=== PATIENT | male | born 1955 | race Caucasian/White ===

== ENCOUNTER 2018-06-28 08:51 | Inpatient (IN) | payer SELFPAY ==
[2018-06-28 10:18] LABS: Hemoglobin 15.9 g/dL (14.0-18.0); Mean Corpuscular HGB CONC 33.7 g/dL (32.0-36.0); Mean Corpuscular Hemoglobin 31.8 pg (27.0-31.0); Mean Corpuscular Volume 94.3 fL (78.0-98.0); Platelet Count 238 thou/uL (130-400); RBC Distribution Width 12.5 % (11.5-14.5); Red Blood Cell (RBC) Count 4.99 mill/uL (4.70-6.10); White Blood Cell (WBC) Count 17.2 thou/uL (4.8-10.8)
[2018-06-28] MEDS ORDERED: Morphine 4 MG/ML VIAL ONE ×2 (10:43→11:36)
[2018-06-28 10:44] LABS: ALT (SGPT) 38 U/L (8-55); AST (SGOT) 28 U/L (5-34); Albumin 3.9 g/dL (3.4-4.8); Alkaline Phosphatase 68 U/L (40-150); Anion Gap 16 mmol/L (10-20); BUN (Urea Nitrogen) 15 mg/dL (8.4-25.7); Bilirubin, Total 1.4 mg/dL (0.2-1.2); Calc. Creatinine Clearance 0 mL/min (70-130); Calcium 9.8 mg/dL (7.8-10.44); Carbon Dioxide 24 mmol/L (23-31); Chloride 91 mmol/L (98-107); Estimated GFR-MDRD 66; Globulin 3.3 g/dL (2.4-3.5); Glucose 123 mg/dL (80-115); Potassium 4.2 mmol/L (3.5-5.1); Protein, Total 7.2 g/dL (5.8-8.1); Sodium 127 mmol/L (136-145)
[2018-06-28 10:59] LABS: Band 49 % (5-11); Lymphocytes 1 % (21-51); MDiff Complete? YES; Metamyelocyte 4 % (0-0); Monocytes 2 % (0-10); Neutrophil 44 % (42-75); Platelet Morphology Comment Appears Adequate; Polychromasia SLIGHT = 2-3 cells (100X) (0-2/hpf); Reflex for Review?? YES
[2018-06-28] MEDS ORDERED: Enoxaparin Sodium 100 MG/ML SYRINGE ONE (11:36)
--- NOTE | 2018-06-28 12:10 | ULT ---
VENOUS DOPPLER ULTRASOUND OF THE LEFT LOWER EXTREMITY: HISTORY: Left leg edema and pain. TECHNIQUE: [place]edo scale ultrasound with color flow and spectral Doppler imaging of the deep venous system of the l eft lower extremity was performed. FINDINGS: There is absence of compression with some flow due to nonocclusive thrombus in the common femoral, de ep femoral, proximal and mid femoral veins. There is absence of flow and compressibility due to occl usive thrombus in the distal femoral, popliteal, and posterior tibial veins. IMPRESSION: Deep vein thrombosis in the left lower extremity. Discussed over the telephone with ER physician, Dr. Sebas Reno, at 11:36 a.m. CODE CR POS: OFF
[2018-06-28] MEDS ORDERED: Clindamycin/D5W 900 mg/50 ml Premix Bag ONE (12:26)
[2018-06-28] MEDS ORDERED: Ondansetron PF 4 MG/2 ML Vial IVP PRN (13:20)
[2018-06-28] MEDS ORDERED: Ondansetron ODT 4 MG TAB PO PRN (13:20)
[2018-06-28] MEDS ORDERED: HYDROcodone/Acetaminophen 5/325 mg Tablet PO PRN (13:20)
[2018-06-28 14:11] VITALS: BMI 23.6
[2018-06-28 14:12] LABS: Lactic Acid 3.7 mmol/L (0.5-2.2)
[2018-06-28] MEDS: Sodium Chloride 0.9% 1,000 ML IV SCH (16:34)
[2018-06-28] MEDS: Enoxaparin Sodium 100 MG/ML SYRINGE SC SCH (20:11)
[2018-06-28] MEDS: Famotidine 20 MG TAB PO SCH (20:12)
[2018-06-28] MEDS: HYDROcodone/Acetaminophen 5/325 mg Tablet PO PRN (20:14)
--- NOTE | 2018-06-28 21:03 | HP ---
PRIMARY CARE PROVIDER: Araceli Herrera MD. CHIEF COMPLAINT: Left lower extremity pain. HISTORY OF PRESENT ILLNESS: This is a 62-year-old male, who presents to [facility] Emergency Department complaining of approximately 48-hour history of left lower extremity pain, swelling, and redness. The patient thought that he initially sustained a spider bite to the lower extremity, but did not actually witness this. 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 The patient denied any direct trauma, injury, or recent injury to the left lower extremity. The patient states he woke up in the morning with swelling to the leg with redness and pain in his groin noting the redness extended from his lower leg to the groin on the inner aspect of his leg. The patient did not take any specific alleviating medication or treatment for his symptoms. The patient denies any prior similar history, exposure history, recent travel, or change to his chronic medication regimen. The patient denies any dysuria, change to his bowel habits, cough, shortness of breath, or documented fever. In the emergency room, the patient underwent general evaluation with left lower extremity venous Doppler study showing evidence of DVT. The patient received Lovenox 1 mg/kg x1 dose in the emergency room as well as clindamycin, vancomycin, morphine sulfate, and intravenous normal saline. The patient was transferred to the medical floor for further evaluation. PAST MEDICAL HISTORY: 1. Hypertension. 2. Seasonal allergies. 3. Depression. PAST SURGICAL HISTORY: 1. Status post sinus surgery. 2. Status post left patellar tendon repair. CURRENT MEDICATIONS: List will need to be obtained by family members. ALLERGIES: NO KNOWN DRUG ALLERGIES. FAMILY HISTORY: No inheritable disease per patient report. SOCIAL HISTORY: The patient resides in [place], [place]. Weekly alcohol use. No tobacco or illicit drug use. 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 REVIEW OF SYSTEMS: CONSTITUTIONAL: Negative for weight loss or gain, ability to conduct usual activities. SKIN: Negative for rash, itching. EYES: Negative for double vision, pain. ENT/MOUTH: Negative for nose bleeding, neck stiffness, pain, tenderness. CARDIOVASCULAR: Negative for palpitations, dyspnea on exertion, orthopnea. RESPIRATORY: Negative for shortness of breath, wheezing, cough, hemoptysis, fever or night sweats. GASTROINTESTINAL: Negative for poor appetite, abdominal pain, heartburn, nausea, vomiting, constipation, or diarrhea. GENITOURINARY: Negative for urgency, frequency, dysuria, nocturia. MUSCULOSKELETAL: Negative for pain, swelling. NEUROLOGIC/PSYCHIATRIC: Negative for anxiety, depression. ALLERGY/IMMUNOLOGIC: Negative for skin rash, bleeding tendency. Otherwise, negative except as stated per HPI. PHYSICAL EXAMINATION: VITAL SIGNS: On admission, blood pressure 128/79, pulse 111, respiratory rate 16, temperature 98.4 degrees Fahrenheit, O2 saturation 100% on room air. GENERAL APPEARANCE: This is a 62-year-old male, alert and oriented x3, pleasant, conversant, in no acute distress. HEENT: Pupils are equal, round, reactive to light and accommodation. Extraocular muscles are intact. No scleral icterus. No conjunctival injection. Nares are patent. OP is clear. Teeth in fair repair. NECK: Supple. No cervical adenopathy. No thyromegaly. No carotid bruits. No JVD appreciated. Cervical spine with full active and passive range of motion. No meningeal signs noted. CHEST: Lungs are clear to auscultation bilaterally. CARDIOVASCULAR: S1 and S2 without noted murmur, rub, or gallop. Tachycardia noted. ABDOMEN: Rounded, soft, nontender, and nondistended. Bowel sounds are positive in all 4 quadrants. There is no hepatosplenomegaly. No abdominal bruits. No rebound or guarding appreciated. EXTREMITIES: Left lower extremity edema with circumferential erythema from the mid portion of the rosales to the ankle region with positive warmth to touch. Medial aspect of the left lower extremity with erythema extending to the groin. Positive lymphadenopathy noted. Pulses are palpable distally at the dorsalis pedis, posterior tibial, and popliteal arteries bilaterally. Capillary refill less than 2 seconds. NEUROLOGIC: Cranial nerves 2 through 12 are grossly intact. No focal or lateralizing signs appreciated. PERTINENT LAB AND X-RAY FINDINGS: Sodium 127, potassium 4.2, chloride 91, CO2 of 24, BUN 15, creatinine 1.12, estimated GFR 66, glucose 123, lactic acid level 3.8, calcium 9.8. LFTs within normal limits. CBC showed a white blood cell count of 17.2, hemoglobin 16, hematocrit 47, platelet count 238 with 44% neutrophils, 49% bands. Left lower extremity venous Doppler study dated 06/28/2018, showed DVT of the left lower extremity involving the common femoral, deep femoral, proximal, and mid femoral veins. ASSESSMENT AND PLAN: 1. Acute left lower extremity deep venous thrombosis. The patient will be admitted to the medical floor. We will continue Lovenox 90 mg subcutaneously q.12 hours. We will consider oral anticoagulation options prior to discharge. Elevate left lower extremity while in bed. 2. Left lower extremity cellulitis. We will continue vancomycin 1.25 g IV q.12 hours with additional Zosyn 3.375 g IV q.6 hours. Serial monitoring. No open wounds requiring wound care. 3. Hyponatremia. Exact etiology unclear. We will repeat sodium level in the a.m. The patient received 1 L intravenous normal saline in the emergency room. 4. Lactic acidosis. Secondary to acute left lower extremity deep venous thrombosis and left lower extremity cellulitis. No current evidence to suggest sepsis. 5. Prophylaxis. We will hold SCDs due to edema and cellulitis. Pepcid 20 mg p.o. b.i.d. 6. Code status is full. Surrogate medical decision maker is the patient's brother. Job ID: [id number]
[2018-06-28] MEDS: Piperacillin/Tazobactam 3.375 GM in Sodium Chloride 0.9% 100 ML IVPB SCH (21:35)
[2018-06-28] MEDS: Vancomycin HCl 1.25 GM in Sodium Chloride 0.9% 250 ML 250 ML IVPB SCH (22:52)
[2018-06-29] MEDS: Sodium Chloride 0.9% 1,000 ML IV SCH ×4 (01:48→20:59)
[2018-06-29] MEDS: Piperacillin/Tazobactam 3.375 GM in Sodium Chloride 0.9% 100 ML IVPB SCH ×3 (03:14→21:06)
[2018-06-29 08:11] LABS: Anion Gap 13 mmol/L (10-20); BUN (Urea Nitrogen) 21 mg/dL (8.4-25.7); Calc. Creatinine Clearance 113 mL/min (70-130); Calcium 8.4 mg/dL (7.8-10.44); Carbon Dioxide 25 mmol/L (23-31); Chloride 96 mmol/L (98-107); Estimated GFR-MDRD Greater than 90; Glucose 81 mg/dL (80-115); Potassium 4.1 mmol/L (3.5-5.1); Sodium 130 mmol/L (136-145)
[2018-06-29] MEDS: Enoxaparin Sodium 100 MG/ML SYRINGE SC SCH ×2 (08:27→20:15)
[2018-06-29] MEDS: HYDROcodone/Acetaminophen 5/325 mg Tablet PO PRN ×2 (08:27→20:14)
[2018-06-29] MEDS: Famotidine 20 MG TAB PO SCH ×2 (08:28→20:14)
[2018-06-29 08:38] LABS: Hemoglobin 13.8 g/dL (14.0-18.0); Mean Corpuscular HGB CONC 33.5 g/dL (32.0-36.0); Mean Corpuscular Hemoglobin 31.8 pg (27.0-31.0); Mean Corpuscular Volume 94.9 fL (78.0-98.0); Mean Platelet Volume 7.9 fL (7.4-10.4); Platelet Count 161 thou/uL (130-400); RBC Distribution Width 12.6 % (11.5-14.5); Red Blood Cell (RBC) Count 4.34 mill/uL (4.70-6.10); White Blood Cell (WBC) Count 9.9 thou/uL (4.8-10.8)
[2018-06-29 09:13] LABS: Band 20 % (5-11); Eosinophils 1 % (0-10); Large Platelets SLIGHT; Lymphocytes 2 % (21-51); MDiff Complete? YES; Metamyelocyte 2 % (0-0); Monocytes 8 % (0-10); Neutrophil 65 % (42-75); Platelet Morphology Comment Appears Adequate; Polychromasia SLIGHT = 2-3 cells (100X) (0-2/hpf); Reactive Lymphocytes 2 % (0-10)
[2018-06-29] MEDS ORDERED: Artificial Tear Sol 15 ML BOT EA EYE PRN (10:12)
[2018-06-29] MEDS ORDERED: Zolpidem Tartrate 5 MG TAB PO PRN (10:12)
[2018-06-29] MEDS ORDERED: Eucerin (Mineral Oil/Petrolatum,White) 30 gm Jar TOP PRN (10:12)
[2018-06-29] MEDS ORDERED: hydrALAZINE 20 MG/ML VIAL SLOW IVP PRN (10:12)
[2018-06-29] MEDS ORDERED: Diabetic Tussin 200 MG/10 ML UDCUP PO PRN (10:12)
[2018-06-29] MEDS ORDERED: Cepastat Lozenges 1 LOZ PO PRN (10:12)
[2018-06-29] MEDS ORDERED: Loperamide HCl 2 MG CAP PO PRN (10:12)
[2018-06-29] MEDS ORDERED: Bisacodyl 10 MG SUPP PR PRN (10:12)
[2018-06-29] MEDS ORDERED: Sodium Chloride 0.65% Nasal 44 ML BOT EA NARE PRN (10:12)
--- NOTE | 2018-06-29 11:15 | PDOC.PN ---
- Subjective Encounter Start Date: 06/29/18 Encounter Start Time: 09:40 -: old records requested/rev Patient seen and examined. No new complaints. No overnight events has left leg pain - Objective Resuscitation Status - Order Detail: 06/28/18 13:15 Resuscitation Status Routine Resuscitation Status: FULL: Full Resuscitation MAR Reviewed: Yes Vital Signs & Weight: Vital Signs (12 hours) Temp Pulse Resp BP Pulse Ox 06/29/18 08:00 97.9 F 86 18 119/69 99 06/29/18 03:20 98.1 F 80 18 102/67 95 06/29/18 00:00 97.5 F L 90 18 108/71 96 Weight Weight 194 lb 0.108 oz I&O: 06/28/18 06/29/18 06/30/18 06:59 06:59 06:59 Intake Total 1600 Output Total 450 Balance 1150 Result Diagrams: 06/29/18 07:20 06/29/18 07:20 Radiology Reviewed by me: Yes Phys Exam - Physical Examination Constitutional: NAD HEENT: PERRLA, moist MMs, sclera anicteric Neck: no JVD, supple Respiratory: no wheezing, no rales, no rhonchi Cardiovascular: RRR, no significant murmur, no rub Gastrointestinal: soft, non-tender, no distention, positive bowel sounds left leg swelling and tenderness Neurological: non-focal, normal sensation, moves all 4 limbs Lymphatic: no nodes Psychiatric: normal affect, A&O x 3 Skin: no rash, normal turgor Dx/Plan (1) Cellulitis of left leg Code(s): L03.116 - CELLULITIS OF LEFT LOWER LIMB Status: Acute (2) Deep vein thrombosis (DVT) of left lower extremity Code(s): I82.402 - ACUTE EMBOLISM AND THOMBOS UNSP DEEP VEINS OF L LOW EXTREM Status: Acute (3) Hyponatremia Code(s): E87.1 - HYPO-OSMOLALITY AND HYPONATREMIA Status: Acute (4) Lactic acidosis Code(s): E87.2 - ACIDOSIS Status: Acute (5) Anxiety and depression Code(s): F41.9 - ANXIETY DISORDER, UNSPECIFIED; F32.9 - MAJOR DEPRESSIVE DISORDER, SINGLE EPISODE, UNSPECIFIED Status: Chronic - Plan cont current plan of care, continue antibiotics * continue lovenox * continue vancomycin and zosyn * keep leg elevated * medication reviewed as below * symptomatic treatment. Review of Systems - Review of Systems Respiratory: negative: Cough, Dry, Shortness of Breath, Hemoptysis, SOB with Excertion, Pleuritic Pain, Sputum, Wheezing Cardiovascular: negative: chest pain, palpitations, orthopnea, paroxysmal nocturnal dyspnea, edema, light headedness, other Gastrointestinal: negative: Nausea, Vomiting, Abdominal Pain, Diarrhea, Constipation, Melena, Hematochezia, Other Genitourinary: negative: Dysuria, Frequency, Incontinence, Hematuria, Retention , Other Musculoskeletal: Leg Pain. negative: Neck Pain, Shoulder Pain, Arm Pain, Back Pain, Hand Pain, Foot Pain, Other Skin: negative: Rash, Lesions, Abiodun, Bruising, Other - Medications/Allergies Allergies/Adverse Reactions: Allergies Allergy/AdvReac Type Severity Reaction Status Date / Time clonidine Allergy Unknown Verified 06/28/18 14:23 lisinopril Allergy Unknown Verified 06/28/18 14:18 Medications: Current Medications Acetaminophen (Tylenol) 1,000 mg PO Q6H PRN PRN Reason: Mild Pain (1-3) Hydrocodone Bitart/Acetaminophen ([place] 5/325) 1 tab PO Q4H PRN PRN Reason: Moderate Pain (4-6) Last Admin: 06/28/18 14:42 Dose: 1 tab Hydrocodone Bitart/Acetaminophen ([place] 5/325) 2 tab PO Q4H PRN PRN Reason: Severe Pain (7-10) Last Admin: 06/29/18 08:27 Dose: 2 tab Artificial Tears (Liquitears 15ml Bottle) 2 drop EA EYE PRN PRN PRN Reason: Dry Eyes Bisacodyl (Dulcolax) 10 mg MD DAILYPRN PRN PRN Reason: Constipation Enoxaparin Sodium (Lovenox) 90 mg SC 0900,2100 [facility] Last Admin: 06/29/18 08:27 Dose: 90 mg Famotidine (Pepcid) 20 mg PO BID [facility] Last Admin: 06/29/18 08:28 Dose: 20 mg Guaifenesin (Robitussin Sf) 200 mg PO Q4H PRN PRN Reason: Cough Hydralazine HCl (Apresoline) 10 mg SLOW IVP Q4H PRN PRN Reason: SBP > 180 and HR < 70 Piperacillin Sod/Tazobactam (Sod 3.375 gm/ Sodium Chloride) 100 mls @ 200 mls/ hr IVPB 0400,1600,2200 [facility] Last Admin: 06/29/18 03:14 Dose: 100 mls Vancomycin HCl 1.25 gm/ Sodium (Chloride) 250 mls @ 166.67 mls/hr IVPB 1100, 2300 [facility] Last Admin: 06/28/18 22:52 Dose: 250 mls Sodium Chloride (Normal Saline 0.9%) 1,000 mls @ 100 mls/hr IV .Q10H [facility] Last Admin: 06/29/18 03:16 Dose: 1,000 mls Loperamide HCl (Imodium) 2 mg PO PRN PRN PRN Reason: Diarrhea/Loose Stools Loratadine (Claritin) 10 mg PO DAILYPRN PRN PRN Reason: Sinus Symptoms Mineral Oil/White Petrolatum (Eucerin Cream) 0 gm TOP BIDPRN PRN PRN Reason: Dry Skin Ondansetron HCl (Zofran Odt) 4 mg PO Q6H PRN PRN Reason: Nausea/Vomiting Ondansetron HCl (Zofran) 4 mg IVP Q6H PRN PRN Reason: Nausea/Vomiting Senna/Docusate Sodium (Senokot S) 2 tab PO BID PRN PRN Reason: Constipation Sodium Chloride ([place] Nasal [place] 0.65%) 0 ml EA NARE QIDPRN PRN PRN Reason: Nasal Congestion Throat Lozenges (Cepastat Lozenges) 1 vikram PO Q2H PRN PRN Reason: Sore Throat Zolpidem Tartrate (Ambien) 5 mg PO HSPRN PRN PRN Reason: Insomnia
[2018-06-29] MEDS: Vancomycin HCl 1.25 GM in Sodium Chloride 0.9% 250 ML 250 ML IVPB SCH ×2 (12:14→22:34)
[2018-06-29] MEDS: Senokot S 8.6-50 MG TAB PO PRN (20:15)
[2018-06-30] MEDS: Piperacillin/Tazobactam 3.375 GM in Sodium Chloride 0.9% 100 ML IVPB SCH ×3 (03:07→21:53)
[2018-06-30] MEDS: HYDROcodone/Acetaminophen 5/325 mg Tablet PO PRN ×3 (03:11→23:00)
[2018-06-30] MEDS: Sodium Chloride 0.9% 1,000 ML IV SCH (03:12)
[2018-06-30] MEDS: Enoxaparin Sodium 100 MG/ML SYRINGE SC SCH ×2 (07:56→20:15)
[2018-06-30] MEDS: Famotidine 20 MG TAB PO SCH ×2 (07:56→20:14)
--- NOTE | 2018-06-30 09:44 | PDOC.PN ---
- Subjective Encounter Start Date: 06/30/18 Encounter Start Time: 09:10 Patient seen and examined. No new complaints. No overnight events pt has improvement in swelling on left leg - Objective Resuscitation Status - Order Detail: 06/28/18 13:15 Resuscitation Status Routine Resuscitation Status: FULL: Full Resuscitation MAR Reviewed: Yes Vital Signs & Weight: Vital Signs (12 hours) Temp Pulse Resp BP BP Pulse Ox 06/30/18 08:00 97.4 F L 80 20 111/61 96 06/30/18 04:16 97.9 F 84 18 106/66 95 06/30/18 01:33 97.7 F 75 18 110/73 96 Weight Weight 194 lb 0.108 oz I&O: 06/29/18 06/30/18 07/01/18 06:59 06:59 06:59 Intake Total 1600 2450 Output Total 450 1300 Balance 1150 1150 Result Diagrams: 06/29/18 07:20 06/29/18 07:20 Phys Exam - Physical Examination Constitutional: NAD HEENT: PERRLA, moist MMs, sclera anicteric Neck: no JVD, supple Respiratory: no wheezing, no rales, no rhonchi Cardiovascular: RRR, no significant murmur, no rub Gastrointestinal: soft, non-tender, no distention, positive bowel sounds Musculoskeletal: no edema, pulses present Neurological: non-focal, normal sensation, moves all 4 limbs Lymphatic: no nodes Psychiatric: normal affect, A&O x 3 Skin: no rash, normal turgor Dx/Plan (1) Cellulitis of left leg Code(s): L03.116 - CELLULITIS OF LEFT LOWER LIMB Status: Acute (2) Deep vein thrombosis (DVT) of left lower extremity Code(s): I82.402 - ACUTE EMBOLISM AND THOMBOS UNSP DEEP VEINS OF L LOW EXTREM Status: Acute (3) Hyponatremia Code(s): E87.1 - HYPO-OSMOLALITY AND HYPONATREMIA Status: Acute (4) Lactic acidosis Code(s): E87.2 - ACIDOSIS Status: Acute (5) Anxiety and depression Code(s): F41.9 - ANXIETY DISORDER, UNSPECIFIED; F32.9 - MAJOR DEPRESSIVE DISORDER, SINGLE EPISODE, UNSPECIFIED Status: Chronic - Plan cont current plan of care, continue antibiotics * medication reviewed as below * symptomatic treatment * continue vancomycin and zosyn * continue lovenox * elliquis on discharge * pain controlled * pt is improving. Review of Systems - Review of Systems ENT: negative: Ear Pain, Ear Discharge, Nose Pain, Nose Discharge, Nose Congestion, Mouth Pain, Mouth Swelling, Throat Pain, Throat Swelling, Other Respiratory: negative: Cough, Dry, Shortness of Breath, Hemoptysis, SOB with Excertion, Pleuritic Pain, Sputum, Wheezing Cardiovascular: negative: chest pain, palpitations, orthopnea, paroxysmal nocturnal dyspnea, edema, light headedness, other Gastrointestinal: negative: Nausea, Vomiting, Abdominal Pain, Diarrhea, Constipation, Melena, Hematochezia, Other Genitourinary: negative: Dysuria, Frequency, Incontinence, Hematuria, Retention , Other Musculoskeletal: Leg Pain. negative: Neck Pain, Shoulder Pain, Arm Pain, Back Pain, Hand Pain, Foot Pain, Other - Medications/Allergies Allergies/Adverse Reactions: Allergies Allergy/AdvReac Type Severity Reaction Status Date / Time clonidine Allergy Unknown Verified 06/28/18 14:23 lisinopril Allergy Unknown Verified 06/28/18 14:18 Medications: Current Medications Acetaminophen (Tylenol) 1,000 mg PO Q6H PRN PRN Reason: Mild Pain (1-3) Hydrocodone Bitart/Acetaminophen ([place] 5/325) 1 tab PO Q4H PRN PRN Reason: Moderate Pain (4-6) Last Admin: 06/28/18 14:42 Dose: 1 tab Hydrocodone Bitart/Acetaminophen ([place] 5/325) 2 tab PO Q4H PRN PRN Reason: Severe Pain (7-10) Last Admin: 06/30/18 03:11 Dose: 2 tab Artificial Tears (Liquitears 15ml Bottle) 2 drop EA EYE PRN PRN PRN Reason: Dry Eyes Bisacodyl (Dulcolax) 10 mg [place] DAILYPRN PRN PRN Reason: Constipation Enoxaparin Sodium (Lovenox) 90 mg SC 0900,2100 [facility] Last Admin: 06/30/18 07:56 Dose: 90 mg Famotidine (Pepcid) 20 mg PO BID [facility] Last Admin: 06/30/18 07:56 Dose: 20 mg Guaifenesin (Robitussin Sf) 200 mg PO Q4H PRN PRN Reason: Cough Hydralazine HCl (Apresoline) 10 mg SLOW IVP Q4H PRN PRN Reason: SBP > 180 and HR < 70 Piperacillin Sod/Tazobactam (Sod 3.375 gm/ Sodium Chloride) 100 mls @ 200 mls/ hr IVPB 0400,1600,2200 [facility] Last Admin: 06/30/18 03:07 Dose: 100 mls Vancomycin HCl 1.25 gm/ Sodium (Chloride) 250 mls @ 166.67 mls/hr IVPB 1100, 2300 [facility] Last Admin: 06/29/18 22:34 Dose: 250 mls Loperamide HCl (Imodium) 2 mg PO PRN PRN PRN Reason: Diarrhea/Loose Stools Loratadine (Claritin) 10 mg PO DAILYPRN PRN PRN Reason: Sinus Symptoms Mineral Oil/White Petrolatum (Eucerin Cream) 0 gm TOP BIDPRN PRN PRN Reason: Dry Skin Ondansetron HCl (Zofran Odt) 4 mg PO Q6H PRN PRN Reason: Nausea/Vomiting Ondansetron HCl (Zofran) 4 mg IVP Q6H PRN PRN Reason: Nausea/Vomiting Senna/Docusate Sodium (Senokot S) 2 tab PO BID PRN PRN Reason: Constipation Last Admin: 06/29/18 20:15 Dose: 2 tab Sodium Chloride ([place] Nasal [place] 0.65%) 0 ml EA NARE QIDPRN PRN PRN Reason: Nasal Congestion Throat Lozenges (Cepastat Lozenges) 1 vikram PO Q2H PRN PRN Reason: Sore Throat Zolpidem Tartrate (Ambien) 5 mg PO HSPRN PRN PRN Reason: Insomnia
[2018-06-30] MEDS: Vancomycin HCl 1.25 GM in Sodium Chloride 0.9% 250 ML 250 ML IVPB SCH (11:45)
[2018-06-30] MEDS: Loratadine 10 MG TAB PO PRN (11:56)
[2018-06-30] MEDS: Senokot S 8.6-50 MG TAB PO PRN (20:14)
[2018-06-30 22:38] LABS: Vancomycin, Trough 9.7 ug/mL
[2018-06-30] MEDS: Vancomycin HCl 1.75 GM in Sodium Chloride 0.9% 500 ML IVPB SCH (23:01)
[2018-07-01] MEDS: Piperacillin/Tazobactam 3.375 GM in Sodium Chloride 0.9% 100 ML IVPB SCH ×3 (03:14→22:48)
[2018-07-01 06:46] LABS: Band 8 % (5-11); Hemoglobin 12.5 g/dL (14.0-18.0); Hypochromia SLIGHT = 6-15 cells (100X) (0-5/hpf); Lymphocytes 1 % (21-51); MDiff Complete? YES; Mean Corpuscular HGB CONC 31.9 g/dL (32.0-36.0); Mean Corpuscular Hemoglobin 30.2 pg (27.0-31.0); Mean Corpuscular Volume 94.6 fL (78.0-98.0); Mean Platelet Volume 7.9 fL (7.4-10.4); Monocytes 3 % (0-10); Neutrophil 88 % (42-75); Platelet Count 185 thou/uL (130-400); Platelet Morphology Comment Appears Adequate; RBC Distribution Width 12.7 % (11.5-14.5); Red Blood Cell (RBC) Count 4.15 mill/uL (4.70-6.10); White Blood Cell (WBC) Count 10.2 thou/uL (4.8-10.8)
[2018-07-01 06:52] LABS: ALT (SGPT) 26 U/L (8-55); AST (SGOT) 26 U/L (5-34); Albumin 2.5 g/dL (3.4-4.8); Alkaline Phosphatase 198 U/L (40-150); Anion Gap 12 mmol/L (10-20); BUN (Urea Nitrogen) 10 mg/dL (8.4-25.7); Bilirubin, Total 0.9 mg/dL (0.2-1.2); CRP (Inflammatory) 25.91 mg/dL (= or < 0.5); Calc. Creatinine Clearance 145 mL/min (70-130); Calcium 8.4 mg/dL (7.8-10.44); Carbon Dioxide 23 mmol/L (23-31); Chloride 101 mmol/L (98-107); Estimated GFR-MDRD Greater than 90; Globulin 2.4 g/dL (2.4-3.5); Glucose 79 mg/dL (80-115); Protein, Total 4.9 g/dL (5.8-8.1); Sodium 133 mmol/L (136-145)
[2018-07-01] MEDS: Famotidine 20 MG TAB PO SCH ×2 (08:02→20:06)
[2018-07-01] MEDS: Enoxaparin Sodium 100 MG/ML SYRINGE SC SCH ×2 (08:03→20:06)
[2018-07-01] MEDS ORDERED: Potassium Chloride 20 MEQ TAB PO SCH (08:15)
[2018-07-01] MEDS: Vancomycin HCl 1.75 GM in Sodium Chloride 0.9% 500 ML IVPB SCH (11:22)
[2018-07-01 11:25] LABS: Lactic Acid 1.1 mmol/L (0.5-2.2)
--- NOTE | 2018-07-01 11:43 | PDOC.PN ---
- Subjective Encounter Start Date: 07/01/18 Encounter Start Time: 09:30 Patient seen and examined. No new complaints. No overnight events - Objective Resuscitation Status - Order Detail: 06/28/18 13:15 Resuscitation Status Routine Resuscitation Status: FULL: Full Resuscitation MAR Reviewed: Yes Vital Signs & Weight: Vital Signs (12 hours) Temp Pulse Resp BP BP Pulse Ox 07/01/18 07:55 97.6 F 88 20 145/88 H 99 07/01/18 05:07 98.1 F 81 18 120/67 96 Weight Weight 194 lb 0.108 oz I&O: 06/30/18 07/01/18 07/02/18 06:59 06:59 06:59 Intake Total 2450 2250 Output Total 1300 2350 Balance 1150 -100 Result Diagrams: 07/01/18 05:14 07/01/18 05:14 Phys Exam - Physical Examination Constitutional: NAD HEENT: PERRLA, moist MMs, sclera anicteric Neck: no JVD, supple Respiratory: no wheezing, no rales, no rhonchi Cardiovascular: RRR, no significant murmur, no rub Gastrointestinal: soft, non-tender, no distention, positive bowel sounds Musculoskeletal: pulses present left leg cellulitis, swelling, tenderness Neurological: non-focal, normal sensation, moves all 4 limbs Lymphatic: no nodes Psychiatric: normal affect, A&O x 3 Skin: no rash, normal turgor Dx/Plan (1) Cellulitis of left leg Code(s): L03.116 - CELLULITIS OF LEFT LOWER LIMB Status: Acute (2) Deep vein thrombosis (DVT) of left lower extremity Code(s): I82.402 - ACUTE EMBOLISM AND THOMBOS UNSP DEEP VEINS OF L LOW EXTREM Status: Acute (3) Hyponatremia Code(s): E87.1 - HYPO-OSMOLALITY AND HYPONATREMIA Status: Acute (4) Lactic acidosis Code(s): E87.2 - ACIDOSIS Status: Acute (5) Anxiety and depression Code(s): F41.9 - ANXIETY DISORDER, UNSPECIFIED; F32.9 - MAJOR DEPRESSIVE DISORDER, SINGLE EPISODE, UNSPECIFIED Status: Chronic - Plan cont current plan of care, continue antibiotics * pt has slow improvement but still lot of edema and swelling with pain * continue iv antibiotics * i discussed with pt about advantage and disadvantage of elliquis and pt prefers that meds on discharge * will change to elliquis tomorrow * medication reviewed as below * symptomatic treatment. Review of Systems - Review of Systems ENT: negative: Ear Pain, Ear Discharge, Nose Pain, Nose Discharge, Nose Congestion, Mouth Pain, Mouth Swelling, Throat Pain, Throat Swelling, Other Respiratory: negative: Cough, Dry, Shortness of Breath, Hemoptysis, SOB with Excertion, Pleuritic Pain, Sputum, Wheezing Cardiovascular: negative: chest pain, palpitations, orthopnea, paroxysmal nocturnal dyspnea, edema, light headedness, other Gastrointestinal: negative: Nausea, Vomiting, Abdominal Pain, Diarrhea, Constipation, Melena, Hematochezia, Other Genitourinary: negative: Dysuria, Frequency, Incontinence, Hematuria, Retention , Other Musculoskeletal: Leg Pain. negative: Neck Pain, Shoulder Pain, Arm Pain, Back Pain, Hand Pain, Foot Pain, Other - Medications/Allergies Allergies/Adverse Reactions: Allergies Allergy/AdvReac Type Severity Reaction Status Date / Time clonidine Allergy Unknown Verified 06/28/18 14:23 lisinopril Allergy Unknown Verified 06/28/18 14:18 Medications: Current Medications Acetaminophen (Tylenol) 1,000 mg PO Q6H PRN PRN Reason: Mild Pain (1-3) Hydrocodone Bitart/Acetaminophen ([place] 5/325) 1 tab PO Q4H PRN PRN Reason: Moderate Pain (4-6) Last Admin: 06/28/18 14:42 Dose: 1 tab Hydrocodone Bitart/Acetaminophen ([place] 5/325) 2 tab PO Q4H PRN PRN Reason: Severe Pain (7-10) Last Admin: 06/30/18 23:00 Dose: 2 tab Artificial Tears (Liquitears 15ml Bottle) 2 drop EA EYE PRN PRN PRN Reason: Dry Eyes Bisacodyl (Dulcolax) 10 mg [place] DAILYPRN PRN PRN Reason: Constipation Enoxaparin Sodium (Lovenox) 90 mg SC 0900,2100 [facility] Last Admin: 07/01/18 08:03 Dose: 90 mg Famotidine (Pepcid) 20 mg PO BID [facility] Last Admin: 07/01/18 08:02 Dose: 20 mg Guaifenesin (Robitussin Sf) 200 mg PO Q4H PRN PRN Reason: Cough Hydralazine HCl (Apresoline) 10 mg SLOW IVP Q4H PRN PRN Reason: SBP > 180 and HR < 70 Piperacillin Sod/Tazobactam (Sod 3.375 gm/ Sodium Chloride) 100 mls @ 200 mls/ hr IVPB 0400,1600,2200 [facility] Last Admin: 07/01/18 03:14 Dose: 100 mls Vancomycin HCl 1.75 gm/ Sodium (Chloride) 500 mls @ 250 mls/hr IVPB 1100,2300 [facility] Last Admin: 07/01/18 11:22 Dose: 500 mls Loperamide HCl (Imodium) 2 mg PO PRN PRN PRN Reason: Diarrhea/Loose Stools Loratadine (Claritin) 10 mg PO DAILYPRN PRN PRN Reason: Sinus Symptoms Last Admin: 06/30/18 11:56 Dose: 10 mg Mineral Oil/White Petrolatum (Eucerin Cream) 0 gm TOP BIDPRN PRN PRN Reason: Dry Skin Ondansetron HCl (Zofran Odt) 4 mg PO Q6H PRN PRN Reason: Nausea/Vomiting Ondansetron HCl (Zofran) 4 mg IVP Q6H PRN PRN Reason: Nausea/Vomiting Senna/Docusate Sodium (Senokot S) 2 tab PO BID PRN PRN Reason: Constipation Last Admin: 06/30/18 20:14 Dose: 2 tab Sodium Chloride ([place] Nasal [place] 0.65%) 0 ml EA NARE QIDPRN PRN PRN Reason: Nasal Congestion Throat Lozenges (Cepastat Lozenges) 1 vikram PO Q2H PRN PRN Reason: Sore Throat Zolpidem Tartrate (Ambien) 5 mg PO HSPRN PRN PRN Reason: Insomnia
[2018-07-01] MEDS: HYDROcodone/Acetaminophen 5/325 mg Tablet PO PRN (16:58)
[2018-07-02] MEDS: Vancomycin HCl 1.75 GM in Sodium Chloride 0.9% 500 ML IVPB SCH ×3 (00:09→23:43)
[2018-07-02] MEDS: Piperacillin/Tazobactam 3.375 GM in Sodium Chloride 0.9% 100 ML IVPB SCH ×3 (04:52→22:07)
[2018-07-02] MEDS: Famotidine 20 MG TAB PO SCH ×2 (08:47→21:59)
[2018-07-02] MEDS: Senokot S 8.6-50 MG TAB PO PRN (08:47)
[2018-07-02] MEDS: HYDROcodone/Acetaminophen 5/325 mg Tablet PO PRN ×2 (08:47→22:02)
[2018-07-02] MEDS: Apixaban 5 MG TAB PO SCH ×2 (08:48→22:00)
--- NOTE | 2018-07-02 11:33 | PDOC.PN ---
- Subjective Encounter Start Date: 07/02/18 Encounter Start Time: 10:00 pt's cellulitis wound draining serous fluid, required dressing, his pain is less , no fever, swelling little less today - Objective Resuscitation Status - Order Detail: 06/28/18 13:15 Resuscitation Status Routine Resuscitation Status: FULL: Full Resuscitation MAR Reviewed: Yes Vital Signs & Weight: Vital Signs (12 hours) Temp Pulse Resp BP Pulse Ox 07/02/18 08:00 97 07/02/18 07:53 98.5 F 78 22 H 147/82 H 97 07/02/18 06:08 98.3 F 77 16 121/79 94 L 07/02/18 00:00 98.2 F 82 18 142/89 H 97 Weight Weight 194 lb 0.108 oz I&O: 07/01/18 07/02/18 07/03/18 06:59 06:59 06:59 Intake Total 2250 Output Total 2350 Balance -100 Result Diagrams: 07/01/18 05:14 07/01/18 05:14 Phys Exam - Physical Examination Constitutional: NAD HEENT: PERRLA, moist MMs, sclera anicteric Neck: no JVD, supple Respiratory: no wheezing, no rales, no rhonchi Cardiovascular: RRR, no significant murmur, no rub Gastrointestinal: soft, non-tender, no distention, positive bowel sounds left leg swelling, drainage, with dressing Neurological: non-focal, normal sensation, moves all 4 limbs Lymphatic: no nodes Psychiatric: normal affect, A&O x 3 Skin: no rash, normal turgor Dx/Plan (1) Cellulitis of left leg Code(s): L03.116 - CELLULITIS OF LEFT LOWER LIMB Status: Acute (2) Deep vein thrombosis (DVT) of left lower extremity Code(s): I82.402 - ACUTE EMBOLISM AND THOMBOS UNSP DEEP VEINS OF L LOW EXTREM Status: Acute (3) Hyponatremia Code(s): E87.1 - HYPO-OSMOLALITY AND HYPONATREMIA Status: Acute (4) Lactic acidosis Code(s): E87.2 - ACIDOSIS Status: Acute (5) Anxiety and depression Code(s): F41.9 - ANXIETY DISORDER, UNSPECIFIED; F32.9 - MAJOR DEPRESSIVE DISORDER, SINGLE EPISODE, UNSPECIFIED Status: Chronic - Plan cont current plan of care, continue antibiotics * today will change to elliquis 10 mg po bid for total 7 days since admission * medication reviewed as below * symptomatic treatment * continue vancomycin and zosyn * wound care * repeat labs tomorrow. Review of Systems - Review of Systems ENT: negative: Ear Pain, Ear Discharge, Nose Pain, Nose Discharge, Nose Congestion, Mouth Pain, Mouth Swelling, Throat Pain, Throat Swelling, Other Respiratory: negative: Cough, Dry, Shortness of Breath, Hemoptysis, SOB with Excertion, Pleuritic Pain, Sputum, Wheezing Cardiovascular: negative: chest pain, palpitations, orthopnea, paroxysmal nocturnal dyspnea, edema, light headedness, other Gastrointestinal: negative: Nausea, Vomiting, Abdominal Pain, Diarrhea, Constipation, Melena, Hematochezia, Other Genitourinary: negative: Dysuria, Frequency, Incontinence, Hematuria, Retention , Other Musculoskeletal: Leg Pain. negative: Neck Pain, Shoulder Pain, Arm Pain, Back Pain, Hand Pain, Foot Pain, Other - Medications/Allergies Allergies/Adverse Reactions: Allergies Allergy/AdvReac Type Severity Reaction Status Date / Time clonidine Allergy Unknown Verified 06/28/18 14:23 lisinopril Allergy Unknown Verified 06/28/18 14:18 Medications: Current Medications Acetaminophen (Tylenol) 1,000 mg PO Q6H PRN PRN Reason: Mild Pain (1-3) Hydrocodone Bitart/Acetaminophen ([place] 5/325) 1 tab PO Q4H PRN PRN Reason: Moderate Pain (4-6) Last Admin: 06/28/18 14:42 Dose: 1 tab Hydrocodone Bitart/Acetaminophen ([place] 5/325) 2 tab PO Q4H PRN PRN Reason: Severe Pain (7-10) Last Admin: 07/02/18 08:47 Dose: 2 tab Apixaban (Eliquis) 10 mg PO BID [facility] Last Admin: 07/02/18 08:48 Dose: 10 mg Artificial Tears (Liquitears 15ml Bottle) 2 drop EA EYE PRN PRN PRN Reason: Dry Eyes Bisacodyl (Dulcolax) 10 mg [place] DAILYPRN PRN PRN Reason: Constipation Famotidine (Pepcid) 20 mg PO BID [facility] Last Admin: 07/02/18 08:47 Dose: 20 mg Guaifenesin (Robitussin Sf) 200 mg PO Q4H PRN PRN Reason: Cough Hydralazine HCl (Apresoline) 10 mg SLOW IVP Q4H PRN PRN Reason: SBP > 180 and HR < 70 Piperacillin Sod/Tazobactam (Sod 3.375 gm/ Sodium Chloride) 100 mls @ 200 mls/ hr IVPB 0400,1600,2200 [facility] Last Admin: 07/02/18 04:52 Dose: 100 mls Vancomycin HCl 1.75 gm/ Sodium (Chloride) 500 mls @ 250 mls/hr IVPB 1100,2300 [facility] Last Admin: 07/02/18 00:09 Dose: 500 mls Loperamide HCl (Imodium) 2 mg PO PRN PRN PRN Reason: Diarrhea/Loose Stools Loratadine (Claritin) 10 mg PO DAILYPRN PRN PRN Reason: Sinus Symptoms Last Admin: 06/30/18 11:56 Dose: 10 mg Mineral Oil/White Petrolatum (Eucerin Cream) 0 gm TOP BIDPRN PRN PRN Reason: Dry Skin Ondansetron HCl (Zofran Odt) 4 mg PO Q6H PRN PRN Reason: Nausea/Vomiting Ondansetron HCl (Zofran) 4 mg IVP Q6H PRN PRN Reason: Nausea/Vomiting Senna/Docusate Sodium (Senokot S) 2 tab PO BID PRN PRN Reason: Constipation Last Admin: 07/02/18 08:47 Dose: 2 tab Sodium Chloride ([place] Nasal [place] 0.65%) 0 ml EA NARE QIDPRN PRN PRN Reason: Nasal Congestion Throat Lozenges (Cepastat Lozenges) 1 vikram PO Q2H PRN PRN Reason: Sore Throat Zolpidem Tartrate (Ambien) 5 mg PO HSPRN PRN PRN Reason: Insomnia
[2018-07-03] MEDS: Piperacillin/Tazobactam 3.375 GM in Sodium Chloride 0.9% 100 ML IVPB SCH ×2 (04:19→16:31)
[2018-07-03 06:39] LABS: Hemoglobin 12.8 g/dL (14.0-18.0); Mean Corpuscular HGB CONC 33.8 g/dL (32.0-36.0); Mean Corpuscular Hemoglobin 31.7 pg (27.0-31.0); Mean Corpuscular Volume 93.7 fL (78.0-98.0); Mean Platelet Volume 7.5 fL (7.4-10.4); Platelet Count 255 thou/uL (130-400); RBC Distribution Width 13.1 % (11.5-14.5); Red Blood Cell (RBC) Count 4.03 mill/uL (4.70-6.10); White Blood Cell (WBC) Count 11.6 thou/uL (4.8-10.8)
[2018-07-03 06:43] LABS: Anion Gap 10 mmol/L (10-20); BUN (Urea Nitrogen) 7 mg/dL (8.4-25.7); Calc. Creatinine Clearance 147 mL/min (70-130); Calcium 8.1 mg/dL (7.8-10.44); Carbon Dioxide 28 mmol/L (23-31); Chloride 101 mmol/L (98-107); Estimated GFR-MDRD Greater than 90; Glucose 100 mg/dL (80-115); Sodium 136 mmol/L (136-145)
[2018-07-03 06:49] LABS: Potassium 2.8 mmol/L (3.5-5.1)
[2018-07-03 07:12] LABS: Band 8 % (5-11); Eosinophils 1 % (0-10); Lymphocytes 15 % (21-51); MDiff Complete? YES; Metamyelocyte 1 % (0-0); Monocytes 8 % (0-10); Myelocyte 2 % (0-0); Neutrophil 61 % (42-75); Platelet Morphology Comment Appears Adequate; Polychromasia SLIGHT = 2-3 cells (100X) (0-2/hpf); Reactive Lymphocytes 4 % (0-10)
[2018-07-03] MEDS ORDERED: Potassium Chloride 20 MEQ/100 ML PREMIX BAG IVPB SCH (08:30)
[2018-07-03 09:17] LABS: Magnesium 1.4 mg/dL (1.6-2.6); Phosphorus 2.1 mg/dL (2.3-4.7)
[2018-07-03] MEDS: Famotidine 20 MG TAB PO SCH ×2 (09:20→20:42)
[2018-07-03] MEDS: Apixaban 5 MG TAB PO SCH ×2 (09:20→20:42)
[2018-07-03] MEDS: Potassium Chloride 20 MEQ TAB PO SCH ×2 (09:20→16:31)
[2018-07-03] MEDS: Senokot S 8.6-50 MG TAB PO PRN ×2 (09:21→20:48)
[2018-07-03] MEDS: HYDROcodone/Acetaminophen 5/325 mg Tablet PO PRN ×3 (09:25→20:42)
[2018-07-03] MEDS ORDERED: Magnesium Sulfate 3 GM in Sodium Chloride 0.9% 100 ML IVPB SCH (11:30)
[2018-07-03] MEDS ORDERED: Potassium Phosphate 30 MMOL in Sodium Chloride 0.9% 500 ML IVPB SCH (11:30)
[2018-07-03] MEDS: Vancomycin HCl 1.75 GM in Sodium Chloride 0.9% 500 ML IVPB SCH (11:32)
--- NOTE | 2018-07-03 12:55 | PDOC.PN ---
- Subjective Encounter Start Date: 07/03/18 Encounter Start Time: 10:15 Patient seen and examined. No new complaints. No overnight events - Objective Resuscitation Status - Order Detail: 06/28/18 13:15 Resuscitation Status Routine Resuscitation Status: FULL: Full Resuscitation MAR Reviewed: Yes Vital Signs & Weight: Vital Signs (12 hours) Temp Pulse Resp BP Pulse Ox 07/03/18 08:32 98.7 F 77 20 145/85 H 96 07/03/18 08:00 93 L 07/03/18 04:00 98.0 F 75 18 145/86 H 97 Weight Weight 194 lb 0.108 oz I&O: 07/02/18 07/03/18 07/04/18 06:59 06:59 06:59 Intake Total 2069 400 Output Total 900 Balance 0 -500 Result Diagrams: 07/03/18 05:24 07/03/18 05:24 Phys Exam - Physical Examination Constitutional: NAD HEENT: PERRLA, moist MMs, sclera anicteric Neck: no JVD, supple Respiratory: no wheezing, no rales, no rhonchi Cardiovascular: RRR, no significant murmur, no rub Gastrointestinal: soft, non-tender, no distention, positive bowel sounds Musculoskeletal: pulses present cellulitis with wound noted Neurological: non-focal, normal sensation, moves all 4 limbs Lymphatic: no nodes Psychiatric: normal affect, A&O x 3 Skin: no rash, normal turgor Dx/Plan (1) Cellulitis of left leg Code(s): L03.116 - CELLULITIS OF LEFT LOWER LIMB Status: Acute (2) Deep vein thrombosis (DVT) of left lower extremity Code(s): I82.402 - ACUTE EMBOLISM AND THOMBOS UNSP DEEP VEINS OF L LOW EXTREM Status: Acute (3) Hyponatremia Code(s): E87.1 - HYPO-OSMOLALITY AND HYPONATREMIA Status: Acute (4) Lactic acidosis Code(s): E87.2 - ACIDOSIS Status: Acute (5) Anxiety and depression Code(s): F41.9 - ANXIETY DISORDER, UNSPECIFIED; F32.9 - MAJOR DEPRESSIVE DISORDER, SINGLE EPISODE, UNSPECIFIED Status: Chronic - Plan cont current plan of care, continue antibiotics * medication reviewed as below * symptomatic treatment * consult ID for opinion * wound care * continue vancomycin and zosyn * continue elliquis. Review of Systems - Review of Systems ENT: negative: Ear Pain, Ear Discharge, Nose Pain, Nose Discharge, Nose Congestion, Mouth Pain, Mouth Swelling, Throat Pain, Throat Swelling, Other Respiratory: negative: Cough, Dry, Shortness of Breath, Hemoptysis, SOB with Excertion, Pleuritic Pain, Sputum, Wheezing Cardiovascular: negative: chest pain, palpitations, orthopnea, paroxysmal nocturnal dyspnea, edema, light headedness, other Gastrointestinal: negative: Nausea, Vomiting, Abdominal Pain, Diarrhea, Constipation, Melena, Hematochezia, Other Genitourinary: negative: Dysuria, Frequency, Incontinence, Hematuria, Retention , Other Musculoskeletal: negative: Neck Pain, Shoulder Pain, Arm Pain, Back Pain, Hand Pain, Leg Pain, Foot Pain, Other - Medications/Allergies Allergies/Adverse Reactions: Allergies Allergy/AdvReac Type Severity Reaction Status Date / Time clonidine Allergy Unknown Verified 06/28/18 14:23 lisinopril Allergy Unknown Verified 06/28/18 14:18 Medications: Current Medications Acetaminophen (Tylenol) 1,000 mg PO Q6H PRN PRN Reason: Mild Pain (1-3) Hydrocodone Bitart/Acetaminophen ([place] 5/325) 1 tab PO Q4H PRN PRN Reason: Moderate Pain (4-6) Last Admin: 06/28/18 14:42 Dose: 1 tab Hydrocodone Bitart/Acetaminophen ([place] 5/325) 2 tab PO Q4H PRN PRN Reason: Severe Pain (7-10) Last Admin: 07/03/18 09:25 Dose: 2 tab Apixaban (Eliquis) 10 mg PO BID [facility] Last Admin: 07/03/18 09:20 Dose: 10 mg Artificial Tears (Liquitears 15ml Bottle) 2 drop EA EYE PRN PRN PRN Reason: Dry Eyes Bisacodyl (Dulcolax) 10 mg [place] DAILYPRN PRN PRN Reason: Constipation Famotidine (Pepcid) 20 mg PO BID [facility] Last Admin: 07/03/18 09:20 Dose: 20 mg Guaifenesin (Robitussin Sf) 200 mg PO Q4H PRN PRN Reason: Cough Hydralazine HCl (Apresoline) 10 mg SLOW IVP Q4H PRN PRN Reason: SBP > 180 and HR < 70 Piperacillin Sod/Tazobactam (Sod 3.375 gm/ Sodium Chloride) 100 mls @ 200 mls/ hr IVPB 0400,1600,2200 [facility] Last Admin: 07/03/18 04:19 Dose: 100 mls Vancomycin HCl 1.75 gm/ Sodium (Chloride) 500 mls @ 250 mls/hr IVPB 1100,2300 [facility] Last Admin: 07/03/18 11:32 Dose: 500 mls Magnesium Sulfate 3 gm/ Sodium (Chloride) 106 mls @ 100 mls/hr IVPB NOW [facility] Stop: 07/03/18 13:30 Last Admin: 07/03/18 11:32 Dose: 106 mls Potassium Phosphate 30 mmol/ (Sodium Chloride) 510 mls @ 83.3 mls/hr IVPB NOW [facility] Stop: 07/03/18 17:38 Last Admin: 07/03/18 12:41 Dose: 510 mls Loperamide HCl (Imodium) 2 mg PO PRN PRN PRN Reason: Diarrhea/Loose Stools Loratadine (Claritin) 10 mg PO DAILYPRN PRN PRN Reason: Sinus Symptoms Last Admin: 06/30/18 11:56 Dose: 10 mg Mineral Oil/White Petrolatum (Eucerin Cream) 0 gm TOP BIDPRN PRN PRN Reason: Dry Skin Ondansetron HCl (Zofran Odt) 4 mg PO Q6H PRN PRN Reason: Nausea/Vomiting Ondansetron HCl (Zofran) 4 mg IVP Q6H PRN PRN Reason: Nausea/Vomiting Potassium Chloride (K-Dur) 40 meq PO BID[facility] Stop: 07/03/18 17:01 Last Admin: 07/03/18 09:20 Dose: 40 meq Senna/Docusate Sodium (Senokot S) 2 tab PO BID PRN PRN Reason: Constipation Last Admin: 07/03/18 09:21 Dose: 2 tab Sodium Chloride ([place] Nasal [place] 0.65%) 0 ml EA NARE QIDPRN PRN PRN Reason: Nasal Congestion Throat Lozenges (Cepastat Lozenges) 1 vikram PO Q2H PRN PRN Reason: Sore Throat Zolpidem Tartrate (Ambien) 5 mg PO HSPRN PRN PRN Reason: Insomnia
[2018-07-03] MEDS: cefTRIAXone\\ROCEPHIN 2 GM in Sodium Chloride 0.9% 100 ML IVPB SCH (18:28)
--- NOTE | 2018-07-03 23:00 | CON ---
DATE OF CONSULTATION: 07/03/2018 REASON FOR CONSULTATION: Left lower extremity cellulitis and deep vein thrombosis. HISTORY OF PRESENT ILLNESS: A 62-year-old patient who has a history of hypertension and a previous cat bite-associated infection in the right upper extremity who was well until one day before admission when he developed acute onset of inflammatory changes in the left lower extremity. Until that date, he actually had been working and he did work the same day that he got sick because his job does not have enough workers to keep up with the needs of the company. After that day, he could not handle anymore and ended up coming to the emergency room and was admitted. The initial findings showed a BP of 120/70, pulse 111, respirations 16, and a normal temperature. He appeared in no distress, was oriented. Pertinent findings in the exam: Lungs, clear. Heart exam was normal. Heart exam showed S1 and S2 without murmurs. Abdomen was soft. There was swelling of the left lower extremity extending from the foot all the way to the groin area with a circumferential erythema. He did have a duplex ultrasound, which showed left lower extremity deep vein thrombosis, which was quite extensive. He was admitted and placed on Lovenox and cellulitis was also identified and he was treated with Zosyn and vancomycin. So, he has been in the hospital now for going on 5 days and the rate of improvement has not been to the degree that one would expect and therefore, we were asked to evaluate. The patient is awake. He appears somewhat upset about this sluggishness of improvement. Denies any headaches. No visual symptoms, sore throat, odynophagia, dysphagia, no cough or sputum production. No chest pain, no abdominal pain or diarrhea. No genitourinary symptoms. No joint symptoms. His left lower extremity is quite painful still. He has developed blisters in the medial and lateral aspects of the ankle, left side. No diarrhea. No genitourinary symptoms. MEDICAL HISTORY: 1. Hypertension. 2. Allergies. 3. Depression. 4. He also had an infection of the right hand associated with what he remembers Staphylococcus aureus and it was apparently following a cat bite. SURGICAL HISTORY: 1. Sinus surgery. 2. Patellar tendon repair. ALLERGIES: NONE. FAMILY HISTORY: Noncontributory. 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 PHYSICAL EXAMINATION: VITAL SIGNS: T-max of 98.1, blood pressure 140/90, pulse 78, respirations 20, and O2 saturation 95%. SKIN: Shows circumferential erythema with petechiae in the left lower extremity. There are areas of blistering in the medial and lateral aspects of the ankle. The erythema extends all the way to the medial aspect of the left groin. There is tenderness on palpation of the skin along this area. The foot is swollen. There is no lymphadenopathy. HEENT: Ocular movements conjugate. Sclerae white. Pupils are equal. Oral cavity normal except for the teeth. Numerous missing teeth. NECK: Supple. No jugular vein distention. LUNGS: Symmetric clear breath sounds. HEART: S1 and S2. Regular rate. No S3 or S4. ABDOMEN: Soft, not distended, or tender. No ascites. No bladder distention. EXTREMITIES: No joint inflammatory activity. Pulses are 2+ in dorsalis pedis. Cap refill is normal. NEURO: His cognitive function appears to be intact. LABORATORY DATA: White cell count 17.2, went down to 10 and now, it is up to 11.6. Hemoglobin 12.8, platelets 255. He had 49% bands on arrival, now they are down to 8%. He also had metamyelocytes and myelocytes. Chemistry with a sodium of 130 and now 136, potassium is down to 2.8, creatinine 0.82, alkaline phosphatase 196. CRP 25, albumin 2.5. Transaminases normal. Bilirubin 0.9. Microbiology: Two sets of blood cultures, no growth at 5 days, final results. A vascular ultrasound showed deep vein thrombosis in the common femoral, deep femoral, proximal and mid femoral veins as well as distal femoral popliteal and posterior tibial veins. ASSESSMENT: 1. New onset of quite extensive deep vein thrombosis, left lower extremity. 2. Neutrophilia with bandemia with possible associated cellulitis and blistering. DISCUSSION: Deep vein thrombosis is quite rare in cases of cellulitis in various series published in the literature. The frequency of concomitant DVT and cellulitis is less than 3%. The clinical manifestations of deep vein thrombosis and cellulitis overlap and frequently it is difficult to distinguish one from the other without further radiological evaluation. In this case, it is more likely that he has isolated deep vein thrombosis, but I cannot be sure because of the degree of bandemia on arrival. For now what I am going to recommend is switching him to IV Rocephin only and discontinue the remaining antimicrobials. Continue aggressive anticoagulation. The patient is at risk for postphlebitic syndrome, Phlegmasia dolens. There is a device that can help lyse those thrombi in the vein legs and decrease the risk of post phlebitic syndrome. He may be a candidate for this procedure, although they do not have this device in [facility] and any of the [facility]. Job ID: [id number]
[2018-07-04] MEDS: HYDROcodone/Acetaminophen 5/325 mg Tablet PO PRN ×3 (05:03→17:53)
[2018-07-04 06:19] LABS: Band 12 % (5-11); Eosinophils 1 % (0-10); Hemoglobin 13.6 g/dL (14.0-18.0); Lymphocytes 7 % (21-51); MDiff Complete? YES; Mean Corpuscular HGB CONC 33.5 g/dL (32.0-36.0); Mean Corpuscular Hemoglobin 31.7 pg (27.0-31.0); Mean Corpuscular Volume 94.6 fL (78.0-98.0); Mean Platelet Volume 7.4 fL (7.4-10.4); Metamyelocyte 3 % (0-0); Monocytes 11 % (0-10); Neutrophil 66 % (42-75); Platelet Count 264 thou/uL (130-400); Platelet Morphology Comment Appears Adequate; RBC Distribution Width 13.3 % (11.5-14.5); Red Blood Cell (RBC) Count 4.29 mill/uL (4.70-6.10); White Blood Cell (WBC) Count 13.8 thou/uL (4.8-10.8)
[2018-07-04 06:22] LABS: Anion Gap 12 mmol/L (10-20); BUN (Urea Nitrogen) 5 mg/dL (8.4-25.7); Calc. Creatinine Clearance 169 mL/min (70-130); Calcium 8.1 mg/dL (7.8-10.44); Carbon Dioxide 24 mmol/L (23-31); Chloride 102 mmol/L (98-107); Estimated GFR-MDRD Greater than 90; Glucose 88 mg/dL (80-115); Magnesium 1.5 mg/dL (1.6-2.6); Phosphorus 2.8 mg/dL (2.3-4.7); Potassium 3.5 mmol/L (3.5-5.1); Sodium 134 mmol/L (136-145)
[2018-07-04] MEDS ORDERED: Magnesium Sulfate 3 GM in Sodium Chloride 0.9% 100 ML IVPB SCH (07:00)
[2018-07-04] MEDS: FLUoxetine HCl 20 MG CAP PO SCH (08:41)
[2018-07-04] MEDS: Apixaban 5 MG TAB PO SCH ×2 (08:41→20:06)
[2018-07-04] MEDS: Famotidine 20 MG TAB PO SCH ×2 (08:41→20:06)
--- NOTE | 2018-07-04 10:28 | PDOC.PN ---
- Subjective Encounter Start Date: 07/04/18 Encounter Start Time: 10:05 Patient seen and examined. No new complaints. No overnight events - Objective Resuscitation Status - Order Detail: 06/28/18 13:15 Resuscitation Status Routine Resuscitation Status: FULL: Full Resuscitation MAR Reviewed: Yes Vital Signs & Weight: Vital Signs (12 hours) Temp Pulse Resp BP Pulse Ox 07/04/18 08:00 98.1 F 77 18 154/86 H 92 L Weight Admit Weight 194 lb 0.108 oz Weight 194 lb 0.108 oz I&O: 07/03/18 07/04/18 07/05/18 06:59 06:59 06:59 Intake Total 2069 1360 Output Total 1750 Balance 2070 -390 Result Diagrams: 07/04/18 04:46 07/04/18 04:46 Phys Exam - Physical Examination Constitutional: NAD HEENT: PERRLA, moist MMs, sclera anicteric Neck: no JVD, supple Respiratory: no wheezing, no rales, no rhonchi, clear to auscultation bilateral Cardiovascular: RRR, no significant murmur, no rub Gastrointestinal: soft, non-tender, no distention, positive bowel sounds left leg cellulitis with drainage Neurological: non-focal, normal sensation, moves all 4 limbs Lymphatic: no nodes Psychiatric: normal affect, A&O x 3 Skin: no rash, normal turgor Dx/Plan (1) Cellulitis of left leg Code(s): L03.116 - CELLULITIS OF LEFT LOWER LIMB Status: Acute (2) Deep vein thrombosis (DVT) of left lower extremity Code(s): I82.402 - ACUTE EMBOLISM AND THOMBOS UNSP DEEP VEINS OF L LOW EXTREM Status: Acute (3) Hyponatremia Code(s): E87.1 - HYPO-OSMOLALITY AND HYPONATREMIA Status: Acute (4) Lactic acidosis Code(s): E87.2 - ACIDOSIS Status: Acute (5) Anxiety and depression Code(s): F41.9 - ANXIETY DISORDER, UNSPECIFIED; F32.9 - MAJOR DEPRESSIVE DISORDER, SINGLE EPISODE, UNSPECIFIED Status: Chronic - Plan cont current plan of care, continue antibiotics * continue rocephin * still does not see improvement enough to discharge * medication reviewed as below * symptomatic treatment. Review of Systems - Review of Systems ENT: negative: Ear Pain, Ear Discharge, Nose Pain, Nose Discharge, Nose Congestion, Mouth Pain, Mouth Swelling, Throat Pain, Throat Swelling, Other Respiratory: negative: Cough, Dry, Shortness of Breath, Hemoptysis, SOB with Excertion, Pleuritic Pain, Sputum, Wheezing Cardiovascular: negative: chest pain, palpitations, orthopnea, paroxysmal nocturnal dyspnea, edema, light headedness, other Gastrointestinal: negative: Nausea, Vomiting, Abdominal Pain, Diarrhea, Constipation, Melena, Hematochezia, Other Genitourinary: negative: Dysuria, Frequency, Incontinence, Hematuria, Retention , Other Musculoskeletal: Leg Pain. negative: Neck Pain, Shoulder Pain, Arm Pain, Back Pain, Hand Pain, Foot Pain, Other - Medications/Allergies Allergies/Adverse Reactions: Allergies Allergy/AdvReac Type Severity Reaction Status Date / Time clonidine Allergy Unknown Verified 06/28/18 14:23 lisinopril Allergy Unknown Verified 06/28/18 14:18 Medications: Current Medications Acetaminophen (Tylenol) 1,000 mg PO Q6H PRN PRN Reason: Mild Pain (1-3) Hydrocodone Bitart/Acetaminophen ([place] 5/325) 1 tab PO Q4H PRN PRN Reason: Moderate Pain (4-6) Last Admin: 06/28/18 14:42 Dose: 1 tab Hydrocodone Bitart/Acetaminophen ([place] 5/325) 2 tab PO Q4H PRN PRN Reason: Severe Pain (7-10) Last Admin: 07/04/18 05:03 Dose: 2 tab Apixaban (Eliquis) 10 mg PO BID [facility] Last Admin: 07/04/18 08:41 Dose: 10 mg Artificial Tears (Liquitears 15ml Bottle) 2 drop EA EYE PRN PRN PRN Reason: Dry Eyes Bisacodyl (Dulcolax) 10 mg [place] DAILYPRN PRN PRN Reason: Constipation Famotidine (Pepcid) 20 mg PO BID [facility] Last Admin: 07/04/18 08:41 Dose: 20 mg Fluoxetine HCl (Prozac) 40 mg PO DAILY [facility] Last Admin: 07/04/18 08:41 Dose: 40 mg Guaifenesin (Robitussin Sf) 200 mg PO Q4H PRN PRN Reason: Cough Hydralazine HCl (Apresoline) 10 mg SLOW IVP Q4H PRN PRN Reason: SBP > 180 and HR < 70 Ceftriaxone Sodium 2 gm/ (Sodium Chloride) 100 mls @ 200 mls/hr IVPB Q24HR [facility] Last Admin: 07/03/18 18:28 Dose: 100 mls Loperamide HCl (Imodium) 2 mg PO PRN PRN PRN Reason: Diarrhea/Loose Stools Loratadine (Claritin) 10 mg PO DAILYPRN PRN PRN Reason: Sinus Symptoms Last Admin: 06/30/18 11:56 Dose: 10 mg Mineral Oil/White Petrolatum (Eucerin Cream) 0 gm TOP BIDPRN PRN PRN Reason: Dry Skin Ondansetron HCl (Zofran Odt) 4 mg PO Q6H PRN PRN Reason: Nausea/Vomiting Ondansetron HCl (Zofran) 4 mg IVP Q6H PRN PRN Reason: Nausea/Vomiting Senna/Docusate Sodium (Senokot S) 2 tab PO BID PRN PRN Reason: Constipation Last Admin: 07/03/18 20:48 Dose: 2 tab Sodium Chloride ([place] Nasal [place] 0.65%) 0 ml EA NARE QIDPRN PRN PRN Reason: Nasal Congestion Sodium Chloride (Flush - Normal Saline) 10 ml IVF Q12HR [facility] Last Admin: 07/04/18 08:42 Dose: 10 ml Sodium Chloride (Flush - Normal Saline) 10 ml IVF PRN PRN PRN Reason: Saline Flush Throat Lozenges (Cepastat Lozenges) 1 vikram PO Q2H PRN PRN Reason: Sore Throat Zolpidem Tartrate (Ambien) 5 mg PO HSPRN PRN PRN Reason: Insomnia
[2018-07-04] MEDS: cefTRIAXone\\ROCEPHIN 2 GM in Sodium Chloride 0.9% 100 ML IVPB SCH (17:46)
--- NOTE | 2018-07-04 18:07 | PRG ---
DATE OF SERVICE: 07/04/2018 SUBJECTIVE: Mr. Urena feels reduction in the swelling of the left leg, but still quite painful, particularly when he tries to get up. No vomiting. No dyspnea or chest pain. No abdominal pain. Voiding without difficulty. OBJECTIVE: VITAL SIGNS: He has been afebrile. BP 130/81. GENERAL: Awake, alert, and oriented. LUNGS: Clear. HEART: S1, S2. Regular rate. ABDOMEN: Soft, not distended. EXTREMITIES: Left leg still quite erythematous with swelling, but the swelling is progressively getting less. The area of blistering in the ankle, medial and lateral aspect. NEUROLOGIC: Nonfocal. LABORATORY DATA: White cell count went up to 13.8, hemoglobin 13.6, platelets 264, bands are 12%. Microbiology, no growth in blood cultures of 5 days. ASSESSMENT AND DISCUSSION: History of hypertension with quite extensive deep venous thrombosis of left lower extremity and possible associated cellulitis. The patient does not have any obvious risk factors for deep vein thrombosis and malignancy is not obvious, although, he may need imaging studies of chest, abdomen, and pelvis. In the meantime, continue current antimicrobial, Rocephin, and anticoagulation. Job ID: [id number]
[2018-07-04] MEDS: Senokot S 8.6-50 MG TAB PO PRN (20:09)
[2018-07-05] MEDS: HYDROcodone/Acetaminophen 5/325 mg Tablet PO PRN ×5 (00:09→23:57)
[2018-07-05] MEDS: Famotidine 20 MG TAB PO SCH ×2 (08:01→20:59)
[2018-07-05] MEDS: FLUoxetine HCl 20 MG CAP PO SCH (08:01)
[2018-07-05] MEDS: Apixaban 5 MG TAB PO SCH ×2 (08:05→20:59)
[2018-07-05 08:14] LABS: #Basophils 0.1 thou/uL (0.0-0.2); #Eosinphils 0.1 thou/uL (0.0-0.7); #Lymphocytes 1.3 thou/uL (1.20-3.40); #Monocytes 1.5 thou/uL (0.11-0.59); #Neutrophils 10.9 thou/uL (1.40-6.50); %Basophils 0.5 % (0.0-1.0); %Eosinophils 0.6 % (0.0-10.0); %Lymphocytes 9.5 % (21.0-51.0); %Monocytes 10.9 % (0.0-10.0); %Neutrophils 78.5 % (42.0-75.0); Hemoglobin 13.2 g/dL (14.0-18.0); Mean Corpuscular HGB CONC 33.1 g/dL (32.0-36.0); Mean Corpuscular Hemoglobin 31.2 pg (27.0-31.0); Mean Corpuscular Volume 94.3 fL (78.0-98.0); Platelet Count 335 thou/uL (130-400); RBC Distribution Width 13.3 % (11.5-14.5); Red Blood Cell (RBC) Count 4.23 mill/uL (4.70-6.10); White Blood Cell (WBC) Count 13.9 thou/uL (4.8-10.8)
[2018-07-05 08:36] LABS: Anion Gap 10 mmol/L (10-20); BUN (Urea Nitrogen) 4 mg/dL (8.4-25.7); Calc. Creatinine Clearance 169 mL/min (70-130); Carbon Dioxide 24 mmol/L (23-31); Chloride 102 mmol/L (98-107); Estimated GFR-MDRD Greater than 90; Glucose 99 mg/dL (80-115); Magnesium 1.5 mg/dL (1.6-2.6); Potassium 3.8 mmol/L (3.5-5.1); Sodium 132 mmol/L (136-145)
[2018-07-05] MEDS ORDERED: Magnesium Sulfate 3 GM in Sodium Chloride 0.9% 100 ML IVPB SCH (10:45)
--- NOTE | 2018-07-05 11:02 | PDOC.PN ---
- Subjective Encounter Start Date: 07/05/18 Encounter Start Time: 09:50 Patient seen and examined. No new complaints. No overnight events - Objective Resuscitation Status - Order Detail: 06/28/18 13:15 Resuscitation Status Routine Resuscitation Status: FULL: Full Resuscitation MAR Reviewed: Yes Vital Signs & Weight: Vital Signs (12 hours) Temp Pulse Resp BP Pulse Ox 07/05/18 08:00 99 07/05/18 07:55 98.1 F 77 18 127/77 95 07/05/18 04:00 18 07/05/18 00:00 97.7 F 79 18 150/86 H 97 Weight Admit Weight 194 lb 0.108 oz Weight 194 lb 0.108 oz I&O: 07/04/18 07/05/18 07/06/18 06:59 06:59 06:59 Intake Total 1360 610 240 Output Total 1750 1200 Balance -390 -590 240 Result Diagrams: 07/05/18 08:06 07/05/18 08:06 Phys Exam - Physical Examination Constitutional: NAD HEENT: PERRLA, moist MMs, sclera anicteric Neck: no JVD, supple Respiratory: no wheezing, no rales, no rhonchi Cardiovascular: RRR, no significant murmur, no rub Gastrointestinal: soft, non-tender, no distention, positive bowel sounds left leg swelling reducing but has serous oozing Neurological: non-focal, normal sensation, moves all 4 limbs Lymphatic: no nodes Psychiatric: normal affect, A&O x 3 Skin: no rash, normal turgor Dx/Plan (1) Cellulitis of left leg Code(s): L03.116 - CELLULITIS OF LEFT LOWER LIMB Status: Acute (2) Deep vein thrombosis (DVT) of left lower extremity Code(s): I82.402 - ACUTE EMBOLISM AND THOMBOS UNSP DEEP VEINS OF L LOW EXTREM Status: Acute (3) Hyponatremia Code(s): E87.1 - HYPO-OSMOLALITY AND HYPONATREMIA Status: Acute (4) Lactic acidosis Code(s): E87.2 - ACIDOSIS Status: Acute (5) Anxiety and depression Code(s): F41.9 - ANXIETY DISORDER, UNSPECIFIED; F32.9 - MAJOR DEPRESSIVE DISORDER, SINGLE EPISODE, UNSPECIFIED Status: Chronic - Plan cont current plan of care, continue antibiotics * reduce elliquis to 5 mg po bid * continue rocephin * wound care * medication reviewed as below * symptomatic treatment. Review of Systems - Review of Systems ENT: negative: Ear Pain, Ear Discharge, Nose Pain, Nose Discharge, Nose Congestion, Mouth Pain, Mouth Swelling, Throat Pain, Throat Swelling, Other Respiratory: negative: Cough, Dry, Shortness of Breath, Hemoptysis, SOB with Excertion, Pleuritic Pain, Sputum, Wheezing Cardiovascular: negative: chest pain, palpitations, orthopnea, paroxysmal nocturnal dyspnea, edema, light headedness, other Gastrointestinal: negative: Nausea, Vomiting, Abdominal Pain, Diarrhea, Constipation, Melena, Hematochezia, Other Genitourinary: negative: Dysuria, Frequency, Incontinence, Hematuria, Retention , Other Musculoskeletal: Leg Pain. negative: Neck Pain, Shoulder Pain, Arm Pain, Back Pain, Hand Pain, Foot Pain, Other Skin: negative: Rash, Lesions, Abiodun, Bruising, Other - Medications/Allergies Allergies/Adverse Reactions: Allergies Allergy/AdvReac Type Severity Reaction Status Date / Time clonidine Allergy Unknown Verified 06/28/18 14:23 lisinopril Allergy Unknown Verified 06/28/18 14:18 Medications: Current Medications Acetaminophen (Tylenol) 1,000 mg PO Q6H PRN PRN Reason: Mild Pain (1-3) Hydrocodone Bitart/Acetaminophen ([place] 5/325) 1 tab PO Q4H PRN PRN Reason: Moderate Pain (4-6) Last Admin: 06/28/18 14:42 Dose: 1 tab Hydrocodone Bitart/Acetaminophen ([place] 5/325) 2 tab PO Q4H PRN PRN Reason: Severe Pain (7-10) Last Admin: 07/05/18 06:10 Dose: 2 tab Apixaban (Eliquis) 5 mg PO BID [facility] Last Admin: 07/05/18 08:05 Dose: 5 mg Artificial Tears (Liquitears 15ml Bottle) 2 drop EA EYE PRN PRN PRN Reason: Dry Eyes Bisacodyl (Dulcolax) 10 mg [place] DAILYPRN PRN PRN Reason: Constipation Famotidine (Pepcid) 20 mg PO BID [facility] Last Admin: 07/05/18 08:01 Dose: 20 mg Fluoxetine HCl (Prozac) 40 mg PO DAILY [facility] Last Admin: 07/05/18 08:01 Dose: 40 mg Guaifenesin (Robitussin Sf) 200 mg PO Q4H PRN PRN Reason: Cough Hydralazine HCl (Apresoline) 10 mg SLOW IVP Q4H PRN PRN Reason: SBP > 180 and HR < 70 Ceftriaxone Sodium 2 gm/ (Sodium Chloride) 100 mls @ 200 mls/hr IVPB Q24HR [facility] Last Admin: 07/04/18 17:46 Dose: 100 mls Magnesium Sulfate 3 gm/ Sodium (Chloride) 106 mls @ 100 mls/hr IVPB NOW [facility] Stop: 07/05/18 12:45 Loperamide HCl (Imodium) 2 mg PO PRN PRN PRN Reason: Diarrhea/Loose Stools Loratadine (Claritin) 10 mg PO DAILYPRN PRN PRN Reason: Sinus Symptoms Last Admin: 06/30/18 11:56 Dose: 10 mg Mineral Oil/White Petrolatum (Eucerin Cream) 0 gm TOP BIDPRN PRN PRN Reason: Dry Skin Ondansetron HCl (Zofran Odt) 4 mg PO Q6H PRN PRN Reason: Nausea/Vomiting Ondansetron HCl (Zofran) 4 mg IVP Q6H PRN PRN Reason: Nausea/Vomiting Senna/Docusate Sodium (Senokot S) 2 tab PO BID PRN PRN Reason: Constipation Last Admin: 07/04/18 20:09 Dose: 2 tab Sodium Chloride ([place] Nasal [place] 0.65%) 0 ml EA NARE QIDPRN PRN PRN Reason: Nasal Congestion Sodium Chloride (Flush - Normal Saline) 10 ml IVF Q12HR [facility] Last Admin: 07/05/18 08:02 Dose: 10 ml Sodium Chloride (Flush - Normal Saline) 10 ml IVF PRN PRN PRN Reason: Saline Flush Throat Lozenges (Cepastat Lozenges) 1 vikram PO Q2H PRN PRN Reason: Sore Throat Zolpidem Tartrate (Ambien) 5 mg PO HSPRN PRN PRN Reason: Insomnia
--- NOTE | 2018-07-05 13:36 | PRG ---
DATE OF SERVICE: 07/05/2018 SUBJECTIVE: He was able to have a bowel movement today, which was formed. No headaches. No shortness of breath or chest pain. No cough. No abdominal pain or diarrhea. Voiding without difficulty. Left leg is slowly improving. PHYSICAL EXAMINATION: VITAL SIGNS: T-max 98.5, blood pressure 120/70, pulse 77, respirations 18, and O2 saturation 99%. EXTREMITIES: Left leg, reducing size is steadily. The erythema is about the same, but not as bright. Less tenderness. LUNGS: Clear. HEART: S1 and S2 regular rate. ABDOMEN: Soft. Not distended or tender. : No bladder distention. LABORATORY DATA: WBC is up to 13.9, hemoglobin 13, platelets 335, 78% neutrophils, which is down from previous value. Chemistries not remarkable. ASSESSMENT AND DISCUSSION: Hypertension and extensive left lower extremity deep vein thrombosis involving multiple deep veins in the patient, who did not have obvious risk factors for deep vein thrombosis. The superimposed cellulitis is a concern and we will continue Jen. Job ID: [id number]
[2018-07-05] MEDS: cefTRIAXone\\ROCEPHIN 2 GM in Sodium Chloride 0.9% 100 ML IVPB SCH (17:33)
[2018-07-05] MEDS: Senokot S 8.6-50 MG TAB PO PRN (21:07)
[2018-07-06] MEDS: HYDROcodone/Acetaminophen 5/325 mg Tablet PO PRN ×3 (06:04→21:29)
[2018-07-06] MEDS: Apixaban 5 MG TAB PO SCH ×2 (08:19→20:55)
[2018-07-06] MEDS: FLUoxetine HCl 20 MG CAP PO SCH (08:19)
[2018-07-06] MEDS: Famotidine 20 MG TAB PO SCH ×2 (08:19→20:55)
--- NOTE | 2018-07-06 10:37 | PDOC.PN ---
- Subjective Encounter Start Date: 07/06/18 Encounter Start Time: 09:30 Patient seen and examined. No new complaints. No overnight events - Objective Resuscitation Status - Order Detail: 06/28/18 13:15 Resuscitation Status Routine Resuscitation Status: FULL: Full Resuscitation MAR Reviewed: Yes Vital Signs & Weight: Vital Signs (12 hours) Temp Pulse Resp BP Pulse Ox 07/06/18 08:00 98.1 F 74 20 145/85 H 99 07/06/18 05:30 98 F 78 18 154/94 H 96 07/05/18 23:47 17 Weight Admit Weight 194 lb 0.108 oz Weight 194 lb 0.108 oz I&O: 07/05/18 07/06/18 07/07/18 06:59 06:59 06:59 Intake Total 610 2040 360 Output Total 1200 2500 Balance -590 -460 360 Result Diagrams: 07/05/18 08:06 07/05/18 08:06 Phys Exam - Physical Examination Constitutional: NAD HEENT: PERRLA, moist MMs, sclera anicteric Neck: no JVD, supple Respiratory: no wheezing, no rales, no rhonchi Cardiovascular: RRR, no significant murmur, no rub Gastrointestinal: soft, non-tender, no distention, positive bowel sounds erythema, swelling, draianage over left leg Neurological: non-focal, normal sensation, moves all 4 limbs Lymphatic: no nodes Psychiatric: normal affect, A&O x 3 Skin: normal turgor Dx/Plan (1) Cellulitis of left leg Code(s): L03.116 - CELLULITIS OF LEFT LOWER LIMB Status: Acute (2) Deep vein thrombosis (DVT) of left lower extremity Code(s): I82.402 - ACUTE EMBOLISM AND THOMBOS UNSP DEEP VEINS OF L LOW EXTREM Status: Acute (3) Hyponatremia Code(s): E87.1 - HYPO-OSMOLALITY AND HYPONATREMIA Status: Acute (4) Lactic acidosis Code(s): E87.2 - ACIDOSIS Status: Acute (5) Anxiety and depression Code(s): F41.9 - ANXIETY DISORDER, UNSPECIFIED; F32.9 - MAJOR DEPRESSIVE DISORDER, SINGLE EPISODE, UNSPECIFIED Status: Chronic (6) Hypokalemia Code(s): E87.6 - HYPOKALEMIA Status: Acute (7) Hypomagnesemia Code(s): E83.42 - HYPOMAGNESEMIA Status: Acute (8) Hypophosphatemia Code(s): E83.39 - OTHER DISORDERS OF PHOSPHORUS METABOLISM Status: Acute - Plan cont current plan of care, continue antibiotics * continue rocephin * repeat labs tomorrow * medication reviewed as below * symptomatic treatment * continue elliquis * wound care. Review of Systems - Review of Systems ENT: negative: Ear Pain, Ear Discharge, Nose Pain, Nose Discharge, Nose Congestion, Mouth Pain, Mouth Swelling, Throat Pain, Throat Swelling, Other Respiratory: negative: Cough, Dry, Shortness of Breath, Hemoptysis, SOB with Excertion, Pleuritic Pain, Sputum, Wheezing Cardiovascular: negative: chest pain, palpitations, orthopnea, paroxysmal nocturnal dyspnea, edema, light headedness, other Gastrointestinal: negative: Nausea, Vomiting, Abdominal Pain, Diarrhea, Constipation, Melena, Hematochezia, Other Genitourinary: negative: Dysuria, Frequency, Incontinence, Hematuria, Retention , Other Musculoskeletal: Leg Pain. negative: Neck Pain, Shoulder Pain, Arm Pain, Back Pain, Hand Pain, Foot Pain, Other - Medications/Allergies Allergies/Adverse Reactions: Allergies Allergy/AdvReac Type Severity Reaction Status Date / Time clonidine Allergy Unknown Verified 06/28/18 14:23 lisinopril Allergy Unknown Verified 06/28/18 14:18 Medications: Current Medications Acetaminophen (Tylenol) 1,000 mg PO Q6H PRN PRN Reason: Mild Pain (1-3) Hydrocodone Bitart/Acetaminophen ([place] 5/325) 1 tab PO Q4H PRN PRN Reason: Moderate Pain (4-6) Last Admin: 06/28/18 14:42 Dose: 1 tab Hydrocodone Bitart/Acetaminophen ([place] 5/325) 2 tab PO Q4H PRN PRN Reason: Severe Pain (7-10) Last Admin: 07/06/18 06:04 Dose: 2 tab Apixaban (Eliquis) 5 mg PO BID [facility] Last Admin: 07/06/18 08:19 Dose: 5 mg Artificial Tears (Liquitears 15ml Bottle) 2 drop EA EYE PRN PRN PRN Reason: Dry Eyes Bisacodyl (Dulcolax) 10 mg [place] DAILYPRN PRN PRN Reason: Constipation Last Admin: 07/05/18 12:04 Dose: 10 mg Famotidine (Pepcid) 20 mg PO BID [facility] Last Admin: 07/06/18 08:19 Dose: 20 mg Fluoxetine HCl (Prozac) 40 mg PO DAILY [facility] Last Admin: 07/06/18 08:19 Dose: 40 mg Guaifenesin (Robitussin Sf) 200 mg PO Q4H PRN PRN Reason: Cough Hydralazine HCl (Apresoline) 10 mg SLOW IVP Q4H PRN PRN Reason: SBP > 180 and HR < 70 Ceftriaxone Sodium 2 gm/ (Sodium Chloride) 100 mls @ 200 mls/hr IVPB Q24HR [facility] Last Admin: 07/05/18 17:33 Dose: 100 mls Loperamide HCl (Imodium) 2 mg PO PRN PRN PRN Reason: Diarrhea/Loose Stools Loratadine (Claritin) 10 mg PO DAILYPRN PRN PRN Reason: Sinus Symptoms Last Admin: 06/30/18 11:56 Dose: 10 mg Mineral Oil/White Petrolatum (Eucerin Cream) 0 gm TOP BIDPRN PRN PRN Reason: Dry Skin Ondansetron HCl (Zofran Odt) 4 mg PO Q6H PRN PRN Reason: Nausea/Vomiting Ondansetron HCl (Zofran) 4 mg IVP Q6H PRN PRN Reason: Nausea/Vomiting Senna/Docusate Sodium (Senokot S) 2 tab PO BID PRN PRN Reason: Constipation Last Admin: 07/05/18 21:07 Dose: 2 tab Sodium Chloride ([place] Nasal [place] 0.65%) 0 ml EA NARE QIDPRN PRN PRN Reason: Nasal Congestion Sodium Chloride (Flush - Normal Saline) 10 ml IVF Q12HR [facility] Last Admin: 07/06/18 08:19 Dose: 10 ml Sodium Chloride (Flush - Normal Saline) 10 ml IVF PRN PRN PRN Reason: Saline Flush Throat Lozenges (Cepastat Lozenges) 1 vikram PO Q2H PRN PRN Reason: Sore Throat Zolpidem Tartrate (Ambien) 5 mg PO HSPRN PRN PRN Reason: Insomnia
[2018-07-06] MEDS: cefTRIAXone\\ROCEPHIN 2 GM in Sodium Chloride 0.9% 100 ML IVPB SCH (17:10)
[2018-07-06] MEDS: Loratadine 10 MG TAB PO PRN (21:29)
[2018-07-07] MEDS: HYDROcodone/Acetaminophen 5/325 mg Tablet PO PRN ×5 (03:02→22:19)
[2018-07-07 04:32] LABS: INR-International Normal Ratio 1.2; PTT 37.9 SEC (22.9-36.1); Prothrombin Time 14.8 SEC (12.0-14.7)
[2018-07-07 04:48] LABS: Anion Gap 11 mmol/L (10-20); BUN (Urea Nitrogen) 5 mg/dL (8.4-25.7); CRP (Inflammatory) 11.44 mg/dL (= or < 0.5); Calc. Creatinine Clearance 169 mL/min (70-130); Calcium 8.4 mg/dL (7.8-10.44); Carbon Dioxide 23 mmol/L (23-31); Chloride 102 mmol/L (98-107); Estimated GFR-MDRD Greater than 90; Glucose 105 mg/dL (80-115); Magnesium 1.4 mg/dL (1.6-2.6); Potassium 3.8 mmol/L (3.5-5.1); Sodium 132 mmol/L (136-145)
[2018-07-07 04:56] LABS: Band 4 % (5-11); Hemoglobin 12.6 g/dL (14.0-18.0); Lymphocytes 15 % (21-51); MDiff Complete? YES; Mean Corpuscular Hemoglobin 31.7 pg (27.0-31.0); Mean Corpuscular Volume 93.2 fL (78.0-98.0); Monocytes 14 % (0-10); Neutrophil 67 % (42-75); Platelet Count 392 thou/uL (130-400); Platelet Morphology Comment Appears Adequate; RBC Distribution Width 12.9 % (11.5-14.5); Red Blood Cell (RBC) Count 3.97 mill/uL (4.70-6.10); White Blood Cell (WBC) Count 10.8 thou/uL (4.8-10.8)
[2018-07-07] MEDS: Apixaban 5 MG TAB PO SCH ×2 (07:58→20:02)
[2018-07-07] MEDS: Famotidine 20 MG TAB PO SCH ×2 (07:58→20:02)
[2018-07-07] MEDS: FLUoxetine HCl 20 MG CAP PO SCH (07:58)
--- NOTE | 2018-07-07 11:17 | PDOC.PN ---
- Subjective Encounter Start Date: 07/07/18 Encounter Start Time: 11:06 Subjective: still has pain left leg - Objective Resuscitation Status - Order Detail: 06/28/18 13:15 Resuscitation Status Routine Resuscitation Status: FULL: Full Resuscitation MAR Reviewed: Yes Vital Signs & Weight: Vital Signs (12 hours) Temp Pulse Resp BP Pulse Ox 07/07/18 07:37 98.2 F 74 18 129/76 94 L 07/07/18 04:00 98.1 F 81 18 130/78 95 07/07/18 00:00 97.9 F 80 16 134/89 96 Weight Admit Weight 194 lb 0.108 oz Weight 194 lb 0.108 oz I&O: 07/06/18 07/07/18 07/08/18 06:59 06:59 06:59 Intake Total 2040 1080 Output Total 2500 Balance -460 1080 Result Diagrams: 07/07/18 03:48 07/07/18 03:48 Phys Exam - Physical Examination Neck: no JVD Respiratory: clear to auscultation bilateral Cardiovascular: RRR, no significant murmur Gastrointestinal: soft, non-tender, positive bowel sounds bandaged LL leg Dx/Plan (1) Cellulitis of left leg Code(s): L03.116 - CELLULITIS OF LEFT LOWER LIMB Status: Acute (2) Deep vein thrombosis (DVT) of left lower extremity Code(s): I82.402 - ACUTE EMBOLISM AND THOMBOS UNSP DEEP VEINS OF L LOW EXTREM Status: Acute Qualifiers: Affected thrombotic vein of extremity: femoral Chronicity: acute Qualified Code(s): I82.412 - Acute embolism and thrombosis of left femoral vein (3) Hyponatremia Code(s): E87.1 - HYPO-OSMOLALITY AND HYPONATREMIA Status: Acute (4) Hypophosphatemia Code(s): E83.39 - OTHER DISORDERS OF PHOSPHORUS METABOLISM Status: Acute (5) Lactic acidosis Code(s): E87.2 - ACIDOSIS Status: Acute - Plan cont po eliquis -: cont iv rocephin, wound care * .
[2018-07-07] MEDS: Senokot S 8.6-50 MG TAB PO PRN (13:24)
[2018-07-07] MEDS: cefTRIAXone\\ROCEPHIN 2 GM in Sodium Chloride 0.9% 100 ML IVPB SCH (17:21)
[2018-07-08] MEDS: HYDROcodone/Acetaminophen 5/325 mg Tablet PO PRN ×4 (03:08→21:19)
[2018-07-08] MEDS: Famotidine 20 MG TAB PO SCH ×2 (09:04→20:09)
[2018-07-08] MEDS: FLUoxetine HCl 20 MG CAP PO SCH (09:04)
[2018-07-08] MEDS: Apixaban 5 MG TAB PO SCH ×2 (09:04→20:09)
[2018-07-08] MEDS: Senokot S 8.6-50 MG TAB PO PRN ×2 (09:12→21:20)
--- NOTE | 2018-07-08 13:39 | PDOC.PN ---
- Subjective Encounter Start Date: 07/08/18 Encounter Start Time: 15:30 Subjective: Patient reports some improvement in LLE swelling and redness, got up -: with PT. No fever. Still some pain from DVT in left thigh. - Objective Resuscitation Status - Order Detail: 06/28/18 13:15 Resuscitation Status Routine Resuscitation Status: FULL: Full Resuscitation MAR Reviewed: Yes Vital Signs & Weight: Vital Signs (12 hours) Temp Pulse Resp BP BP Pulse Ox 07/08/18 07:59 98.4 F 75 20 134/84 95 07/08/18 05:38 98.0 F 77 18 124/77 95 Weight Admit Weight 194 lb 0.108 oz Weight 194 lb 0.108 oz I&O: 07/07/18 07/08/18 07/09/18 06:59 06:59 06:59 Intake Total 1080 3820 480 Output Total 3200 1650 Balance 1080 620 1170 Result Diagrams: 07/07/18 03:48 07/07/18 03:48 Phys Exam - Physical Examination Constitutional: NAD HEENT: moist MMs Respiratory: no wheezing, no rales, no rhonchi, clear to auscultation bilateral Cardiovascular: RRR, no significant murmur Gastrointestinal: soft, non-tender, positive bowel sounds LLE with 3+ edema to thigh, cellulitis retreating from marked line Neurological: non-focal Psychiatric: normal affect, A&O x 3 Dx/Plan (1) Cellulitis of left leg Code(s): L03.116 - CELLULITIS OF LEFT LOWER LIMB Status: Acute Comment: on Rocephin (2) Deep vein thrombosis (DVT) of left lower extremity Code(s): I82.402 - ACUTE EMBOLISM AND THOMBOS UNSP DEEP VEINS OF L LOW EXTREM Status: Acute Qualifiers: Affected thrombotic vein of extremity: femoral Chronicity: acute Qualified Code(s): I82.412 - Acute embolism and thrombosis of left femoral vein Comment: on Elliquis, encourage ambulation (3) Hyponatremia Code(s): E87.1 - HYPO-OSMOLALITY AND HYPONATREMIA Status: Acute Comment: mild, stable (4) Depression Code(s): F32.9 - MAJOR DEPRESSIVE DISORDER, SINGLE EPISODE, UNSPECIFIED Status : Chronic Qualifiers: Depression Type: major depressive disorder Comment: continuing Fluoxetine - Plan cont current plan of care, continue antibiotics, PT/OT change to oral antibiotics when indicated by Dr. Mak -: will need at least 14 day course total, possibly prophylactic after -: that * . - Discharge Day Encounter end time: 15:40
[2018-07-08] MEDS ORDERED: HYDROcodone/Acetaminophen 5/325 mg Tablet PO PRN (15:47)
[2018-07-08] MEDS: cefTRIAXone\\ROCEPHIN 2 GM in Sodium Chloride 0.9% 100 ML IVPB SCH (17:07)
[2018-07-09] MEDS: HYDROcodone/Acetaminophen 5/325 mg Tablet PO PRN ×3 (01:26→14:08)
[2018-07-09 08:37] LABS: Anion Gap 11 mmol/L (10-20); BUN (Urea Nitrogen) 9 mg/dL (8.4-25.7); Calc. Creatinine Clearance 121 mL/min (70-130); Calcium 8.9 mg/dL (7.8-10.44); Carbon Dioxide 28 mmol/L (23-31); Chloride 99 mmol/L (98-107); Estimated GFR-MDRD Greater than 90; Glucose 81 mg/dL (80-115); Sodium 134 mmol/L (136-145)
[2018-07-09] MEDS: Famotidine 20 MG TAB PO SCH ×2 (09:24→19:55)
[2018-07-09] MEDS: FLUoxetine HCl 20 MG CAP PO SCH (09:24)
[2018-07-09] MEDS: Apixaban 5 MG TAB PO SCH ×2 (09:24→19:55)
--- NOTE | 2018-07-09 10:57 | PDOC.PN ---
- Subjective Encounter Start Date: 07/09/18 Encounter Start Time: 13:10 Subjective: Patient with improvement in pain and edema of LLE. No fever. -: Starting to ambulate a bit. - Objective Resuscitation Status - Order Detail: 06/28/18 13:15 Resuscitation Status Routine Resuscitation Status: FULL: Full Resuscitation MAR Reviewed: Yes Vital Signs & Weight: Vital Signs (12 hours) Temp Pulse Resp BP Pulse Ox 07/09/18 07:45 97.8 F 85 16 117/71 97 Weight Admit Weight 194 lb 0.108 oz Weight 194 lb 0.108 oz I&O: 07/08/18 07/09/18 07/10/18 06:59 06:59 06:59 Intake Total 3820 720 240 Output Total 3200 1800 Balance 620 -1080 240 Result Diagrams: 07/07/18 03:48 07/09/18 07:49 Phys Exam - Physical Examination Constitutional: NAD HEENT: moist MMs Respiratory: no wheezing, no rales, no rhonchi Cardiovascular: RRR, no significant murmur Gastrointestinal: soft, positive bowel sounds LLE with significant edema below thigh, redness continues to improve some Neurological: non-focal Psychiatric: normal affect, A&O x 3 Dx/Plan (1) Cellulitis of left leg Code(s): L03.116 - CELLULITIS OF LEFT LOWER LIMB Status: Acute Comment: on Rocephin, will switch to Keflex and complete 14 days of antibiotics, no need for prophylaxis after that per Dr. Mak as this is a first episode (2) Deep vein thrombosis (DVT) of left lower extremity Code(s): I82.402 - ACUTE EMBOLISM AND THOMBOS UNSP DEEP VEINS OF L LOW EXTREM Status: Acute Qualifiers: Affected thrombotic vein of extremity: femoral Chronicity: acute Qualified Code(s): I82.412 - Acute embolism and thrombosis of left femoral vein Comment: on Elliquis, encourage ambulation (3) Hyponatremia Code(s): E87.1 - HYPO-OSMOLALITY AND HYPONATREMIA Status: Acute Comment: mild, stable (4) Depression Code(s): F32.9 - MAJOR DEPRESSIVE DISORDER, SINGLE EPISODE, UNSPECIFIED Status : Chronic Qualifiers: Depression Type: major depressive disorder Comment: continuing Fluoxetine - Plan cont current plan of care, continue antibiotics, PT/OT will set up home health for PT/OT but unfunded, can likely go home tomorrow * . - Discharge Day Encounter end time: 13:20
[2018-07-09] MEDS: Cephalexin 250 MG CAP PO SCH ×2 (17:13→23:12)
--- NOTE | 2018-07-09 18:26 | PRG ---
DATE OF SERVICE: 07/09/2018 SUBJECTIVE: Still improving slowly. Still with [id number] pain in the left lower extremity and has noticed still profuse or moderate to significant drainage in the medial aspect of ulceration area. No vomiting or diarrhea. OBJECTIVE: VITAL SIGNS: He has been afebrile. Other vital signs are normal. GENERAL: Awake, alert, and oriented. LUNGS: Clear. HEART: S1, S2, regular rate. ABDOMEN: Soft and not distended. EXTREMITIES: Left leg still with moderate erythema still extending all the way to the area below the knee and the medial aspect of the left thigh. It does not appear to be as prominent as previously. Still quite a bit of swelling. LABORATORY DATA: The white cell count is at 10.8, hemoglobin 12.6, and platelets 392. Sodium 134 and creatinine 0.77. Blood culture, no growth. ASSESSMENT AND DISCUSSION: Hypertension and extensive left lower extremity deep vein thrombosis involving multiple deep veins in the left lower extremity. The patient without a risk factor for deep venous thrombosis in the past. 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 We will have to continue antimicrobials, eventually transition to oral Keflex for discharge planning, and keep him on a suppressive dose of penicillin 250 mg twice daily. Sometimes Eliquis fails in the resolution of the thrombus and may have to switch him to heparin or Lovenox in combination with warfarin. Also, the patient has some financial issues in terms of affordability of the anticoagulant and this will be a significant concern. Job ID: [id number]
[2018-07-09] MEDS: Acetaminophen 500 MG TAB PO PRN (19:56)
[2018-07-09] MEDS: Senokot S 8.6-50 MG TAB PO PRN (19:56)
[2018-07-10] MEDS: Acetaminophen 500 MG TAB PO PRN ×4 (03:32→21:05)
[2018-07-10] MEDS: Cephalexin 250 MG CAP PO SCH ×4 (05:20→23:20)
[2018-07-10] MEDS: Apixaban 5 MG TAB PO SCH ×2 (08:28→21:05)
[2018-07-10] MEDS: Famotidine 20 MG TAB PO SCH ×2 (08:28→21:05)
[2018-07-10] MEDS: FLUoxetine HCl 20 MG CAP PO SCH (08:28)
--- NOTE | 2018-07-10 12:06 | PDOC.PN ---
- Subjective Encounter Start Date: 07/10/18 Encounter Start Time: 12:10 Subjective: Patient slowly improving. Ambulating better. No fever. - Objective Resuscitation Status - Order Detail: 06/28/18 13:15 Resuscitation Status Routine Resuscitation Status: FULL: Full Resuscitation MAR Reviewed: Yes Vital Signs & Weight: Vital Signs (12 hours) Temp Pulse Resp BP Pulse Ox 07/10/18 08:00 97.6 F 85 16 134/84 97 Weight Admit Weight 194 lb 0.108 oz Weight 194 lb 0.108 oz I&O: 07/09/18 07/10/18 07/11/18 06:59 06:59 06:59 Intake Total 720 2540 240 Output Total 1800 3300 Balance -1080 -760 240 Result Diagrams: 07/07/18 03:48 07/09/18 07:49 Phys Exam - Physical Examination Constitutional: NAD HEENT: moist MMs Respiratory: no wheezing, no rales, no rhonchi Cardiovascular: RRR Gastrointestinal: soft, positive bowel sounds Musculoskeletal: edema present LLE with sign edema, redness resolving into bruise so suspect more the clot than cellulitis Neurological: non-focal, moves all 4 limbs Psychiatric: normal affect, A&O x 3 Dx/Plan (1) Cellulitis of left leg Code(s): L03.116 - CELLULITIS OF LEFT LOWER LIMB Status: Acute Comment: on Rocephin, will switch to Keflex and complete 14 days of antibiotics, Dr. Mak now considering suppressive therapy with PCN afterward (2) Deep vein thrombosis (DVT) of left lower extremity Code(s): I82.402 - ACUTE EMBOLISM AND THOMBOS UNSP DEEP VEINS OF L LOW EXTREM Status: Acute Qualifiers: Affected thrombotic vein of extremity: femoral Chronicity: acute Qualified Code(s): I82.412 - Acute embolism and thrombosis of left femoral vein Comment: on Elliquis, encourage ambulation (3) Hyponatremia Code(s): E87.1 - HYPO-OSMOLALITY AND HYPONATREMIA Status: Acute Comment: mild, stable (4) Depression Code(s): F32.9 - MAJOR DEPRESSIVE DISORDER, SINGLE EPISODE, UNSPECIFIED Status : Chronic Qualifiers: Depression Type: major depressive disorder Comment: continuing Fluoxetine - Plan cont current plan of care Discussed with Dr. Mak, he is concerned about the extent of the clot, -: recommends close observation in case of Eliquis failure, concerned that -: patient will not be able to work for awhile, will watch one more day in the -: hospital * . - Discharge Day Encounter end time: 12:30
[2018-07-11] MEDS: Acetaminophen 500 MG TAB PO PRN ×2 (03:35→08:12)
[2018-07-11] MEDS: Cephalexin 250 MG CAP PO SCH ×2 (05:54→13:12)
[2018-07-11 07:56] VITALS: BP 147/86; TEMP 97.9
[2018-07-11] MEDS: Apixaban 5 MG TAB PO SCH (08:09)
[2018-07-11] MEDS: FLUoxetine HCl 20 MG CAP PO SCH (08:09)
[2018-07-11] MEDS: Famotidine 20 MG TAB PO SCH (08:09)
--- NOTE | 2018-07-11 12:25 | PDOC.PN ---
- Subjective Encounter Start Date: 07/11/18 Encounter Start Time: 12:00 Subjective: Patient improving. Ulcer still draining. No fever. Ambulating with walker. - Objective Resuscitation Status - Order Detail: 06/28/18 13:15 Resuscitation Status Routine Resuscitation Status: FULL: Full Resuscitation MAR Reviewed: Yes Vital Signs & Weight: Vital Signs (12 hours) Temp Pulse Resp BP Pulse Ox 07/11/18 07:55 97.9 F 80 20 147/86 H 98 Weight Admit Weight 194 lb 0.108 oz Weight 194 lb 0.108 oz I&O: 07/10/18 07/11/18 07/12/18 06:59 06:59 06:59 Intake Total 2540 2080 Output Total 3300 1500 Balance -760 580 Result Diagrams: 07/07/18 03:48 07/09/18 07:49 Phys Exam - Physical Examination Constitutional: NAD HEENT: moist MMs Respiratory: no wheezing, no rales, no rhonchi, clear to auscultation bilateral Cardiovascular: RRR, no significant murmur Gastrointestinal: soft, non-tender, positive bowel sounds Musculoskeletal: edema present LLE edema and redness markedly improved, ulcer on medial ankle/leg look more venous stasis now Neurological: non-focal Psychiatric: normal affect, A&O x 3 Dx/Plan (1) Cellulitis of left leg Code(s): L03.116 - CELLULITIS OF LEFT LOWER LIMB Status: Acute Comment: on Rocephin, will switch to Keflex and complete 14 days of antibiotics, Dr. Mak now considering suppressive therapy with PCN afterward (2) Deep vein thrombosis (DVT) of left lower extremity Code(s): I82.402 - ACUTE EMBOLISM AND THOMBOS UNSP DEEP VEINS OF L LOW EXTREM Status: Acute Qualifiers: Affected thrombotic vein of extremity: femoral Chronicity: acute Qualified Code(s): I82.412 - Acute embolism and thrombosis of left femoral vein Comment: on Elliquis, encourage ambulation (3) Hyponatremia Code(s): E87.1 - HYPO-OSMOLALITY AND HYPONATREMIA Status: Acute Comment: mild, stable (4) Depression Code(s): F32.9 - MAJOR DEPRESSIVE DISORDER, SINGLE EPISODE, UNSPECIFIED Status : Chronic Qualifiers: Depression Type: major depressive disorder Comment: continuing Fluoxetine - Plan cont current plan of care, continue antibiotics D/C home today, arranged some [facility], f/u with Dr. Mak -: and PCP. * . - Discharge Day Encounter end time: 12:25
--- NOTE | 2018-07-12 10:28 | DIS ---
DATE OF ADMISSION: 06/28/2018 DATE OF DISCHARGE: 07/11/2018 PRIMARY CARE PHYSICIAN: Araceli Herrera MD REASON FOR ADMISSION: Acute DVT of left lower extremity and cellulitis. DIAGNOSES AT DISCHARGE: 1. Cellulitis of the left leg, mostly resolved. 2. Extensive deep venous thrombosis of the left lower extremity, on Eliquis. 3. Depression. 4. Hyponatremia, mild. PROCEDURES: Vascular ultrasound showing nonocclusive thrombus in the common femoral, deep femoral, proximal and mid femoral veins and then completely occlusive thrombus with in the distal femoral, popliteal, and posterior tibial veins. CONSULTATIONS: Infectious Disease, Juan Mak MD SUMMARY OF HOSPITAL COURSE: This is a 62-year-old white male with a history of borderline hypertension and depression. He came in with complaints of 2-day history of left lower extremity pain, swelling and redness. The patient states he initially thought a spider bite to the lower extremity, but did not actually witness this. On initial questioning, he did remember any sort of injury to the lower extremity, but later on, he remembered cracking his rosales on a piece of equipment at work. The patient woke up in the morning of admission, when noted swelling of the leg with redness and pain all the way up to his groin. He went to the emergency room, was diagnosed with extensive left lower extremity DVT, started on Lovenox as well as clindamycin and vancomycin and admitted to the hospital. The patient already had a full course of antibiotics in the hospital, eventually transitioning over to Keflex as per Dr. Mak' recommendations. He had improvement and resolution of most of the redness, still had extravasation of blood in the lower extremity from the significant swelling, this was transitioning over to a bruise. By the time of discharge, his swelling was starting to go down. He did have an extensive ulceration on the lower anterior rosales at the area of maximum swelling, which looks to be more of a venous stasis ulcer, likely due to the venous insufficiency from the DVT rather than infection. The patient was transitioned over to Eliquis during the hospitalization. He did have some low sodium initially on presentation, this improved with saline administration. He also had some lactic acidosis initially. The patient was improved the day of discharge, he was ambulating much better. He did not have any insurance coverage and so was not able to get any sort of rehab. We did do physical therapy in the hospital ambulating with a walker and he was able to obtain a walker from family for discharge and we were able to get some uriah home health visits as well. The patient was doing well the day of discharge. No fever. Eating well, ambulating much better. We gave him a coupon also for the first month of Eliquis and he sees Dr. Herrera who kind of work on giving a discount for his next month of medication as well. DISCHARGE MANAGEMENT: Discharged home with [facility]. ACTIVITY: As tolerated. DIET: Low-sodium, fluid-restricted diet. THERAPY: Home Health with occupational and physical therapy, home wound care. FOLLOWUP: Follow up with Dr. Herrera in 7 days, with Dr. Mak in 3 to 4 weeks. DISCHARGE MEDICATIONS: 1. Eliquis 5 mg twice a day, 60 tablets dispensed. 2. Keflex 500 mg 4 times a day for 2 more days followed by penicillin VK 250 mg twice a day, 60 tablets dispensed for prophylaxis of recurrent infection while he have this DVT. 3. Motrin 400 mg every 6 hours as needed for pain, 30 tablets dispensed. 4. Minerin cream applied topically as needed. 5. Continue fluoxetine 40 mg daily. Arranging the details of this discharge took 32 minutes. Job ID: [id number]
== END 2018-07-11 15:18 | disposition home health service (06) | DRG 300 ==
LOC: ERS 08:51 → T4-B 13:02
PROVIDERS: ADMIT Family Medicine; ATTEND Family Medicine
DX: I82.412 Acute embolism and thrombosis of left femoral vein (principal); L03.116 Cellulitis of left lower limb; E87.1 Hypo-osmolality and hyponatremia; E87.2 Acidosis; I10 Essential (primary) hypertension; F32.9 Major depressive disorder, single episode, unspecified; J30.2 Other seasonal allergic rhinitis; Z79.899 Other long term (current) drug therapy
CPT/HCPCS: 36415; 80048; 80053; 80202; 83605; 83735; 84100; 85007; 85025; 85027; 85060; 85610; 85730; 86140; 87040; 96361; 96372; 96374; 96375; 96376; J0696; J1650; J2270; J2543; J3370; J3475; J3480; J3490; J7050; Q0162

== ENCOUNTER 2018-07-16 19:19 | Observation (INO) | payer SELFPAY ==
[2018-07-16 20:02] LABS: #Basophils 0.1 thou/uL (0.0-0.2); #Eosinphils 0.2 thou/uL (0.0-0.7); #Monocytes 0.8 thou/uL (0.11-0.59); #Neutrophils 4.2 thou/uL (1.40-6.50); %Basophils 1.4 % (0.0-1.0); %Eosinophils 2.8 % (0.0-10.0); %Lymphocytes 26.8 % (21.0-51.0); %Monocytes 11.3 % (0.0-10.0); %Neutrophils 57.7 % (42.0-75.0); Hemoglobin 10.9 g/dL (14.0-18.0); Mean Corpuscular HGB CONC 33.6 g/dL (32.0-36.0); Mean Corpuscular Hemoglobin 30.7 pg (27.0-31.0); Mean Corpuscular Volume 91.2 fL (78.0-98.0); Mean Platelet Volume 6.6 fL (7.4-10.4); Platelet Count 746 thou/uL (130-400); RBC Distribution Width 12.4 % (11.5-14.5); Red Blood Cell (RBC) Count 3.54 mill/uL (4.70-6.10); White Blood Cell (WBC) Count 7.3 thou/uL (4.8-10.8)
[2018-07-16 20:32] LABS: ALT (SGPT) 23 U/L (8-55); AST (SGOT) 19 U/L (5-34); Albumin 3.5 g/dL (3.4-4.8); Alkaline Phosphatase 102 U/L (40-150); Anion Gap 14 mmol/L (10-20); Bilirubin, Total 0.5 mg/dL (0.2-1.2); Calc. Creatinine Clearance 0 mL/min (70-130); Calcium 9.2 mg/dL (7.8-10.44); Carbon Dioxide 25 mmol/L (23-31); Chloride 97 mmol/L (98-107); Estimated GFR-MDRD Greater than 90; Glucose 127 mg/dL (80-115); Potassium 4.1 mmol/L (3.5-5.1); Protein, Total 7.5 g/dL (5.8-8.1); Sodium 132 mmol/L (136-145)
--- NOTE | 2018-07-16 20:49 | RAD ---
AP and lateral views left tibia and fibula. HISTORY: Swelling and redness. AP and lateral views left tibia and fibula demonstrate soft tissue swelling. No evidence of fractures or bony lesions seen. IMPRESSION: Unremarkable AP and lateral views left tibia and fibula.
[2018-07-16] MEDS ORDERED: Morphine 4 MG/ML VIAL ONE (21:12)
[2018-07-16] MEDS ORDERED: Piperacillin/Tazobactam 4.5 GM VIAL ONE (21:12)
[2018-07-16] MEDS ORDERED: Vancomycin HCl 1 GM in Premix Bag 1 BAG IVPB ONE (21:15)
[2018-07-16 21:37] LABS: BUN (Urea Nitrogen) 10 mg/dL (8.4-25.7)
--- NOTE | 2018-07-16 22:37 | ULT ---
Left lower extremity venous Doppler ultrasound evaluation. HISTORY: Patient with known left lower extremity clot. Left lower extremity pain. Multiple longitudinal and transverse images of the left lower extremity venous systems obtained using multi hertz linear array transducer. Real-time, color flow and spectral waveform Doppler analysis demonstrates numerous enlarged left inguinal lymph nodes. Echogenic clot seen in the left common femoral vein, femoral profunda, superficial femoral vein, left popliteal vein. Some flow is seen in these partially clotted vessels. Some flow seen in the left posterior tibial veins. Extensive left lower extremity edema seen. IMPRESSION: Continued presence of echogenic clot in the left lower extremity venous system as describ ed above.
[2018-07-16] MEDS ORDERED: Acetaminophen 650 MG Suppository PR PRN (23:52)
[2018-07-16] MEDS ORDERED: Ondansetron PF 4 MG/2 ML Vial IVP PRN (23:52)
[2018-07-16] MEDS ORDERED: Ondansetron ODT 4 MG TAB PO PRN (23:52)
[2018-07-16] MEDS ORDERED: Acetaminophen 325 MG TAB PO PRN (23:52)
[2018-07-17 00:16] VITALS: BMI 23.9
[2018-07-17] MEDS ORDERED: Vancomycin HCl 750 MG in Sodium Chloride 0.9% 250 ML 250 ML IVPB SCH (01:00)
--- NOTE | 2018-07-17 03:31 | HP ---
PRIMARY CARE PHYSICIAN: Araceli Herrera MD CODE STATUS: Full code. TIME OF EVALUATION: 11:00 p.m. CHIEF COMPLAINT: Left lower extremity redness and swelling. HISTORY OF PRESENT ILLNESS: This is a 62-year-old male patient with past medical history of hypertension, came to the hospital after having recurrent cellulitis of the left lower extremity with significant redness, swelling, tenderness, nonhealing ulceration on the left foot, the patient reported that everything started when he got a puncture at the workplace, this happened 3 weeks ago. The patient was here admitted to our hospital for 2 weeks on broad-spectrum antibiotics. Dr. Mak had seen him in the past, the patient was sent home with some p.o. antibiotics and he reports it is getting worse and does not know reason why he came back. Symptoms are severe, significant drainage. REVIEW OF SYSTEMS: CONSTITUTIONAL: No fever, chills, or generalized weakness. RESPIRATORY: No cough, sputum production, or shortness of breath. CARDIOVASCULAR: No chest pain, or palpitation. GASTROINTESTINAL: No nausea, vomiting, diarrhea, or abdominal pain. MANAGER RESIDENTIAL: No dizziness, headache, or feeling lightheaded. GENITOURINARY: No burning on urination. EXTREMITIES: The patient has severe redness and leg swelling on the left lower extremity with drainage, nonhealing ulcer, decreased range of motion due to pain and gait instability due to pain was reported. All other systems were reviewed and negative except for the findings mentioned above. PAST MEDICAL HISTORY: As mentioned in the HPI. FAMILY HISTORY: Reviewed and no contributory to current presentation. PAST SURGICAL HISTORY: Shoulder surgery, sinus surgery, finger surgery. PSYCHIATRIC HISTORY: Depression. SOCIAL HISTORY: No drugs. The patient does not drink. The patient does not smoke. KNOWN ALLERGIES: Codeine and lisinopril. REPORTED MEDICATIONS: The patient was on Keflex . PHYSICAL EXAMINATION: VITAL SIGNS: On presentation, heart rate 97, oxygen saturation 97% on room air, blood pressure 147/81 with temperature 99.1. GENERAL APPEARANCE: The patient is alert, oriented, not in acute distress. HEENT: Eyes normal conjunctivae. Moist oral mucosa. Anicteric. No JVD. RESPIRATORY: Bilateral air entry. No rales or wheezes. Symmetric expansion. CARDIOVASCULAR: Normal rate, regular rhythm. No murmurs. No gallop. No edema. ABDOMEN: Soft, normal bowel sounds. MUSCULOSKELETAL: Baseline range of motion and strength. No tenderness except for the left lower extremity that has redness, swelling, tenderness, decreased range of motion, unstable gait due to pain. Peripheral pulses are present. Capillary refill seems to be intact. NEUROLOGIC: No evidence of any new focal weakness. Baseline speech. Cranial nerves seems to be intact. PSYCHIATRIC: The patient is in good mood. No anxiety. Optimal judgment. DIAGNOSTIC STUDIES: Tibia and fibula x-ray show unremarkable AP and lateral views of the tibia and fibula. Vascular ultrasound showed continued presence of echogenic clot in the left lower extremity venous system LABORATORY DATA: Labs were reviewed. White count 7.3, hemoglobin 10.9, MCV 91.2, platelet count 746, ESR 79. Chemistry; sodium 132, potassium 4.1, chloride 97, carbon dioxide 25, anion gap 14, BUN 10, creatinine 0.76, GFR greater than 90, glucose 127, and lactic acid 1.6, C-reactive protein 10.32 with globulin 4.0, albumin to globulin ratio 0.9. ASSESSMENT AND PLAN: The patient will be placed in the hospital with following medical problems: 1. Left lower extremity cellulitis. The patient had redness, infection and pain , some drainage from the foot in the nonhealing ulcer area. The patient has been started on antibiotics and we will consult Dr. Mak for any further recommendation. As noted, the patient also have DVT in the lower extremity, so some symptoms might be just secondary to DVT not to the infection. 2. Normocytic anemia. We will monitor hemoglobin, we will treat accordingly. 3. Hyponatremia, sodium 132, replace as needed. This is mild. 4. Hyperglycemia. It could be secondary to acute physical distress from disease , also could be due to low glucose tolerance. We will monitor, we will treat accordingly. No need for any acute intervention at this point. 5. Uncontrolled hypertension, systolic blood pressure 147 on presentation, we will monitor. This has resolved, we will treat accordingly. 6. Deep venous thrombosis prophylaxis. The patient is on anticoagulation. Job ID: [id number] MTDD
[2018-07-17 05:47] LABS: #Basophils 0.1 thou/uL (0.0-0.2); #Eosinphils 0.2 thou/uL (0.0-0.7); #Lymphocytes 1.5 thou/uL (1.20-3.40); #Monocytes 0.7 thou/uL (0.11-0.59); #Neutrophils 2.9 thou/uL (1.40-6.50); %Eosinophils 4.5 % (0.0-10.0); %Lymphocytes 27.8 % (21.0-51.0); %Monocytes 13.2 % (0.0-10.0); %Neutrophils 53.5 % (42.0-75.0); Hemoglobin 9.5 g/dL (14.0-18.0); Mean Corpuscular HGB CONC 32.5 g/dL (32.0-36.0); Mean Corpuscular Hemoglobin 30.2 pg (27.0-31.0); Mean Corpuscular Volume 93.1 fL (78.0-98.0); Mean Platelet Volume 6.5 fL (7.4-10.4); Platelet Count 584 thou/uL (130-400); RBC Distribution Width 12.5 % (11.5-14.5); Red Blood Cell (RBC) Count 3.14 mill/uL (4.70-6.10); White Blood Cell (WBC) Count 5.4 thou/uL (4.8-10.8)
[2018-07-17] MEDS ORDERED: Piperacillin/Tazobactam 4.5 GM in Sodium Chloride 0.9% 100 ML IVPB SCH (06:00)
[2018-07-17 06:03] LABS: Anion Gap 8 mmol/L (10-20); BUN (Urea Nitrogen) 6 mg/dL (8.4-25.7); Calc. Creatinine Clearance 129 mL/min (70-130); Calcium 8.6 mg/dL (7.8-10.44); Carbon Dioxide 29 mmol/L (23-31); Chloride 103 mmol/L (98-107); Estimated GFR-MDRD Greater than 90; Glucose 111 mg/dL (80-115); Potassium 3.9 mmol/L (3.5-5.1); Sodium 136 mmol/L (136-145)
[2018-07-17] MEDS: Apixaban 5 MG TAB PO SCH ×2 (08:54→20:29)
[2018-07-17] MEDS: FLUoxetine HCl 20 MG CAP PO SCH (08:54)
[2018-07-17] MEDS ORDERED: Enoxaparin Sodium 40 MG/0.4 ML SYRINGE SC SCH (09:00)
[2018-07-17] MEDS ORDERED: Non-Formulary Item 1 EACH (Acetaminophen With Codeine [Tylenol With Codeine #4] 1 TABLET) PO PRN (09:46)
[2018-07-17] MEDS ORDERED: Acetaminophen/Codeine 30-300mg Tablet PO PRN (10:15)
[2018-07-17] MEDS ORDERED: Vancomycin HCl 1.75 GM in Sodium Chloride 0.9% 500 ML IVPB SCH (11:00)
[2018-07-17] MEDS ORDERED: Loratadine 10 MG TAB PO PRN (17:48)
--- NOTE | 2018-07-17 19:38 | PRG ---
DATE OF SERVICE: 07/17/2018 SUBJECTIVE: Mr. Urena is a 62-year-old male with past medical history significant for recently diagnosed extensive left lower extremity DVT with resulting cellulitis that was treated in this facility from June 28 to July 11, 2018. He returned back to the hospital with complaints of increased pain in the left lower extremity and was admitted to observation for further assessment and treatment. The patient states that overall his leg has been improving since his discharge. He states that he used a shoe that was too tight to walk all around [facility] prior to his arrival, which exacerbated the pain of his ulcer. He complains of seasonal allergies and "not feeling well." He has no chest pain or shortness of breath. OBJECTIVE: VITAL SIGNS: Blood pressure 120/75, pulse is 80, respirations 16, O2 saturation is 99% on room air, and temperature is 98.3. GENERAL: The patient is a thin male, resting comfortably in bed, in no acute distress. HEENT: Head, atraumatic and normocephalic. Mucous membranes are moist. NECK: Supple. No lymphadenopathy. No JVD. Trachea is midline. CV: S1 and S2. Regular rhythm. No appreciable murmurs, rubs, or gallops. LUNGS: Regular respiratory rate and pattern. Clear to auscultation bilaterally. ABDOMEN: Soft. Positive bowel sounds. Nontender. No masses. EXTREMITIES: Right lower extremity shows no edema and is warm and well perfused with positive DP pulses. Left lower extremity shows erythema just distal to the knee down to the foot. There is some scaling and chronic venous stasis changes to the skin. He does have a medial large venous stasis ulcer which does not appear to be infected, but does appear to have some new granulation tissue present. LABORATORY DATA: White blood cell count 5.4, RBC 3.14, hemoglobin 9.5, and hematocrit 29.2. Sodium 136, potassium 3.9, chloride 103, anion gap 8, BUN 6, and creatinine 0.69. ASSESSMENT: 1. LLE pain secondary to excessive ambulation in ill footing shoe, in context of below. 2. Recently diagnosed extensive deep venous thrombosis of the left lower extremity, now with some flow in the previously completely clotted vessel after initiation of anticoagulation. 3. Recent cellulitis of left lower extremity, status post treatment. The patient's leg appears to have improved greatly upon comparison of his previous photographs. He did undergo a complete treatment of his cellulitis at his previous hospitalization and was started on penicillin VK as prophylaxis. 4. Chronic venous stasis ulcer, now with evidence of some granulation tissue. No obvious infection noted. 5. Mild hyponatremia, chronic. PLAN: This patient has been evaluated and assessed with Dr. Zuñiga who has taken care of the patient previously. He notes great improvement in the overall appearance of the patient's left lower extremity. At this point, we will deescalate antibiotic coverage and continue the patient's penicillin VK. We will need Wound Care input regarding the patient's venous stasis ulcer and protecting this while it heals to prevent re-injury. Continue Eliquis. The patient remains afebrile and has no white count at this time. Anticipate discharge tomorrow. Care of this patient has been discussed with both Dr. Driver and with Dr. Zuñiga, and they agree with the above. Job ID: [id number] MTDD
[2018-07-17] MEDS: Penicillin V Potassium 250 MG TAB PO SCH (20:29)
[2018-07-17] MEDS ORDERED: Morphine 4 MG/ML VIAL SLOW IVP PRN (23:37)
[2018-07-18 05:30] LABS: #Basophils 0.1 thou/uL (0.0-0.2); #Eosinphils 0.3 thou/uL (0.0-0.7); #Lymphocytes 1.9 thou/uL (1.20-3.40); #Monocytes 0.9 thou/uL (0.11-0.59); #Neutrophils 4.5 thou/uL (1.40-6.50); %Basophils 1.5 % (0.0-1.0); %Eosinophils 4.3 % (0.0-10.0); %Lymphocytes 24.7 % (21.0-51.0); %Monocytes 11.6 % (0.0-10.0); %Neutrophils 57.9 % (42.0-75.0); Mean Corpuscular HGB CONC 33.3 g/dL (32.0-36.0); Mean Corpuscular Hemoglobin 30.9 pg (27.0-31.0); Mean Corpuscular Volume 92.8 fL (78.0-98.0); Mean Platelet Volume 6.2 fL (7.4-10.4); Platelet Count 584 thou/uL (130-400); RBC Distribution Width 12.2 % (11.5-14.5); Red Blood Cell (RBC) Count 3.23 mill/uL (4.70-6.10); White Blood Cell (WBC) Count 7.7 thou/uL (4.8-10.8)
[2018-07-18 05:49] LABS: Anion Gap 11 mmol/L (10-20); BUN (Urea Nitrogen) 6 mg/dL (8.4-25.7); Calc. Creatinine Clearance 126 mL/min (70-130); Calcium 8.7 mg/dL (7.8-10.44); Carbon Dioxide 26 mmol/L (23-31); Chloride 102 mmol/L (98-107); Estimated GFR-MDRD Greater than 90; Glucose 95 mg/dL (80-115); Potassium 3.9 mmol/L (3.5-5.1); Sodium 135 mmol/L (136-145)
[2018-07-18] MEDS: Acetaminophen/Codeine 30-300mg Tablet PO PRN ×2 (05:53→09:05)
--- NOTE | 2018-07-18 07:56 | PDOC.PN ---
- Subjective Encounter Start Date: 07/18/18 Encounter Start Time: 12:00 Subjective: Patient with some leakage from lateral ankle now, no fever, -: no other complaints. - Objective Resuscitation Status - Order Detail: 07/16/18 23:52 Resuscitation Status Routine Resuscitation Status: FULL: Full Resuscitation MAR Reviewed: Yes Vital Signs & Weight: Weight Admit Weight 186 lb 8 oz Weight 186 lb 8 oz I&O: 07/17/18 07/18/18 07/19/18 06:59 06:59 06:59 Intake Total 1620 Output Total 1000 Balance 620 Result Diagrams: 07/18/18 05:18 07/18/18 05:18 Phys Exam - Physical Examination Constitutional: NAD HEENT: moist MMs Respiratory: no wheezing, no rales, no rhonchi Cardiovascular: RRR, no significant murmur Gastrointestinal: soft Musculoskeletal: edema present significant edema of LLE below knee, actually better from last admit, venou stasis ulcer on medial ankle healing a bit, starting to get one laterally Neurological: non-focal Psychiatric: normal affect, A&O x 3 Dx/Plan (1) Deep vein thrombosis (DVT) of left lower extremity Code(s): I82.402 - ACUTE EMBOLISM AND THOMBOS UNSP DEEP VEINS OF L LOW EXTREM Status: Acute Qualifiers: Comment: on Elliquis, encourage ambulation, patient understands to continue full 3 months of anticoagulation (2) Venous stasis ulcer Code(s): I83.009 - VARICOSE VEINS OF UNSP LOWER EXTREMITY W ULCER OF UNSP SITE; L97.909 - NON-PRS CHRONIC ULC UNSP PRT OF UNSP LOW LEG W UNSP SEVERITY Status : Acute Comment: due to extensive DVT, actually improving some, d/c home today , no evidence of overlying infection at this time - Plan cont current plan of care * . - Discharge Day Encounter end time: 12:15
[2018-07-18] MEDS ORDERED: Silver Sulfadiazine 1% Cream 50 GM JAR TOP SCH (09:00)
[2018-07-18] MEDS: Apixaban 5 MG TAB PO SCH (09:05)
[2018-07-18] MEDS: FLUoxetine HCl 20 MG CAP PO SCH (09:05)
[2018-07-18] MEDS: Penicillin V Potassium 250 MG TAB PO SCH (09:05)
[2018-07-18 12:44] VITALS: BP 145/82; TEMP 97.8
--- NOTE | 2018-07-19 01:57 | DIS ---
DATE OF ADMISSION: 07/16/2018 DATE OF DISCHARGE: 07/18/2018 PRIMARY CARE PHYSICIAN: Dr. Araceli Herrera. REASON FOR ADMISSION: Concern for possible left lower extremity infection. DIAGNOSES AT DISCHARGE: 1. Extensive deep venous thrombosis of left lower extremity, improving a little bit. 2. Severe venous stasis ulcer without evidence of superinfection. PROCEDURES: 1. Tib-fib x-ray of the left leg showing unremarkable left tibia and fibula without any evidence of fracture or osteomyelitis. 2. Left lower extremity Doppler ultrasound showing echogenic clot seen in left femoral vein, femoral profunda, superficial femoral vein, and left popliteal vein, and some flow seen in these partially clotted vessels along with some flow seen in the left posterior tibial veins which previously had no flow. CONSULTATIONS: None. SUMMARY OF HOSPITAL COURSE: This is a 62-year-old white male with a past medical history of DVT, recently in the hospital also with venous stasis ulcer and cellulitis. The patient had been treated with antibiotics with resolution of the cellulitis and was discharged. He had been up on his feet a lot, getting more swelling in his left ankle and wearing a tight Croc which caused some cracking of the skin around the ankle. Also had persistence of a medial ankle venous stasis ulcer, so he came into the emergency room. There, it was concerned that maybe this was infected, so he was given antibiotics and placed in the hospital. I did evaluate the patient later in the day and then re-evaluate today. His ulcer actually looks a little bit better. He is starting to develop a very tiny venous stasis ulcer on the lateral part of the ankle with the medial one is healing a little bit. He does have continued severe swelling of his ankle. Further up in the leg, the edema is actually improving some. The venous congestion is a lot better. He is starting to have scaling of the skin throughout showing healing from the improving edema. At this point given still continued presence of clot, I do not think it would be good to put him on significant compression wraps or Unna boot, though he may need that in the future. He does not need any further antibiotics besides the penicillin for prophylaxis that we are already giving him. He is stable for discharge. DISCHARGE MANAGEMENT: Discharged home. FOLLOWUP: Follow up with Dr. Herrera in the next couple of weeks. ACTIVITY: As tolerated. DIET: Regular diet. WOUND CARE: The patient is to continue to place a mildly compressive dressing on the ankle when ambulating, but he should rest regularly and he should elevate his foot and can take the dressing off at that time, multiple times throughout the day to help with the edema and healing of this pressure ulcer. He is also not to wear tight shoes. He is going to try instead of the wearing hard Crocs, try switching to a 2 or 3 size too big tennis shoe for the next little while until this improves. DISCHARGE MEDICATIONS: The patient to continue all of his home medications. 1. Eliquis 5 mg twice a day to continue of 3-month course. 2. Prozac 40 mg daily. 3. Penicillin Vee K 250 mg twice a day. 4. Tylenol with Codeine as needed for pain. 5. Ibuprofen as needed for pain. 6. Minerin cream, petroleum gel applied as needed. 7. Naproxen as needed. Job ID: [id number]
== END 2018-07-18 14:08 | disposition home or self-care (01) ==
LOC: ERS 19:19 → 2SW 23:44 → INTOOBSV 23:44 → OBSVTOIN 23:44
PROVIDERS: ADMIT Hospitalist; ATTEND Hospitalist
DX: I82.402 Acute embolism and thrombosis of unspecified deep veins of left lower extremity (principal); I83.008 Varicose veins of unspecified lower extremity with ulcer other part of lower leg; L97.809 Non-pressure chronic ulcer of other part of unspecified lower leg with unspecified severity; F32.9 Major depressive disorder, single episode, unspecified; D64.9 Anemia, unspecified; I10 Essential (primary) hypertension; R73.9 Hyperglycemia, unspecified; E87.1 Hypo-osmolality and hyponatremia; Z88.5 Allergy status to narcotic agent; Z88.8 Allergy status to other drugs, medicaments and biological substances
CPT/HCPCS: 36415; 80048; 80053; 83605; 85025; 85652; 86140; 87040; 96361; 96365; 96367; 96375; G0378; J2270; J2543; J3370; J3490; J7050

== ENCOUNTER 2018-08-06 14:23 | Inpatient (IN) | payer OTHER, SELFPAY ==
[2018-08-06 15:50] LABS: #Eosinphils 0.1 thou/uL (0.0-0.7); #Lymphocytes 2.1 thou/uL (1.20-3.40); #Monocytes 0.7 thou/uL (0.11-0.59); #Neutrophils 5.6 thou/uL (1.40-6.50); %Basophils 0.3 % (0.0-1.0); %Eosinophils 1.3 % (0.0-10.0); %Lymphocytes 24.4 % (21.0-51.0); %Monocytes 7.9 % (0.0-10.0); %Neutrophils 66.1 % (42.0-75.0); Hemoglobin 12.6 g/dL (14.0-18.0); Mean Corpuscular HGB CONC 33.8 g/dL (32.0-36.0); Mean Corpuscular Hemoglobin 30.8 pg (27.0-31.0); Mean Corpuscular Volume 91.2 fL (78.0-98.0); Mean Platelet Volume 6.3 fL (7.4-10.4); Platelet Count 362 thou/uL (130-400); RBC Distribution Width 14.7 % (11.5-14.5); Red Blood Cell (RBC) Count 4.09 mill/uL (4.70-6.10); White Blood Cell (WBC) Count 8.4 thou/uL (4.8-10.8)
[2018-08-06 16:11] LABS: ALT (SGPT) 10 U/L (8-55); AST (SGOT) 17 U/L (5-34); Albumin 3.9 g/dL (3.4-4.8); Alkaline Phosphatase 100 U/L (40-150); Anion Gap 14 mmol/L (10-20); BUN (Urea Nitrogen) 10 mg/dL (8.4-25.7); Bilirubin, Total 0.4 mg/dL (0.2-1.2); Calc. Creatinine Clearance 0 mL/min (70-130); Calcium 9.5 mg/dL (7.8-10.44); Carbon Dioxide 23 mmol/L (23-31); Chloride 100 mmol/L (98-107); Estimated GFR-MDRD Greater than 90; Globulin 4.3 g/dL (2.4-3.5); Glucose 65 mg/dL (80-115); Potassium 3.9 mmol/L (3.5-5.1); Protein, Total 8.2 g/dL (5.8-8.1); Sodium 133 mmol/L (136-145)
--- NOTE | 2018-08-06 16:11 | RAD ---
THREE VIEWS LEFT ANKLE: 08/06/18 HISTORY: Swelling. COMPARISON: None. FINDINGS: There appears to be soft tissue swelling and subcutaneous air suggesting a cellulitis with possible s oft tissue abscess. With regards to the osseous structures, no periosteal reaction or destructive/ero sive changes. Ankle mortise is intact. IMPRESSION: Soft tissue cellulitis with possible soft tissue abscess along the medial aspect of the left lower ex tremity. POS: OFF
--- NOTE | 2018-08-06 16:14 | RAD ---
LEFT FOOT THREE VIEWS: 08/06/18 HISTORY: Swelling. COMPARISON: None. FINDINGS: Lisfranc alignment is maintained. Joint spaces are preserved. With regards to the osseous structures of the left foot, no fracture, cortical irregularity, periosteal reaction, or erosive/destructive ch anges. There is soft tissue swelling and subcu air on the medial aspect of the left lower extremity. Please refer to the ankle radiograph report or further detail. IMPRESSION: Soft tissue abnormality at the level of the ankle. Please refer to ankle report for further detail. With regards to the osseous structures of the left foot, no evidence of erosion or destruction. No ra diographic evidence of osteomyelitis. POS: OFF
[2018-08-06] MEDS ORDERED: Piperacillin/Tazobactam 4.5 GM VIAL ONE (16:41)
[2018-08-06] MEDS ORDERED: Morphine 4 MG/ML VIAL ONE (16:41)
[2018-08-06] MEDS ORDERED: Ondansetron PF 4 MG/2 ML Vial ONE (16:41)
[2018-08-06 17:50] LABS: INR-International Normal Ratio 1.1; PTT 28.8 SEC (22.9-36.1)
[2018-08-06] MEDS ORDERED: Ondansetron ODT 4 MG TAB SL PRN (18:44)
[2018-08-06] MEDS ORDERED: Ondansetron PF 4 MG/2 ML Vial IVP PRN (18:44)
[2018-08-06] MEDS ORDERED: Piperacillin/Tazobactam 4.5 GM in Sodium Chloride 0.9% 100 ML IVPB SCH ×2 (20:00→23:00)
[2018-08-06] MEDS: Sodium Chloride 0.9% 1,000 ML IV SCH (20:11)
[2018-08-06] MEDS ORDERED: Acetaminophen 650 MG Suppository PR PRN (20:30)
[2018-08-06] MEDS: Apixaban 5 MG TAB PO SCH (22:07)
--- NOTE | 2018-08-06 22:48 | HP ---
PRIMARY CARE DOCTOR: Dr. Araceli Herrera. CODE STATUS: Full code. TIME OF EVALUATION: 12.40 p.m. CHIEF COMPLAINT: Left leg nonhealing wound. HISTORY OF PRESENT ILLNESS: A 62-year-old male patient with past medical history of left leg swelling with a nonhealing wound. The patient has had this problem for the past few weeks. He was admitted here and he was sent home. He also had a DVT on the left leg. He said he ran out of medication, due to financial issues. He decided to come back today. Dr. Mak has seen him in the past and he will be consulted again for any further recommendation of antibiotics. We will put the patient on broad-spectrum antibiotics. Now, the left lower extremity is very swollen with significant change in color and very bad odor coming from the wound. Symptoms are severe. REVIEW OF SYSTEMS: CONSTITUTIONAL: No fever, chills, or generalized weakness. RESPIRATORY: No cough, sputum production, or shortness of breath. CARDIOVASCULAR: No chest pain or palpitation. GASTROINTESTINAL: No nausea, vomiting, diarrhea, or abdominal pain. 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 GENITOURINARY: No burning on urination. EXTREMITIES: Left lower extremity swelling, redness with change in coloration, nonhealing wound about 5 x 5 inches at the base, but older. All other systems were reviewed and negative, except for the findings mentioned above. PAST MEDICAL HISTORY: Positive for hypertension. FAMILY HISTORY: Reviewed, noncontributory for current presentation. SURGICAL HISTORY: Arthroscopic surgery of the right shoulder, right second finger. Surgical history includes sinus surgery. PSYCHIATRIC HISTORY: Includes depression. SOCIAL HISTORY: Patient drinks everyday, three to four 12-ounce beer everyday. No smoking history. His lives with a roommate. KNOWN ALLERGIES: Clonidine and lisinopril. REPORTED MEDICATIONS: Eliquis. PHYSICAL EXAMINATION: VITAL SIGNS: On presentation, blood pressure 130/79 with heart rate 93, respiratory rate was 16, temperature 98, and oxygen saturation was 96% on room air. GENERAL APPEARANCE: The patient is alert, oriented, not in acute distress. HEENT: Eyes, normal conjunctivae. Moist oral mucosa. Anicteric. No JVD. RESPIRATORY: Bilateral air entry. No rales. No wheezes. Symmetric expansion. CARDIOVASCULAR: Normal rate. Regular rhythm. No murmurs. No gallop. No edema. ABDOMEN: Soft. Normal bowel sounds. MUSCULOSKELETAL: Baseline range of motion and tenderness. EXTREMITY: Has a significant swelling, redness, change in coloration, and chronic changes of skin tropism. The patient has a nonhealing wound that is about 5 x 5 inches with very bad odor and mucopurulent drainage. SKIN: Warm and intact. No pallor, no rash, no redness, except for the findings described in musculoskeletal. Capillary refill seems to be intact. NEUROLOGIC: No evidence of any new focal weakness. Cranial nerves seem to be intact. PSYCH: Patient is in good mood. No anxiety. Optimal judgment. LABORATORY DATA: Reviewed. Patient has white count of 8.4, hemoglobin 12.6, MCV 91.2, and platelet count 362. PT 14, INR 1.1, and PTT 28.8. Chemistry; sodium 133; potassium 3.9; chloride 100; carbon dioxide 23; anion gap 14; BUN 10; creatinine 0.72; GFR greater than 90; glucose 65, repeat one 95; lactic acid 1.5; calcium 9.5; and total bilirubin 0.4. LFTs were negative. C-reactive protein 1.86. Ankle x-ray showed soft tissue cellulitis, possible soft tissue abscess on the medial abscess of the left lower extremity. Soft tissue abnormalities at the level of the left ankle. Please refer to ankle report for further details. With regard to the osseus structure of the left foot, no evidence of erosion or destruction. No radiographic evidence of osteomyelitis. ASSESSMENT AND PLAN: Patient will be placed in the hospital for the following medical problems: 1. He has chronic nonhealing wound of the left ankle in the medial area. This has been going on for a few weeks. Patient has been seen by Dr. Mak in the past. We will consult him again. Patient ran out of medication and now the foot is worse. On the x-ray, there does not seem to be any involvement of the bone, however, he may be having abscess in the soft tissue. Patient might need orthopedics for evaluation and any further surgical procedure in the affected area. Patient has been started on broad-spectrum antibiotics and we will continue for now. We will monitor treatment depending on sensitivity and recommendation from Dr. Mak. 2. Hyponatremia, sodium 133. This is mild, no need for any acute intervention. We will monitor for any further treatment adjustment. 3. Controlled hypertension. Reconcile home medications. 4. Deep venous thrombosis prophylaxis. Job ID: [id number] [facility]ri
[2018-08-06] MEDS: Piperacillin/Tazobactam 4.5 GM in Sodium Chloride 0.9% 100 ML IVPB SCH (23:29)
[2018-08-06] MEDS: HYDROcodone/Acetaminophen 5/325 mg Tablet PO PRN (23:30)
[2018-08-07] MEDS: Vancomycin HCl 1.25 GM in Sodium Chloride 0.9% 250 ML 250 ML IVPB SCH ×2 (01:06→10:28)
[2018-08-07] MEDS: Sodium Chloride 0.9% 1,000 ML IV SCH (06:13)
[2018-08-07] MEDS: HYDROcodone/Acetaminophen 5/325 mg Tablet PO PRN ×3 (06:13→18:30)
[2018-08-07 06:59] LABS: #Basophils 0.1 thou/uL (0.0-0.2); #Eosinphils 0.3 thou/uL (0.0-0.7); #Lymphocytes 1.1 thou/uL (1.20-3.40); #Monocytes 0.8 thou/uL (0.11-0.59); #Neutrophils 4.9 thou/uL (1.40-6.50); %Eosinophils 4.4 % (0.0-10.0); %Lymphocytes 15.1 % (21.0-51.0); %Monocytes 10.8 % (0.0-10.0); %Neutrophils 68.7 % (42.0-75.0); Hemoglobin 11.7 g/dL (14.0-18.0); Mean Corpuscular HGB CONC 32.8 g/dL (32.0-36.0); Mean Corpuscular Hemoglobin 30.5 pg (27.0-31.0); Mean Corpuscular Volume 92.9 fL (78.0-98.0); Mean Platelet Volume 6.5 fL (7.4-10.4); Platelet Count 269 thou/uL (130-400); RBC Distribution Width 14.8 % (11.5-14.5); Red Blood Cell (RBC) Count 3.83 mill/uL (4.70-6.10); White Blood Cell (WBC) Count 7.1 thou/uL (4.8-10.8)
[2018-08-07 07:16] LABS: Anion Gap 9 mmol/L (10-20); BUN (Urea Nitrogen) 9 mg/dL (8.4-25.7); Calc. Creatinine Clearance 134 mL/min (70-130); Calcium 8.8 mg/dL (7.8-10.44); Carbon Dioxide 26 mmol/L (23-31); Chloride 105 mmol/L (98-107); Estimated GFR-MDRD Greater than 90; Glucose 131 mg/dL (80-115); Potassium 4.1 mmol/L (3.5-5.1); Sodium 136 mmol/L (136-145)
[2018-08-07] MEDS: Piperacillin/Tazobactam 4.5 GM in Sodium Chloride 0.9% 100 ML IVPB SCH ×3 (09:37→23:56)
[2018-08-07] MEDS: FLUoxetine HCl 20 MG CAP PO SCH (09:37)
[2018-08-07] MEDS: Apixaban 5 MG TAB PO SCH ×2 (09:37→20:38)
[2018-08-07 17:00] LABS: Vancomycin, Trough 15.5 ug/mL
[2018-08-07] MEDS ORDERED: RENALLY ADJUST ANTIBIOTICS IVPB PRN (18:49)
--- NOTE | 2018-08-07 20:04 | PDOC.PN ---
- Subjective Encounter Start Date: 08/07/18 Encounter Start Time: 18:30 Patient seen and examined for soft tissue infection. No fever. Pain controlled. No other complaints. No overnight events - Objective Resuscitation Status - Order Detail: 08/06/18 20:30 Resuscitation Status Routine Resuscitation Status: FULL: Full Resuscitation MAR Reviewed: Yes Vital Signs & Weight: Weight Admit Weight 187 lb Weight 187 lb I&O: 08/06/18 08/07/18 08/08/18 06:59 06:59 06:59 Intake Total 2100 1700 Output Total 1500 1650 Balance 600 50 Result Diagrams: 08/07/18 06:40 08/07/18 06:40 Radiology Reviewed by me: Yes (Ankle XR - no Osteo) Phys Exam - Physical Examination Constitutional: NAD Respiratory: no wheezing, no rhonchi Cardiovascular: RRR, no rub Gastrointestinal: soft, non-tender, positive bowel sounds Musculoskeletal: edema present (LLE with dressing noted) Neurological: moves all 4 limbs Dx/Plan - Plan DVT proph w/lovenox IMPRESSION: Infected LLE venous ulcer with Cellulitis Recent diagnosis of LLE DVT - not compliant with Eliquis due to cost Chronic venous stasis Med noncompliance PLAN: Cont Eliquis Cont Zosyn Consult Gen surg per wound care recs Cont wound care DC IVF Ambulate Cont other meds as below Review of Systems - Review of Systems Respiratory: negative: Cough, Dry, Shortness of Breath, Hemoptysis, SOB with Excertion, Pleuritic Pain, Sputum, Wheezing Cardiovascular: negative: chest pain, palpitations, orthopnea, paroxysmal nocturnal dyspnea, edema, light headedness, other - Medications/Allergies Allergies/Adverse Reactions: Allergies Allergy/AdvReac Type Severity Reaction Status Date / Time clonidine Allergy Unknown back pain Verified 07/17/18 00:19 lisinopril Allergy Unknown back pain Verified 07/17/18 00:19 Medications: Current Medications Acetaminophen (Tylenol) 650 mg PO Q4H PRN PRN Reason: Headache/Fever/Mild Pain (1-3) Acetaminophen (Tylenol) 650 mg [place] Q4H PRN PRN Reason: Headache/Fever/Mild Pain (1-3) Hydrocodone Bitart/Acetaminophen ([place] 5/325) 1 tab PO Q4H PRN PRN Reason: Moderate Pain (4-6) Last Admin: 08/07/18 18:30 Dose: 1 tab Apixaban (Eliquis) 5 mg PO BID [facility] Last Admin: 08/07/18 09:37 Dose: 5 mg Fluoxetine HCl (Prozac) 40 mg PO DAILY [facility] Last Admin: 08/07/18 09:37 Dose: 40 mg Piperacillin Sod/Tazobactam (Sod 4.5 gm/ Sodium Chloride) 100 mls @ 200 mls/hr IVPB 0800,1600,2359 [facility] Last Admin: 08/07/18 16:11 Dose: 100 mls Miscellaneous Medication (Pharmacy To Dose) 1 each IVPB PRN PRN PRN Reason: Pharmacy to dose Saccharomyces Boulardii (Florastor) 250 mg PO DAILY [facility] Sodium Hypochlorite (Dakin's Half Strength 0.25% Solution) 0 ml TOP ASDIR PRN PRN Reason: Wound Care
[2018-08-08] MEDS: HYDROcodone/Acetaminophen 5/325 mg Tablet PO PRN ×4 (00:02→20:09)
[2018-08-08] MEDS ORDERED: Ondansetron PF 4 MG/2 ML Vial IVP PRN (02:44)
[2018-08-08] MEDS ORDERED: Ondansetron ODT 4 MG TAB PO PRN (02:44)
[2018-08-08] MEDS ORDERED: Sodium Chloride 0.9% 1,000 ML IV SCH (02:45)
[2018-08-08] MEDS ORDERED: Sodium Hypochlorite 0.25% Solution 480 ML BOT TOP PRN (08:00)
[2018-08-08] MEDS: Piperacillin/Tazobactam 4.5 GM in Sodium Chloride 0.9% 100 ML IVPB SCH ×2 (08:07→15:12)
[2018-08-08] MEDS: Apixaban 5 MG TAB PO SCH ×2 (08:07→20:09)
[2018-08-08] MEDS: Saccharomyces boulardii 250 MG CAP PO SCH (08:07)
[2018-08-08] MEDS: FLUoxetine HCl 20 MG CAP PO SCH (08:07)
--- NOTE | 2018-08-08 08:43 | CON ---
DATE OF CONSULTATION: 08/07/2018 HISTORY OF PRESENT ILLNESS: Mr. Urena is back in the hospital. I saw this gentleman in July 03 when he presented with a history of hypertension, previous cat bite associated infection in right upper extremity, and then inflammatory changes in the left lower extremity. The initial impression was deep vein thrombosis in left lower extremity with possible associated cellulitis and blistering. The patient was treated with anticoagulation and antimicrobial therapy. 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 He was not able to continue taking his Eliquis because of lack of insurance. He could not even fill his penicillin and then he developed an ulceration in medial aspect of the left ankle right around the malleolus, which became foul smelling and he is back in the hospital because of that. Dr. Gillette has been consulted and Wound Care as well. He denies headaches, visual symptoms, sore throat, odynophagia, or dysphagia. No cough, sputum production, or chest pain. No abdominal pain, diarrhea, or genitourinary symptoms. PAST MEDICAL HISTORY: Includes hypertension, depression, right hand infection following cat bite, sinus surgery, recent episode of extensive deep vein thrombosis which was treated with Eliquis. He also was given antimicrobial therapy, although I felt that postphlebitic syndrome was the more likely scenario. ALLERGIES: NONE. FAMILY HISTORY: Noncontributory. 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 Does not smoke. He is right now impaired and is disabled, cannot work and financially having difficulties, cannot afford his medications. CURRENT MEDICATIONS: 1. Tylenol. 2. [place]. 3. Eliquis. 4. Prozac. 5. Zosyn. 6. Vancomycin. PHYSICAL EXAMINATION: VITAL SIGNS: T-max 98.2, blood pressure 130/80, pulse 68, respirations 18, O2 saturation 95. SKIN: We have this irregular necrotic ulcer in medial aspect of the left ankle. The borders have a little bit or some undermining at the center. There is this necrotic eschar and also yellow slough covering pretty much 100% of the base of the ulcer. There is not much erythema around the margin of the ulcer. The side measurements 6 x 6 cm. No lymphadenopathy. HEENT: Ocular movements conjugate. Nasal passages patent. Oral cavity normal. Quite a few teeth in place with quite a bit of decay and gum disease. NECK: Supple. No jugular venous distention. LUNGS: Clear to auscultation and percussion. HEART: S1, S2. Regular rate. No S3 or S4. ABDOMEN: Soft, not distended or tender. No ascites. No bladder distention. Pulses are 1+ in dorsalis pedis. Cap refill is normal. NEUROLOGIC: Nonfocal including cognitive function. LABORATORY DATA: White cell count 8.4, hemoglobin 12.6, platelets 362 with normal differential. INR 1.1. Sodium 136, creatinine 0.67. Liver profile normal. Albumin 3.9. Two sets of blood culture, no growth thus far. There is a foot x- ray which showed soft tissue abnormality, but no osseous destruction. There is an ankle x-ray with cellulitis, some abscess, probably the ulcer. ASSESSMENT: Recent episode of extensive deep vein thrombosis postphlebitic syndrome but now, he has a large ulcerated area which is probably likely venous ulceration. He has quite a bit of necrosis and probably is going to need some chemical or surgical debridement and then compressive dressings. Antimicrobial therapy has only an ancillary role here and I do not think the infection or cellulitis is the primary process causing this. This is a large ulcer. He has good dorsalis pedis pulses. I do not think the peripheral vascular disease is contributing to the phenomenon either. An atypical infection is unlikely. Vasculitis and malignancy also not likely. Job ID: [id number] [facility]
[2018-08-08] MEDS ORDERED: HYDROcodone/Acetaminophen 5/325 mg Tablet PO SCH (14:45)
--- NOTE | 2018-08-08 18:07 | PRG ---
DATE OF SERVICE: 08/08/2018 SUBJECTIVE: Mr. Urena is feeling better. He had debridement by Dr. Gillette and I do not have a wound photo note and I did not remove the dressing. OBJECTIVE: LUNGS: Clear. HEART: S1 and S2. Regular rate. ABDOMEN: Soft and not distended. EXTREMITIES: The lower extremities not swollen except for the leg, which is post phlebitic syndrome looking leg. LABORATORY DATA: White cell count 7.1, hemoglobin 11.7, and platelets 269. Creatinine 0.67. ASSESSMENT AND DISCUSSION: Extensive deep venous thrombosis with post phlebitic syndrome and now an ulcerated area in the medial aspect, probably from the post phlebitic syndrome, surgical sharp debridement has been completed and I think again antimicrobials only an ancillary role here, most of the care would involve compressive dressing and due to his social situation having issues with his worker's comp insurance, that is going to be the main limiting factor in recovery. He also is by himself and does not have much help for activities of daily living. I envision transition to oral antimicrobial therapy, probably Augmentin for discharge planning for few days. Job ID: [id number]
--- NOTE | 2018-08-08 21:51 | CON ---
DATE OF CONSULTATION: REASON FOR CONSULTATION: Left foot ulcer. HISTORY OF PRESENT ILLNESS: Mr. Urena is a 62-year-old man with no significant past medical history except for hyperlipidemia and mild hypertension who sustained a puncture wound to his left leg about a little over a month ago. He developed cellulitis and then developed a DVT of his left leg. He was admitted to the hospital for about 2 weeks on antibiotics, but improved and was discharged home on Xarelto. He came back into the hospital, because of increased pain and drainage from his ankles and was found to have developed fairly significant venous stasis ulceration of his medial malleolus. This was treated conservatively and improved and he was discharged home again. He states that after his discharge, he was doctoring his wound himself. He had been taking his Xarelto as prescribed, but when his 30 day supply ran out, he found himself unable to afford a refill, so had been off Xarelto for some time. The swelling in his leg got worse as to the drainage from his leg. About 4 days prior to his readmission to the hospital, he also developed a significant odor to the drainage. He was not having any fevers or chills, but the pain and the drainage were getting much worse, so he went into his doctor's office and the nurse there after examining his wound sent him to the emergency room. He was admitted and has been on IV antibiotics since admission and is back on his Xarelto. I saw him last night and he had a fair amount of necrotic tissue in the medial malleolar ulcer. This was sharply excised using a scalpel with removal of skin and subcutaneous tissues. He appeared to have a good bed of granulating tissue and no deep abscess. I saw him again with the Wound Care Team and some additional necrotic subcutaneous fat was debrided. The infectious process did not appear to extend into the deep tissues. There was no expressible drainage from the deep tissues and the swelling in his leg had significantly improved after another night of elevation. The patient also has some cracks on his heel and forefoot and some healing blisters on his lateral malleolus, all related to his severe swelling. X-rays on admission showed some gas in the medial malleolar ulcer, but no evidence of osteomyelitis. PAST MEDICAL HISTORY: Hyperlipidemia and mild hypertension, not on any medication for these however. He is not diabetic and does not have any history of neuropathy. PAST SURGICAL HISTORY: Sinus surgery, arthroscopy of his right shoulder and surgery on the right 2nd finger. No previous surgery on his leg. FAMILY HISTORY: Noncontributory. He had a grandfather with diabetes and a grandmother with stroke, both in their 60s. SOCIAL HISTORY: The patient drinks beer every day. Does not smoke or use any illicit drugs. He has had adverse drug reactions in the past to clonidine and lisinopril. OUTPATIENT MEDICATIONS: Include Eliquis, although he had stopped taking this prior to his readmission. INPATIENT MEDICATIONS: 1. Eliquis. 2. Prozac. 3. Zofran. 4. Florastor. 5. P[place]n. [place]. 6. Vancomycin, which has been discontinued. REVIEW OF SYSTEMS: Ten system review of systems is negative except per HPI. He states that the swelling in his leg has gone down significantly since his admission. PHYSICAL EXAMINATION: VITAL SIGNS: The patient has been afebrile since his readmission. Heart rate 77, respirations 18, 99% saturated on room air, blood pressure 168/95. GENERAL: Reveals a healthy-appearing man, in no acute distress, who appears his stated age. He is not flushed or toxic in appearance. He is not jaundiced or icteric. HEENT: Unremarkable. NECK: Supple without lymphadenopathy or thyroid nodules. HEART: Regular in its rate and rhythm without murmurs, rubs, or gallops. LUNGS: Clear to auscultation bilaterally. ABDOMEN: Soft, nontender, nondistended. EXTREMITIES: Warm and well perfused with normal dorsal pedal pulses. I cannot really appreciate the posterior tibial pulse on the left due to severe ankle swelling. He has severe swelling of the ankle and calf more than the upper leg. He has some erythema extending up onto the calf. He has a large full-thickness ulceration of the medial malleolus on the left, which has been debrided personally and is now fairly clean. There is a base of granulation tissue and no expressible pus from the deep tissues. The odor has also significantly improved since yesterday. He has some superficial cracks in the heel and forefoot and healing blisters on the lateral malleolus. He has a few areas of superficial ulceration superior to his main ulcer on the medial malleolus. These do not probe to the deep tissues and appear to be involving the skin only. ASSESSMENT: Venous stasis ulcers due to severe lower extremity deep venous thrombosis on the left. Apparently, this all originated from a puncture wound, which led to cellulitis and then the deep venous thrombosis. I think the erythema that the patient has currently is most likely due to his deep venous thrombosis rather than ongoing cellulitis. His vancomycin has been discontinued and I think this is safe. He is still on Zosyn. We are going to do wet-to-dry dressings to the medial malleolus to further mechanically debride it with dressing change. We are using Quarter Strength Dakin's to decrease the bacterial count of the wound, but he should be able to be transitioned to normal saline after the wound cleans up a bit more. We are going to wrap the foot and leg with [place] wraps and continue to elevated it to try to get the swelling down. I think the infection in the wound was just due to the necrotic tissue rather than a necrotizing infection as it appears to be stable since last night, but I will keep an eye on it with the Wound Care Team. He does have a large wound, but is not currently a candidate for skin grafting due to the severe edema in his leg. He will require compression dressings and garments after the wound stabilizes. Job ID: [id number]
--- NOTE | 2018-08-08 22:30 | PDOC.PN ---
- Subjective Encounter Start Date: 08/08/18 Encounter Start Time: 14:00 Patient seen and examined for foot infection. s/p debridement today. No fever/ chills. No new complaints. No overnight events - Objective Resuscitation Status - Order Detail: 08/06/18 20:30 Resuscitation Status Routine Resuscitation Status: FULL: Full Resuscitation MAR Reviewed: Yes Vital Signs & Weight: Vital Signs (12 hours) Temp Pulse Resp BP Pulse Ox 08/08/18 19:50 98.2 F 68 18 130/79 98 Weight Admit Weight 187 lb Weight 187 lb I&O: 08/07/18 08/08/18 08/09/18 06:59 06:59 06:59 Intake Total 2100 4300 Output Total 1500 4750 Balance 600 -450 Result Diagrams: 08/07/18 06:40 08/07/18 06:40 Phys Exam - Physical Examination Constitutional: NAD Respiratory: no wheezing, no rhonchi Cardiovascular: RRR, no rub Gastrointestinal: soft, non-tender, positive bowel sounds Musculoskeletal: edema present foot dressing + Dx/Plan - Plan IMPRESSION: Infected LLE venous ulcer with Cellulitis Recent diagnosis of LLE DVT - on Eliquis Chronic venous stasis Med noncompliance PLAN: Cont Zosyn - switch to Augmentin at dc Cont wound care Ambulate Cont other meds as below Review of Systems - Review of Systems Respiratory: negative: Cough, Dry, Shortness of Breath, Hemoptysis, SOB with Excertion, Pleuritic Pain, Sputum, Wheezing Cardiovascular: negative: chest pain, palpitations, orthopnea, paroxysmal nocturnal dyspnea, edema, light headedness, other Gastrointestinal: negative: Nausea, Vomiting, Abdominal Pain, Diarrhea, Constipation, Melena, Hematochezia, Other - Medications/Allergies Allergies/Adverse Reactions: Allergies Allergy/AdvReac Type Severity Reaction Status Date / Time clonidine Allergy Unknown back pain Verified 07/17/18 00:19 lisinopril Allergy Unknown back pain Verified 07/17/18 00:19 Medications: Current Medications Acetaminophen (Tylenol) 650 mg PO Q4H PRN PRN Reason: Headache/Fever/Mild Pain (1-3) Acetaminophen (Tylenol) 650 mg [place] Q4H PRN PRN Reason: Headache/Fever/Mild Pain (1-3) Hydrocodone Bitart/Acetaminophen ([place] 5/325) 1 tab PO Q4H PRN PRN Reason: Moderate Pain (4-6) Last Admin: 08/08/18 20:09 Dose: 1 tab Apixaban (Eliquis) 5 mg PO BID [facility] Last Admin: 08/08/18 20:09 Dose: 5 mg Fluoxetine HCl (Prozac) 40 mg PO DAILY [facility] Last Admin: 08/08/18 08:07 Dose: 40 mg Piperacillin Sod/Tazobactam (Sod 4.5 gm/ Sodium Chloride) 100 mls @ 200 mls/hr IVPB 0800,1600,2359 [facility] Last Admin: 08/08/18 15:12 Dose: 100 mls Mineral Oil/White Petrolatum (Aquaphor 10 Gm) 0 gm TOP DAILY [facility] Miscellaneous Medication (Pharmacy To Dose) 1 each IVPB PRN PRN PRN Reason: Pharmacy to dose Ondansetron HCl (Zofran Odt) 4 mg PO Q6H PRN PRN Reason: Nausea/Vomiting Ondansetron HCl (Zofran) 4 mg IVP Q6H PRN PRN Reason: Nausea/Vomiting Saccharomyces Boulardii (Florastor) 250 mg PO DAILY [facility] Last Admin: 08/08/18 08:07 Dose: 250 mg Sodium Chloride (Flush - Normal Saline) 10 ml IVF Q12HR [facility] Last Admin: 08/08/18 20:10 Dose: 10 ml Sodium Chloride (Flush - Normal Saline) 10 ml IVF PRN PRN PRN Reason: Saline Flush Sodium Hypochlorite (Dakin's Half Strength 0.25% Solution) 0 ml TOP ASDIR PRN PRN Reason: Wound Care
[2018-08-09] MEDS: Piperacillin/Tazobactam 4.5 GM in Sodium Chloride 0.9% 100 ML IVPB SCH ×3 (00:20→15:40)
[2018-08-09] MEDS: HYDROcodone/Acetaminophen 5/325 mg Tablet PO PRN ×4 (01:25→18:18)
[2018-08-09] MEDS ORDERED: Polyethylene Glycol 3350 17 GM Packet PO PRN (06:38)
[2018-08-09] MEDS ORDERED: Milk Of Magnesia 30 ML UDCUP PO PRN (06:38)
[2018-08-09] MEDS: Saccharomyces boulardii 250 MG CAP PO SCH (07:03)
[2018-08-09] MEDS: Senokot S 8.6-50 MG TAB PO SCH ×2 (07:03→21:38)
[2018-08-09] MEDS: Apixaban 5 MG TAB PO SCH ×2 (07:03→21:38)
[2018-08-09] MEDS: FLUoxetine HCl 20 MG CAP PO SCH (07:04)
[2018-08-09] MEDS: Aquaphor 10 GM TUBE TOP SCH (07:04)
--- NOTE | 2018-08-09 17:20 | PDOC.PN ---
- Subjective Encounter Start Date: 08/09/18 Encounter Start Time: 10:45 Patient seen and examined for infected ulcer/cellulitis. Pain controlled. No fever/N/V. No new complaints. No overnight events - Objective Resuscitation Status - Order Detail: 08/06/18 20:30 Resuscitation Status Routine Resuscitation Status: FULL: Full Resuscitation MAR Reviewed: Yes Vital Signs & Weight: Vital Signs (12 hours) Temp Pulse Resp BP Pulse Ox 08/09/18 08:00 98 08/09/18 07:41 97.9 F 67 19 157/87 H 98 Weight Admit Weight 187 lb Weight 187 lb I&O: 08/08/18 08/09/18 08/10/18 06:59 06:59 06:59 Intake Total 4300 Output Total 4750 Balance -450 Result Diagrams: 08/07/18 06:40 08/07/18 06:40 Phys Exam - Physical Examination Constitutional: NAD Respiratory: no wheezing, no rhonchi Cardiovascular: RRR, no rub Gastrointestinal: soft, non-tender, positive bowel sounds Musculoskeletal: edema present Left foot dressing + Neurological: moves all 4 limbs Dx/Plan - Plan IMPRESSION: Infected LLE venous ulcer with Cellulitis - improving Recent diagnosis of LLE DVT Chronic venous stasis Med noncompliance PLAN: Cont Zosyn Will switch antibiotics to Augmentin at [place] Cont Eliquis CM working on Eliquis assistance Cont wound care Cont other meds as below Review of Systems - Review of Systems Cardiovascular: negative: chest pain, palpitations, orthopnea, paroxysmal nocturnal dyspnea, edema, light headedness, other Gastrointestinal: negative: Nausea, Vomiting, Abdominal Pain, Diarrhea, Constipation, Melena, Hematochezia, Other - Medications/Allergies Allergies/Adverse Reactions: Allergies Allergy/AdvReac Type Severity Reaction Status Date / Time clonidine Allergy Unknown back pain Verified 07/17/18 00:19 lisinopril Allergy Unknown back pain Verified 07/17/18 00:19 Medications: Current Medications Acetaminophen (Tylenol) 650 mg PO Q4H PRN PRN Reason: Headache/Fever/Mild Pain (1-3) Acetaminophen (Tylenol) 650 mg [place] Q4H PRN PRN Reason: Headache/Fever/Mild Pain (1-3) Hydrocodone Bitart/Acetaminophen ([place] 5/325) 1 tab PO Q4H PRN PRN Reason: Moderate Pain (4-6) Last Admin: 08/09/18 12:23 Dose: 1 tab Apixaban (Eliquis) 5 mg PO BID [facility] Last Admin: 08/09/18 07:03 Dose: 5 mg Fluoxetine HCl (Prozac) 40 mg PO DAILY [facility] Last Admin: 08/09/18 07:04 Dose: 40 mg Piperacillin Sod/Tazobactam (Sod 4.5 gm/ Sodium Chloride) 100 mls @ 200 mls/hr IVPB 0800,1600,2359 [facility] Last Admin: 08/09/18 15:40 Dose: 100 mls Magnesium Hydroxide (Milk Of Magnesium) 30 ml PO DAILYPRN PRN PRN Reason: Constipation Mineral Oil/White Petrolatum (Aquaphor 10 Gm) 0 gm TOP DAILY [facility] Last Admin: 08/09/18 07:04 Dose: Not Given Miscellaneous Medication (Pharmacy To Dose) 1 each IVPB PRN PRN PRN Reason: Pharmacy to dose Ondansetron HCl (Zofran Odt) 4 mg PO Q6H PRN PRN Reason: Nausea/Vomiting Ondansetron HCl (Zofran) 4 mg IVP Q6H PRN PRN Reason: Nausea/Vomiting Polyethylene Glycol (Miralax) 17 gm PO DAILY PRN PRN Reason: Constipation Saccharomyces Boulardii (Florastor) 250 mg PO DAILY [facility] Last Admin: 08/09/18 07:03 Dose: 250 mg Senna/Docusate Sodium (Senokot S) 1 tab PO BID [facility] Last Admin: 08/09/18 07:03 Dose: 1 tab Sodium Chloride (Flush - Normal Saline) 10 ml IVF Q12HR [facility] Last Admin: 08/09/18 07:04 Dose: 10 ml Sodium Chloride (Flush - Normal Saline) 10 ml IVF PRN PRN PRN Reason: Saline Flush Sodium Hypochlorite (Dakin's Half Strength 0.25% Solution) 0 ml TOP ASDIR PRN PRN Reason: Wound Care
[2018-08-10] MEDS: HYDROcodone/Acetaminophen 5/325 mg Tablet PO PRN ×5 (00:25→23:44)
[2018-08-10] MEDS: Piperacillin/Tazobactam 4.5 GM in Sodium Chloride 0.9% 100 ML IVPB SCH ×4 (00:27→23:42)
[2018-08-10] MEDS: Saccharomyces boulardii 250 MG CAP PO SCH (07:35)
[2018-08-10] MEDS: Apixaban 5 MG TAB PO SCH ×2 (07:36→19:43)
[2018-08-10] MEDS: Senokot S 8.6-50 MG TAB PO SCH ×2 (07:37→19:44)
[2018-08-10] MEDS: FLUoxetine HCl 20 MG CAP PO SCH (07:37)
[2018-08-10] MEDS: Loratadine 10 MG TAB PO PRN (11:58)
[2018-08-10] MEDS: Aquaphor 10 GM TUBE TOP SCH (13:39)
[2018-08-10] MEDS ORDERED: HYDROcodone/Acetaminophen 5/325 mg Tablet PO SCH (14:15)
--- NOTE | 2018-08-10 21:40 | PDOC.PN ---
- Subjective Encounter Start Date: 08/10/18 Encounter Start Time: 10:30 Patient seen and examined for infected ulcer. Pain controlled. No new complaints. No overnight events - Objective Resuscitation Status - Order Detail: 08/06/18 20:30 Resuscitation Status Routine Resuscitation Status: FULL: Full Resuscitation MAR Reviewed: Yes Vital Signs & Weight: Vital Signs (12 hours) Temp Pulse Resp BP Pulse Ox 08/10/18 20:00 97.9 F 67 16 149/86 H 97 Weight Admit Weight 187 lb Weight 187 lb I&O: 08/09/18 08/10/18 08/11/18 06:59 06:59 06:59 Intake Total 1400 Output Total 700 600 Balance -700 800 Result Diagrams: 08/07/18 06:40 08/07/18 06:40 Phys Exam - Physical Examination Constitutional: NAD Respiratory: no wheezing, no rhonchi Cardiovascular: RRR, no rub Gastrointestinal: soft, non-tender, positive bowel sounds Musculoskeletal: no edema Neurological: moves all 4 limbs Dx/Plan - Plan DVT proph w/SCDs IMPRESSION: Infected LLE venous ulcer with Cellulitis - on IV Zosyn Recent diagnosis of LLE DVT Chronic venous stasis Med noncompliance PLAN: Cont Zosyn - Augmentin at dc Cont wound care Cont Eliquis Patient requires Eliquis assistance Cont other meds as below Review of Systems - Review of Systems Respiratory: negative: Cough, Dry, Shortness of Breath, Hemoptysis, SOB with Excertion, Pleuritic Pain, Sputum, Wheezing Cardiovascular: negative: chest pain, palpitations, orthopnea, paroxysmal nocturnal dyspnea, edema, light headedness, other Gastrointestinal: negative: Nausea, Vomiting, Abdominal Pain, Diarrhea, Constipation, Melena, Hematochezia, Other - Medications/Allergies Allergies/Adverse Reactions: Allergies Allergy/AdvReac Type Severity Reaction Status Date / Time clonidine Allergy Unknown back pain Verified 07/17/18 00:19 lisinopril Allergy Unknown back pain Verified 07/17/18 00:19 Medications: Current Medications Acetaminophen (Tylenol) 650 mg PO Q4H PRN PRN Reason: Headache/Fever/Mild Pain (1-3) Acetaminophen (Tylenol) 650 mg [place] Q4H PRN PRN Reason: Headache/Fever/Mild Pain (1-3) Hydrocodone Bitart/Acetaminophen ([place] 5/325) 1 tab PO Q4H PRN PRN Reason: Moderate Pain (4-6) Last Admin: 08/10/18 19:44 Dose: 1 tab Apixaban (Eliquis) 5 mg PO BID [facility] Last Admin: 08/10/18 19:43 Dose: 5 mg Fluoxetine HCl (Prozac) 40 mg PO DAILY [facility] Last Admin: 08/10/18 07:37 Dose: 40 mg Piperacillin Sod/Tazobactam (Sod 4.5 gm/ Sodium Chloride) 100 mls @ 200 mls/hr IVPB 0800,1600,2359 [facility] Last Admin: 08/10/18 16:12 Dose: 100 mls Loratadine (Claritin) 10 mg PO DAILYPRN PRN PRN Reason: Sinus Symptoms Last Admin: 08/10/18 11:58 Dose: 10 mg Magnesium Hydroxide (Milk Of Magnesium) 30 ml PO DAILYPRN PRN PRN Reason: Constipation Mineral Oil/White Petrolatum (Aquaphor 99 Gm) 0 gm TOP DAILY [facility] Miscellaneous Medication (Pharmacy To Dose) 1 each IVPB PRN PRN PRN Reason: Pharmacy to dose Ondansetron HCl (Zofran Odt) 4 mg PO Q6H PRN PRN Reason: Nausea/Vomiting Ondansetron HCl (Zofran) 4 mg IVP Q6H PRN PRN Reason: Nausea/Vomiting Polyethylene Glycol (Miralax) 17 gm PO DAILY PRN PRN Reason: Constipation Saccharomyces Boulardii (Florastor) 250 mg PO DAILY [facility] Last Admin: 08/10/18 07:35 Dose: 250 mg Senna/Docusate Sodium (Senokot S) 1 tab PO BID [facility] Last Admin: 08/10/18 19:44 Dose: 1 tab Sodium Chloride (Flush - Normal Saline) 10 ml IVF Q12HR [facility] Last Admin: 08/10/18 19:45 Dose: 10 ml Sodium Chloride (Flush - Normal Saline) 10 ml IVF PRN PRN PRN Reason: Saline Flush Last Admin: 08/10/18 16:12 Dose: 10 ml Sodium Hypochlorite (Dakin's Half Strength 0.25% Solution) 0 ml TOP ASDIR PRN PRN Reason: Wound Care
[2018-08-11] MEDS: HYDROcodone/Acetaminophen 5/325 mg Tablet PO PRN ×4 (05:02→21:33)
[2018-08-11] MEDS: Apixaban 5 MG TAB PO SCH ×2 (08:25→21:32)
[2018-08-11] MEDS: FLUoxetine HCl 20 MG CAP PO SCH (08:25)
[2018-08-11] MEDS: Piperacillin/Tazobactam 4.5 GM in Sodium Chloride 0.9% 100 ML IVPB SCH ×2 (08:25→15:39)
[2018-08-11] MEDS: Saccharomyces boulardii 250 MG CAP PO SCH (08:25)
[2018-08-11] MEDS: Senokot S 8.6-50 MG TAB PO SCH ×2 (08:26→21:32)
[2018-08-11] MEDS: Loratadine 10 MG TAB PO PRN (09:27)
--- NOTE | 2018-08-11 15:26 | PRG ---
DATE OF SERVICE: 08/11/2018 SUBJECTIVE: Mr. 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 He is not having much pain. No respiratory symptoms, abdominal pain, or diarrhea. OBJECTIVE: VITAL SIGNS: His temperature has been normal. Other vital signs are fairly unremarkable. LUNGS: Clear. HEART: S1 and S2, regular rate. ABDOMEN: Soft, not distended. We do not have an update in the wound status, but apparently the wound care people were here today and it looks like the wound appearance is improved, but we will have to discuss with wound care. ASSESSMENT AND DISCUSSION: Extensive deep venous thrombosis, postphlebitic syndrome, and venous ulcer medial aspect of the left leg, status post debridement. Continue with wound management. Antimicrobial therapy has only ancillary role here and should not need to be continued for protracted period of time. By the time he gets discharged, he should be able to be transitioned to oral antimicrobials probably Augmentin. The duration of therapy just for few days. The main issue here is his personal issues, financial difficulties, and some other issues that he has that will interfere with his ability to comply with the oral medication and wound care. Job ID: [id number]
[2018-08-11] MEDS: Acetaminophen 325 MG TAB PO PRN (16:18)
--- NOTE | 2018-08-11 20:03 | PDOC.PN ---
- Subjective Encounter Start Date: 08/11/18 Encounter Start Time: 11:00 Patient seen and examined for foot infection. No new complaints. No overnight events - Objective Resuscitation Status - Order Detail: 08/06/18 20:30 Resuscitation Status Routine Resuscitation Status: FULL: Full Resuscitation MAR Reviewed: Yes Vital Signs & Weight: Vital Signs (12 hours) Pulse Ox 08/11/18 08:23 100 Weight Admit Weight 187 lb Weight 187 lb I&O: 08/10/18 08/11/18 08/12/18 06:59 06:59 06:59 Intake Total 1989 1300 Output Total 722 467 3499 Balance -700 1390 300 Result Diagrams: 08/07/18 06:40 08/07/18 06:40 Phys Exam - Physical Examination Constitutional: NAD Respiratory: no wheezing, no rhonchi Cardiovascular: RRR, no rub Gastrointestinal: soft, non-tender, positive bowel sounds Musculoskeletal: edema present (left LE) foot dressing + Dx/Plan - 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: Infected LLE venous ulcer with Cellulitis - on IV Zosyn Recent diagnosis of LLE DVT Chronic venous stasis Med noncompliance PLAN: Cont Zosyn - Augmentin at dc for few days per ID Cont wound care Cont Eliquis Patient requires Eliquis assistance Cont other meds as below DC when ok with gen surg Review of Systems - Review of Systems Constitutional: negative: fever, chills, sweats, weakness, malaise, other Respiratory: negative: Cough, Dry, Shortness of Breath, Hemoptysis, SOB with Excertion, Pleuritic Pain, Sputum, Wheezing Cardiovascular: negative: chest pain, palpitations, orthopnea, paroxysmal nocturnal dyspnea, edema, light headedness, other - Medications/Allergies Allergies/Adverse Reactions: Allergies Allergy/AdvReac Type Severity Reaction Status Date / Time clonidine Allergy Unknown back pain Verified 07/17/18 00:19 lisinopril Allergy Unknown back pain Verified 07/17/18 00:19 Medications: Current Medications Acetaminophen (Tylenol) 650 mg PO Q4H PRN PRN Reason: Headache/Fever/Mild Pain (1-3) Last Admin: 08/11/18 16:18 Dose: 650 mg Acetaminophen (Tylenol) 650 mg [place] Q4H PRN PRN Reason: Headache/Fever/Mild Pain (1-3) Hydrocodone Bitart/Acetaminophen ([place] 5/325) 1 tab PO Q4H PRN PRN Reason: Moderate Pain (4-6) Last Admin: 08/11/18 15:37 Dose: 1 tab Apixaban (Eliquis) 5 mg PO BID [facility] Last Admin: 08/11/18 08:25 Dose: 5 mg Fluoxetine HCl (Prozac) 40 mg PO DAILY [facility] Last Admin: 08/11/18 08:25 Dose: 40 mg Piperacillin Sod/Tazobactam (Sod 4.5 gm/ Sodium Chloride) 100 mls @ 200 mls/hr IVPB 0800,1600,2359 [facility] Last Admin: 08/11/18 15:39 Dose: 100 mls Loratadine (Claritin) 10 mg PO DAILYPRN PRN PRN Reason: Sinus Symptoms Stop: 08/11/18 23:59 Last Admin: 08/11/18 09:27 Dose: 10 mg Loratadine (Claritin) 10 mg PO DAILY [facility] Magnesium Hydroxide (Milk Of Magnesium) 30 ml PO DAILYPRN PRN PRN Reason: Constipation Mineral Oil/White Petrolatum (Aquaphor 99 Gm) 0 gm TOP DAILY [facility] Last Admin: 08/11/18 10:00 Dose: 1 applic Miscellaneous Medication (Pharmacy To Dose) 1 each IVPB PRN PRN PRN Reason: Pharmacy to dose Ondansetron HCl (Zofran Odt) 4 mg PO Q6H PRN PRN Reason: Nausea/Vomiting Ondansetron HCl (Zofran) 4 mg IVP Q6H PRN PRN Reason: Nausea/Vomiting Polyethylene Glycol (Miralax) 17 gm PO DAILY PRN PRN Reason: Constipation Saccharomyces Boulardii (Florastor) 250 mg PO DAILY [facility] Last Admin: 08/11/18 08:25 Dose: 250 mg Senna/Docusate Sodium (Senokot S) 1 tab PO BID [facility] Last Admin: 08/11/18 08:26 Dose: 1 tab Sodium Chloride (Flush - Normal Saline) 10 ml IVF Q12HR [facility] Last Admin: 08/11/18 08:26 Dose: 10 ml Sodium Chloride (Flush - Normal Saline) 10 ml IVF PRN PRN PRN Reason: Saline Flush Last Admin: 08/10/18 16:12 Dose: 10 ml Sodium Hypochlorite (Dakin's Half Strength 0.25% Solution) 0 ml TOP ASDIR PRN PRN Reason: Wound Care
[2018-08-12] MEDS: Piperacillin/Tazobactam 4.5 GM in Sodium Chloride 0.9% 100 ML IVPB SCH ×3 (00:03→15:42)
[2018-08-12] MEDS: HYDROcodone/Acetaminophen 5/325 mg Tablet PO PRN ×4 (05:32→20:30)
[2018-08-12] MEDS: Senokot S 8.6-50 MG TAB PO SCH ×2 (08:49→20:31)
[2018-08-12] MEDS: FLUoxetine HCl 20 MG CAP PO SCH (08:49)
[2018-08-12] MEDS: Saccharomyces boulardii 250 MG CAP PO SCH (08:49)
[2018-08-12] MEDS: Apixaban 5 MG TAB PO SCH ×2 (08:49→20:31)
[2018-08-12] MEDS: Loratadine 10 MG TAB PO SCH (08:49)
--- NOTE | 2018-08-12 18:06 | PDOC.PN ---
- Subjective Encounter Start Date: 08/12/18 Encounter Start Time: 11:00 Pt seen for followup re: left ankle wound. Says he feels better. - Objective Resuscitation Status - Order Detail: 08/06/18 20:30 Resuscitation Status Routine Resuscitation Status: FULL: Full Resuscitation MAR Reviewed: Yes Vital Signs & Weight: Vital Signs (12 hours) Temp Pulse Resp BP Pulse Ox 08/12/18 08:00 96 08/12/18 07:50 98.2 F 102 H 20 133/86 96 Weight Admit Weight 187 lb Weight 187 lb I&O: 08/11/18 08/12/18 08/13/18 06:59 06:59 06:59 Intake Total 1989 1890 840 Output Total 600 1800 Balance 1390 90 840 Result Diagrams: 08/07/18 06:40 08/07/18 06:40 Additional Labs: Labs reviewed by me Phys Exam - Physical Examination Constitutional: NAD HEENT: moist MMs Neck: supple Respiratory: clear to auscultation bilateral Cardiovascular: RRR Gastrointestinal: soft Neurological: moves all 4 limbs Psychiatric: normal affect Deviation from normal: wound as documented Dx/Plan (1) Leg wound, left Code(s): S81.802A - UNSPECIFIED OPEN WOUND, LEFT LOWER LEG, INITIAL ENCOUNTER Status: Acute Comment: continue IV Zosyn (2) Deep vein thrombosis (DVT) of left lower extremity Code(s): I82.402 - ACUTE EMBOLISM AND THOMBOS UNSP DEEP VEINS OF L LOW EXTREM Status: Chronic Qualifiers: Comment: continue apixaban - Plan * . Review of Systems - Review of Systems Cardiovascular: negative: chest pain, palpitations, orthopnea, paroxysmal nocturnal dyspnea, edema, light headedness Gastrointestinal: negative: Nausea, Vomiting, Abdominal Pain, Diarrhea, Constipation, Melena, Hematochezia - Medications/Allergies Allergies/Adverse Reactions: Allergies Allergy/AdvReac Type Severity Reaction Status Date / Time clonidine Allergy Unknown back pain Verified 07/17/18 00:19 lisinopril Allergy Unknown back pain Verified 07/17/18 00:19 Medications: Current Medications Acetaminophen (Tylenol) 650 mg PO Q4H PRN PRN Reason: Headache/Fever/Mild Pain (1-3) Last Admin: 08/11/18 16:18 Dose: 650 mg Acetaminophen (Tylenol) 650 mg [place] Q4H PRN PRN Reason: Headache/Fever/Mild Pain (1-3) Hydrocodone Bitart/Acetaminophen ([place] 5/325) 1 tab PO Q4H PRN PRN Reason: Moderate Pain (4-6) Last Admin: 08/12/18 14:28 Dose: 1 tab Apixaban (Eliquis) 5 mg PO BID [facility] Last Admin: 08/12/18 08:49 Dose: 5 mg Fluoxetine HCl (Prozac) 40 mg PO DAILY [facility] Last Admin: 08/12/18 08:49 Dose: 40 mg Piperacillin Sod/Tazobactam (Sod 4.5 gm/ Sodium Chloride) 100 mls @ 200 mls/hr IVPB 0800,1600,2359 [facility] Last Admin: 08/12/18 15:42 Dose: 100 mls Loratadine (Claritin) 10 mg PO DAILY [facility] Last Admin: 08/12/18 08:49 Dose: 10 mg Magnesium Hydroxide (Milk Of Magnesium) 30 ml PO DAILYPRN PRN PRN Reason: Constipation Mineral Oil/White Petrolatum (Aquaphor 99 Gm) 0 gm TOP DAILY [facility] Last Admin: 08/12/18 08:49 Dose: 1 applic Miscellaneous Medication (Pharmacy To Dose) 1 each IVPB PRN PRN PRN Reason: Pharmacy to dose Ondansetron HCl (Zofran Odt) 4 mg PO Q6H PRN PRN Reason: Nausea/Vomiting Ondansetron HCl (Zofran) 4 mg IVP Q6H PRN PRN Reason: Nausea/Vomiting Polyethylene Glycol (Miralax) 17 gm PO DAILY PRN PRN Reason: Constipation Saccharomyces Boulardii (Florastor) 250 mg PO DAILY [facility] Last Admin: 08/12/18 08:49 Dose: 250 mg Senna/Docusate Sodium (Senokot S) 1 tab PO BID [facility] Last Admin: 08/12/18 08:49 Dose: 1 tab Sodium Chloride (Flush - Normal Saline) 10 ml IVF Q12HR [facility] Last Admin: 08/12/18 08:50 Dose: 10 ml Sodium Chloride (Flush - Normal Saline) 10 ml IVF PRN PRN PRN Reason: Saline Flush Last Admin: 08/10/18 16:12 Dose: 10 ml Sodium Hypochlorite (Dakin's Half Strength 0.25% Solution) 0 ml TOP ASDIR PRN PRN Reason: Wound Care
--- NOTE | 2018-08-12 21:56 | PDOC.GSPN ---
Surgery Progress Note: Subj - Subjective Narrative: Patient has no complaints. His wound looks good. Has a good clean granulating base. I am concerned that his ankle is still quite swollen. His forefoot and calf have both gone down but the ankle remains quite large. There is no expressible drainage from the wound nor from the opposite side ulceration on the ankle. No pitting edema. If this does not improve then MRI may be prudent to rule out occult, deep infection. If he continues to improve however, he may be ready for discharge soon. Surgery Progress Note: Obj - Vital signs Vital signs: Vital Signs - Most Recent Temp Pulse Resp BP Pulse Ox 97.5 F L 68 18 123/76 98 08/12/18 20:00 08/12/18 20:00 08/12/18 20:00 08/12/18 20:00 08/12/18 20:00 Surgery Progress Note: Results - Labs Result Diagrams: 08/07/18 06:40 08/07/18 06:40
[2018-08-13] MEDS: Piperacillin/Tazobactam 4.5 GM in Sodium Chloride 0.9% 100 ML IVPB SCH ×4 (00:47→22:33)
[2018-08-13] MEDS: HYDROcodone/Acetaminophen 5/325 mg Tablet PO PRN ×5 (00:52→22:32)
[2018-08-13] MEDS: Senokot S 8.6-50 MG TAB PO SCH ×2 (08:00→21:10)
[2018-08-13] MEDS: Loratadine 10 MG TAB PO SCH (08:00)
[2018-08-13] MEDS: Apixaban 5 MG TAB PO SCH ×2 (08:00→21:10)
[2018-08-13] MEDS: FLUoxetine HCl 20 MG CAP PO SCH (08:00)
[2018-08-13] MEDS: Saccharomyces boulardii 250 MG CAP PO SCH (08:00)
--- NOTE | 2018-08-13 16:26 | PDOC.PN ---
- Subjective Encounter Start Date: 08/13/18 Encounter Start Time: 09:40 Pt seen for followup re: leg wound. Feels better, ambulating. - Objective Resuscitation Status - Order Detail: 08/06/18 20:30 Resuscitation Status Routine Resuscitation Status: FULL: Full Resuscitation MAR Reviewed: Yes Vital Signs & Weight: Vital Signs (12 hours) Temp Pulse Resp BP Pulse Ox 08/13/18 08:00 97.8 F 71 20 138/65 98 Weight Admit Weight 187 lb Weight 187 lb I&O: 08/12/18 08/13/18 08/14/18 06:59 06:59 06:59 Intake Total 1890 1910 600 Output Total 1800 Balance 90 1910 600 Result Diagrams: 08/07/18 06:40 08/07/18 06:40 Additional Labs: labs reviewed by me Phys Exam - Physical Examination Constitutional: NAD HEENT: sclera anicteric Neck: no JVD Respiratory: clear to auscultation bilateral Cardiovascular: no rub Gastrointestinal: non-tender Neurological: moves all 4 limbs Psychiatric: normal affect Dx/Plan (1) Leg wound, left Code(s): S81.802A - UNSPECIFIED OPEN WOUND, LEFT LOWER LEG, INITIAL ENCOUNTER Status: Acute Comment: on IV Zosyn, will continue (2) Deep vein thrombosis (DVT) of left lower extremity Code(s): I82.402 - ACUTE EMBOLISM AND THOMBOS UNSP DEEP VEINS OF L LOW EXTREM Status: Chronic Qualifiers: Comment: continue apixaban - Plan * . Review of Systems - Review of Systems Gastrointestinal: negative: Nausea, Vomiting, Abdominal Pain, Diarrhea, Constipation, Melena, Hematochezia Genitourinary: negative: Dysuria, Frequency, Incontinence, Hematuria, Retention - Medications/Allergies Allergies/Adverse Reactions: Allergies Allergy/AdvReac Type Severity Reaction Status Date / Time clonidine Allergy Unknown back pain Verified 07/17/18 00:19 lisinopril Allergy Unknown back pain Verified 07/17/18 00:19 Medications: Current Medications Acetaminophen (Tylenol) 650 mg PO Q4H PRN PRN Reason: Headache/Fever/Mild Pain (1-3) Last Admin: 08/11/18 16:18 Dose: 650 mg Acetaminophen (Tylenol) 650 mg [place] Q4H PRN PRN Reason: Headache/Fever/Mild Pain (1-3) Hydrocodone Bitart/Acetaminophen ([place] 5/325) 1 tab PO Q4H PRN PRN Reason: Moderate Pain (4-6) Last Admin: 08/13/18 12:11 Dose: 1 tab Apixaban (Eliquis) 5 mg PO BID [facility] Last Admin: 08/13/18 08:00 Dose: 5 mg Fluoxetine HCl (Prozac) 40 mg PO DAILY [facility] Last Admin: 08/13/18 08:00 Dose: 40 mg Piperacillin Sod/Tazobactam (Sod 4.5 gm/ Sodium Chloride) 100 mls @ 200 mls/hr IVPB 0800,1600,2359 [facility] Last Admin: 08/13/18 15:53 Dose: 100 mls Loratadine (Claritin) 10 mg PO DAILY [facility] Last Admin: 08/13/18 08:00 Dose: 10 mg Magnesium Hydroxide (Milk Of Magnesium) 30 ml PO DAILYPRN PRN PRN Reason: Constipation Mineral Oil/White Petrolatum (Aquaphor 99 Gm) 0 gm TOP DAILY [facility] Last Admin: 08/13/18 08:01 Dose: 1 applic Miscellaneous Medication (Pharmacy To Dose) 1 each IVPB PRN PRN PRN Reason: Pharmacy to dose Ondansetron HCl (Zofran Odt) 4 mg PO Q6H PRN PRN Reason: Nausea/Vomiting Ondansetron HCl (Zofran) 4 mg IVP Q6H PRN PRN Reason: Nausea/Vomiting Polyethylene Glycol (Miralax) 17 gm PO DAILY PRN PRN Reason: Constipation Saccharomyces Boulardii (Florastor) 250 mg PO DAILY [facility] Last Admin: 08/13/18 08:00 Dose: 250 mg Senna/Docusate Sodium (Senokot S) 1 tab PO BID [facility] Last Admin: 08/13/18 08:00 Dose: 1 tab Sodium Chloride (Flush - Normal Saline) 10 ml IVF Q12HR [facility] Last Admin: 08/13/18 08:01 Dose: 10 ml Sodium Chloride (Flush - Normal Saline) 10 ml IVF PRN PRN PRN Reason: Saline Flush Last Admin: 08/10/18 16:12 Dose: 10 ml Sodium Hypochlorite (Dakin's Half Strength 0.25% Solution) 0 ml TOP ASDIR PRN PRN Reason: Wound Care
[2018-08-14] MEDS: HYDROcodone/Acetaminophen 5/325 mg Tablet PO PRN ×4 (04:25→18:23)
[2018-08-14] MEDS: Saccharomyces boulardii 250 MG CAP PO SCH (08:28)
[2018-08-14] MEDS: Senokot S 8.6-50 MG TAB PO SCH ×2 (08:29→20:16)
[2018-08-14] MEDS: FLUoxetine HCl 20 MG CAP PO SCH (08:29)
[2018-08-14] MEDS: Piperacillin/Tazobactam 4.5 GM in Sodium Chloride 0.9% 100 ML IVPB SCH ×2 (08:29→15:53)
[2018-08-14] MEDS: Loratadine 10 MG TAB PO SCH (08:29)
[2018-08-14] MEDS: Apixaban 5 MG TAB PO SCH ×2 (08:29→20:16)
--- NOTE | 2018-08-14 15:31 | PDOC.GSPN ---
Surgery Progress Note: Subj - Subjective Narrative: Wound looks good. We're going to place an irrigating VAC on it. Ankle is still quite swollen but the rest of the swelling in his foot and leg have improved. Surgery Progress Note: Obj - Vital signs Vital signs: Vital Signs - Most Recent Temp Pulse Resp BP Pulse Ox 98.0 F 70 20 127/77 99 08/14/18 08:00 08/14/18 08:00 08/14/18 08:00 08/14/18 08:00 08/14/18 08:39 Surgery Progress Note: Results - Labs Result Diagrams: 08/07/18 06:40 08/07/18 06:40
--- NOTE | 2018-08-14 17:37 | PRG ---
DATE OF SERVICE: 08/14/2018 SUBJECTIVE: Mr. Urena still upset with the fact that [employer] is not paying him. He has been walking around, feeling better. No respiratory symptoms or abdominal pain. No diarrhea. Left foot pain. OBJECTIVE: VITAL SIGNS: Essentially normal, awake, alert, and oriented. LUNGS: Clear. ABDOMEN: Soft, not distended. EXTREMITIES: Right ankle wound with marked improvement with islands of granulation tissue now visible. There is some undermining at 11 or 12 o'clock. ASSESSMENT AND DISCUSSION: Extensive deep venous thrombosis with postphlebitic syndrome and venous ulcer medial aspect of left leg with improvement in the appearance. At this point, we would recommend discontinuation of antimicrobial therapy and continue wound care only with compressive dressings. Job ID: [id number]
--- NOTE | 2018-08-14 17:54 | PDOC.PN ---
- Subjective Encounter Start Date: 08/14/18 Encounter Start Time: 11:20 Pt seen for followup re: leg wound. Says he feels better. - Objective Resuscitation Status - Order Detail: 08/06/18 20:30 Resuscitation Status Routine Resuscitation Status: FULL: Full Resuscitation MAR Reviewed: Yes Vital Signs & Weight: Vital Signs (12 hours) Temp Pulse Resp BP Pulse Ox 08/14/18 08:39 99 08/14/18 08:00 98.0 F 70 20 127/77 99 Weight Admit Weight 187 lb Weight 184 lb 4 oz I&O: 08/13/18 08/14/18 08/15/18 06:59 06:59 06:59 Intake Total 1910 960 Balance 1910 960 Result Diagrams: 08/07/18 06:40 08/07/18 06:40 Additional Labs: Labs reviewed by me Phys Exam - Physical Examination Constitutional: NAD HEENT: moist MMs Neck: supple Respiratory: no wheezing, no rales Cardiovascular: RRR, no rub Gastrointestinal: soft Neurological: moves all 4 limbs Psychiatric: normal affect Deviation from normal: left leg wound vac Dx/Plan (1) Leg wound, left Code(s): S81.802A - UNSPECIFIED OPEN WOUND, LEFT LOWER LEG, INITIAL ENCOUNTER Status: Acute Comment: pt has wound vac, antibiotics have been discontinued (2) Deep vein thrombosis (DVT) of left lower extremity Code(s): I82.402 - ACUTE EMBOLISM AND THOMBOS UNSP DEEP VEINS OF L LOW EXTREM Status: Chronic Qualifiers: Comment: continue apixaban, pt awaiting approval from patient assistance program - Plan * . Review of Systems - Review of Systems Gastrointestinal: negative: Nausea, Vomiting, Abdominal Pain, Diarrhea, Constipation, Melena, Hematochezia Genitourinary: negative: Dysuria, Frequency, Incontinence, Hematuria, Retention - Medications/Allergies Allergies/Adverse Reactions: Allergies Allergy/AdvReac Type Severity Reaction Status Date / Time clonidine Allergy Unknown back pain Verified 07/17/18 00:19 lisinopril Allergy Unknown back pain Verified 07/17/18 00:19 Medications: Current Medications Acetaminophen (Tylenol) 650 mg PO Q4H PRN PRN Reason: Headache/Fever/Mild Pain (1-3) Last Admin: 08/11/18 16:18 Dose: 650 mg Acetaminophen (Tylenol) 650 mg [place] Q4H PRN PRN Reason: Headache/Fever/Mild Pain (1-3) Hydrocodone Bitart/Acetaminophen ([place] 5/325) 1 tab PO Q4H PRN PRN Reason: Moderate Pain (4-6) Last Admin: 08/14/18 13:51 Dose: 1 tab Apixaban (Eliquis) 5 mg PO BID [facility] Last Admin: 08/14/18 08:29 Dose: 5 mg Fluoxetine HCl (Prozac) 40 mg PO DAILY [facility] Last Admin: 08/14/18 08:29 Dose: 40 mg Loratadine (Claritin) 10 mg PO DAILY [facility] Last Admin: 08/14/18 08:29 Dose: 10 mg Magnesium Hydroxide (Milk Of Magnesium) 30 ml PO DAILYPRN PRN PRN Reason: Constipation Mineral Oil/White Petrolatum (Aquaphor 99 Gm) 0 gm TOP DAILY [facility] Last Admin: 08/14/18 08:31 Dose: 1 applic Miscellaneous Medication (Pharmacy To Dose) 1 each IVPB PRN PRN PRN Reason: Pharmacy to dose Ondansetron HCl (Zofran Odt) 4 mg PO Q6H PRN PRN Reason: Nausea/Vomiting Ondansetron HCl (Zofran) 4 mg IVP Q6H PRN PRN Reason: Nausea/Vomiting Polyethylene Glycol (Miralax) 17 gm PO DAILY PRN PRN Reason: Constipation Saccharomyces Boulardii (Florastor) 250 mg PO DAILY [facility] Last Admin: 08/14/18 08:28 Dose: 250 mg Senna/Docusate Sodium (Senokot S) 1 tab PO BID [facility] Last Admin: 08/14/18 08:29 Dose: 1 tab Sodium Chloride (Flush - Normal Saline) 10 ml IVF Q12HR [facility] Last Admin: 08/14/18 08:31 Dose: 10 ml Sodium Chloride (Flush - Normal Saline) 10 ml IVF PRN PRN PRN Reason: Saline Flush Last Admin: 08/14/18 15:56 Dose: 10 ml Sodium Hypochlorite (Dakin's Half Strength 0.25% Solution) 0 ml TOP ASDIR PRN PRN Reason: Wound Care
[2018-08-14] MEDS ORDERED: HYDROcodone/Acetaminophen 5/325 mg Tablet ONE (22:30)
[2018-08-15] MEDS ORDERED: HYDROcodone/Acetaminophen 5/325 mg Tablet ONE ×2 (03:18→08:22)
[2018-08-15] MEDS ORDERED: Apixaban 5 MG TAB ONE (08:23)
[2018-08-15] MEDS ORDERED: Saccharomyces boulardii 250 MG CAP ONE (08:23)
[2018-08-15] MEDS ORDERED: FLUoxetine HCl 20 MG CAP ONE (08:23)
[2018-08-15] MEDS ORDERED: Senokot S 8.6-50 MG TAB ONE (08:23)
[2018-08-15] MEDS ORDERED: Loratadine 10 MG TAB ONE (08:23)
[2018-08-15] MEDS: Apixaban 5 MG TAB PO SCH ×2 (08:30→21:09)
[2018-08-15] MEDS: Loratadine 10 MG TAB PO SCH (08:30)
[2018-08-15] MEDS: FLUoxetine HCl 20 MG CAP PO SCH (08:30)
[2018-08-15] MEDS: Saccharomyces boulardii 250 MG CAP PO SCH (08:40)
[2018-08-15] MEDS: Senokot S 8.6-50 MG TAB PO SCH ×2 (08:40→21:09)
[2018-08-15] MEDS: HYDROcodone/Acetaminophen 5/325 mg Tablet PO PRN ×3 (12:42→21:09)
[2018-08-15 14:11] VITALS: BMI 23.0
--- NOTE | 2018-08-15 16:47 | PDOC.PN ---
- Subjective Encounter Start Date: 08/15/18 Encounter Start Time: 10:40 Pt seen for followup re: leg wound. Feels better. - Objective Resuscitation Status - Order Detail: 08/06/18 20:30 Resuscitation Status Routine Resuscitation Status: FULL: Full Resuscitation MAR Reviewed: Yes Vital Signs & Weight: Vital Signs (12 hours) Temp Pulse Resp BP Pulse Ox 08/15/18 08:00 98.3 F 69 18 122/81 97 Weight Admit Weight 187 lb Weight 184 lb 4 oz I&O: 08/14/18 08/15/18 08/16/18 06:59 06:59 06:59 Intake Total 960 2700 Output Total 2800 Balance 960 -100 Result Diagrams: 08/07/18 06:40 08/07/18 06:40 Additional Labs: Labs reviewed by me Phys Exam - Physical Examination Constitutional: NAD HEENT: moist MMs Neck: supple Respiratory: clear to auscultation bilateral Cardiovascular: RRR Gastrointestinal: soft Neurological: moves all 4 limbs Psychiatric: normal affect Deviation from normal: wound irrigation Dx/Plan (1) Leg wound, left Code(s): S81.802A - UNSPECIFIED OPEN WOUND, LEFT LOWER LEG, INITIAL ENCOUNTER Status: Acute Comment: pt has wound neck pinner (2) Deep vein thrombosis (DVT) of left lower extremity Code(s): I82.402 - ACUTE EMBOLISM AND THOMBOS UNSP DEEP VEINS OF L LOW EXTREM Status: Chronic Qualifiers: Comment: continue apixaban - Plan * . Review of Systems - Review of Systems Gastrointestinal: negative: Nausea, Vomiting, Abdominal Pain, Diarrhea, Constipation, Melena, Hematochezia Genitourinary: negative: Dysuria, Frequency, Incontinence, Hematuria, Retention - Medications/Allergies Allergies/Adverse Reactions: Allergies Allergy/AdvReac Type Severity Reaction Status Date / Time clonidine Allergy Unknown back pain Verified 07/17/18 00:19 lisinopril Allergy Unknown back pain Verified 07/17/18 00:19 Medications: Current Medications Acetaminophen (Tylenol) 650 mg PO Q4H PRN PRN Reason: Headache/Fever/Mild Pain (1-3) Last Admin: 08/11/18 16:18 Dose: 650 mg Acetaminophen (Tylenol) 650 mg [place] Q4H PRN PRN Reason: Headache/Fever/Mild Pain (1-3) Hydrocodone Bitart/Acetaminophen ([place] 5/325) 1 tab PO Q4H PRN PRN Reason: Moderate Pain (4-6) Last Admin: 08/15/18 12:42 Dose: 1 tab Apixaban (Eliquis) 5 mg PO BID [facility] Last Admin: 08/15/18 08:30 Dose: 5 mg Fluoxetine HCl (Prozac) 40 mg PO DAILY [facility] Last Admin: 08/15/18 08:30 Dose: 40 mg Loratadine (Claritin) 10 mg PO DAILY [facility] Last Admin: 08/15/18 08:30 Dose: 10 mg Magnesium Hydroxide (Milk Of Magnesium) 30 ml PO DAILYPRN PRN PRN Reason: Constipation Mineral Oil/White Petrolatum (Aquaphor 99 Gm) 0 gm TOP DAILY [facility] Last Admin: 08/15/18 08:30 Dose: 1 applic Miscellaneous Medication (Pharmacy To Dose) 1 each IVPB PRN PRN PRN Reason: Pharmacy to dose Ondansetron HCl (Zofran Odt) 4 mg PO Q6H PRN PRN Reason: Nausea/Vomiting Ondansetron HCl (Zofran) 4 mg IVP Q6H PRN PRN Reason: Nausea/Vomiting Polyethylene Glycol (Miralax) 17 gm PO DAILY PRN PRN Reason: Constipation Saccharomyces Boulardii (Florastor) 250 mg PO DAILY [facility] Last Admin: 08/15/18 08:40 Dose: 250 mg Senna/Docusate Sodium (Senokot S) 1 tab PO BID [facility] Last Admin: 08/15/18 08:40 Dose: 1 tab Sodium Chloride (Flush - Normal Saline) 10 ml IVF Q12HR [facility] Last Admin: 08/15/18 08:40 Dose: 10 ml Sodium Chloride (Flush - Normal Saline) 10 ml IVF PRN PRN PRN Reason: Saline Flush Last Admin: 08/14/18 15:56 Dose: 10 ml Sodium Hypochlorite (Dakin's Half Strength 0.25% Solution) 0 ml TOP ASDIR PRN PRN Reason: Wound Care
[2018-08-16] MEDS: HYDROcodone/Acetaminophen 5/325 mg Tablet PO PRN ×5 (02:07→21:15)
[2018-08-16] MEDS: FLUoxetine HCl 20 MG CAP PO SCH (08:15)
[2018-08-16] MEDS: Apixaban 5 MG TAB PO SCH ×2 (08:15→20:34)
[2018-08-16] MEDS: Senokot S 8.6-50 MG TAB PO SCH ×2 (08:15→20:34)
[2018-08-16] MEDS: Saccharomyces boulardii 250 MG CAP PO SCH (08:16)
[2018-08-16] MEDS: Loratadine 10 MG TAB PO SCH (08:16)
[2018-08-16] MEDS: Acetaminophen 325 MG TAB PO PRN (14:42)
--- NOTE | 2018-08-16 20:07 | PDOC.PN ---
- Subjective Encounter Start Date: 08/16/18 Patient seen and examined for Left leg infection. No fever/chills. Pain controlled. No N/V. No new complaints. No overnight events - Objective Resuscitation Status - Order Detail: 08/06/18 20:30 Resuscitation Status Routine Resuscitation Status: FULL: Full Resuscitation MAR Reviewed: Yes Vital Signs & Weight: Vital Signs (12 hours) Temp Pulse Resp BP Pulse Ox 08/16/18 08:49 97.5 F L 81 16 143/90 H 98 08/16/18 08:37 98 Weight Admit Weight 187 lb Weight 184 lb 4 oz I&O: 08/15/18 08/16/18 08/17/18 06:59 06:59 06:59 Intake Total 2700 3210 2100 Output Total 2800 4000 2020 Balance -100 -790 80 Result Diagrams: 08/07/18 06:40 08/07/18 06:40 Phys Exam - Physical Examination Constitutional: NAD Respiratory: no wheezing, no rhonchi Cardiovascular: RRR, no rub Gastrointestinal: soft, non-tender, positive bowel sounds Musculoskeletal: no edema Neurological: moves all 4 limbs Dx/Plan - Plan IMPRESSION: Infected LLE venous ulcer with Cellulitis - Completed IV Zosyn Recent diagnosis of LLE DVT - on Eliquis Chronic venous stasis Med noncompliance PLAN: Cont wound care/wound irrigation Cont Eliquis Eliquis assistance in process Cont other meds as below DC when ok with gen surg Review of Systems - Review of Systems Respiratory: negative: Cough, Dry, Shortness of Breath, Hemoptysis, SOB with Excertion, Pleuritic Pain, Sputum, Wheezing Cardiovascular: negative: chest pain, palpitations, orthopnea, paroxysmal nocturnal dyspnea, edema, light headedness, other Gastrointestinal: negative: Nausea, Vomiting, Abdominal Pain, Diarrhea, Constipation, Melena, Hematochezia, Other - Medications/Allergies Allergies/Adverse Reactions: Allergies Allergy/AdvReac Type Severity Reaction Status Date / Time clonidine Allergy Unknown back pain Verified 07/17/18 00:19 lisinopril Allergy Unknown back pain Verified 07/17/18 00:19 Medications: Current Medications Acetaminophen (Tylenol) 650 mg PO Q4H PRN PRN Reason: Headache/Fever/Mild Pain (1-3) Last Admin: 08/16/18 14:42 Dose: 650 mg Acetaminophen (Tylenol) 650 mg [place] Q4H PRN PRN Reason: Headache/Fever/Mild Pain (1-3) Hydrocodone Bitart/Acetaminophen ([place] 5/325) 1 tab PO Q4H PRN PRN Reason: Moderate Pain (4-6) Last Admin: 08/16/18 16:57 Dose: 1 tab Apixaban (Eliquis) 5 mg PO BID [facility] Last Admin: 08/16/18 08:15 Dose: 5 mg Fluoxetine HCl (Prozac) 40 mg PO DAILY [facility] Last Admin: 08/16/18 08:15 Dose: 40 mg Loratadine (Claritin) 10 mg PO DAILY [facility] Last Admin: 08/16/18 08:16 Dose: 10 mg Magnesium Hydroxide (Milk Of Magnesium) 30 ml PO DAILYPRN PRN PRN Reason: Constipation Mineral Oil/White Petrolatum (Aquaphor 99 Gm) 0 gm TOP DAILY [facility] Last Admin: 08/16/18 08:16 Dose: 1 applic Miscellaneous Medication (Pharmacy To Dose) 1 each IVPB PRN PRN PRN Reason: Pharmacy to dose Ondansetron HCl (Zofran Odt) 4 mg PO Q6H PRN PRN Reason: Nausea/Vomiting Ondansetron HCl (Zofran) 4 mg IVP Q6H PRN PRN Reason: Nausea/Vomiting Polyethylene Glycol (Miralax) 17 gm PO DAILY PRN PRN Reason: Constipation Saccharomyces Boulardii (Florastor) 250 mg PO DAILY [facility] Last Admin: 08/16/18 08:16 Dose: 250 mg Senna/Docusate Sodium (Senokot S) 1 tab PO BID [facility] Last Admin: 08/16/18 08:15 Dose: 1 tab Sodium Chloride (Flush - Normal Saline) 10 ml IVF Q12HR [facility] Last Admin: 08/16/18 08:17 Dose: 10 ml Sodium Chloride (Flush - Normal Saline) 10 ml IVF PRN PRN PRN Reason: Saline Flush Last Admin: 08/14/18 15:56 Dose: 10 ml Sodium Hypochlorite (Dakin's Half Strength 0.25% Solution) 0 ml TOP ASDIR PRN PRN Reason: Wound Care
[2018-08-17] MEDS: HYDROcodone/Acetaminophen 5/325 mg Tablet PO PRN ×6 (01:10→22:12)
[2018-08-17] MEDS: Senokot S 8.6-50 MG TAB PO SCH ×2 (09:02→20:05)
[2018-08-17] MEDS: Saccharomyces boulardii 250 MG CAP PO SCH (09:02)
[2018-08-17] MEDS: Apixaban 5 MG TAB PO SCH ×2 (09:02→20:05)
[2018-08-17] MEDS: FLUoxetine HCl 20 MG CAP PO SCH (09:03)
[2018-08-17] MEDS: Loratadine 10 MG TAB PO SCH (09:03)
--- NOTE | 2018-08-17 14:52 | PDOC.PN ---
- Subjective Encounter Start Date: 08/17/18 Encounter Start Time: 14:49 Patient seen and examined for foot infection. No fever. No new complaints. No overnight events - Objective Resuscitation Status - Order Detail: 08/06/18 20:30 Resuscitation Status Routine Resuscitation Status: FULL: Full Resuscitation MAR Reviewed: Yes Vital Signs & Weight: Vital Signs (12 hours) Temp Pulse Resp BP Pulse Ox 08/17/18 08:00 96 08/17/18 07:51 97.6 F 84 18 125/83 96 Weight Admit Weight 187 lb Weight 184 lb 4 oz I&O: 08/16/18 08/17/18 08/18/18 06:59 06:59 06:59 Intake Total 3210 3600 400 Output Total 4000 3720 Balance -790 -120 400 Result Diagrams: 08/07/18 06:40 08/07/18 06:40 Phys Exam - Physical Examination Constitutional: NAD Respiratory: no wheezing, no rhonchi Cardiovascular: RRR, no rub Gastrointestinal: soft, non-tender, positive bowel sounds Musculoskeletal: no edema Neurological: moves all 4 limbs Psychiatric: A&O x 3 Dx/Plan - Plan DVT proph w/SCDs IMPRESSION: Infected LLE venous ulcer with Cellulitis - Completed IV Atbx Recent diagnosis of LLE DVT - on Eliquis Chronic venous stasis Chronic Anemia Med noncompliance PLAN: Cont wound care/wound irrigation Cont Eliquis Cont other meds as below DC when ok with gen surg Review of Systems - Review of Systems Respiratory: negative: Cough, Dry, Shortness of Breath, Hemoptysis, SOB with Excertion, Pleuritic Pain, Sputum, Wheezing Cardiovascular: negative: chest pain, palpitations, orthopnea, paroxysmal nocturnal dyspnea, edema, light headedness, other - Medications/Allergies Allergies/Adverse Reactions: Allergies Allergy/AdvReac Type Severity Reaction Status Date / Time clonidine Allergy Unknown back pain Verified 07/17/18 00:19 lisinopril Allergy Unknown back pain Verified 07/17/18 00:19 Medications: Current Medications Acetaminophen (Tylenol) 650 mg PO Q4H PRN PRN Reason: Headache/Fever/Mild Pain (1-3) Last Admin: 08/16/18 14:42 Dose: 650 mg Acetaminophen (Tylenol) 650 mg [place] Q4H PRN PRN Reason: Headache/Fever/Mild Pain (1-3) Hydrocodone Bitart/Acetaminophen ([place] 5/325) 1 tab PO Q4H PRN PRN Reason: Moderate Pain (4-6) Last Admin: 08/17/18 13:00 Dose: 1 tab Apixaban (Eliquis) 5 mg PO BID [facility] Last Admin: 08/17/18 09:02 Dose: 5 mg Fluoxetine HCl (Prozac) 40 mg PO DAILY [facility] Last Admin: 08/17/18 09:03 Dose: 40 mg Loratadine (Claritin) 10 mg PO DAILY [facility] Last Admin: 08/17/18 09:03 Dose: 10 mg Magnesium Hydroxide (Milk Of Magnesium) 30 ml PO DAILYPRN PRN PRN Reason: Constipation Mineral Oil/White Petrolatum (Aquaphor 99 Gm) 0 gm TOP DAILY [facility] Last Admin: 08/17/18 09:04 Dose: 1 applic Ondansetron HCl (Zofran Odt) 4 mg PO Q6H PRN PRN Reason: Nausea/Vomiting Ondansetron HCl (Zofran) 4 mg IVP Q6H PRN PRN Reason: Nausea/Vomiting Polyethylene Glycol (Miralax) 17 gm PO DAILY PRN PRN Reason: Constipation Saccharomyces Boulardii (Florastor) 250 mg PO DAILY [facility] Last Admin: 08/17/18 09:02 Dose: 250 mg Senna/Docusate Sodium (Senokot S) 1 tab PO BID [facility] Last Admin: 08/17/18 09:02 Dose: 1 tab Sodium Chloride (Flush - Normal Saline) 10 ml IVF Q12HR [facility] Last Admin: 08/17/18 09:04 Dose: Not Given Sodium Chloride (Flush - Normal Saline) 10 ml IVF PRN PRN PRN Reason: Saline Flush Last Admin: 08/14/18 15:56 Dose: 10 ml Sodium Hypochlorite (Dakin's Half Strength 0.25% Solution) 0 ml TOP ASDIR PRN PRN Reason: Wound Care
[2018-08-17] MEDS ORDERED: Clopidogrel Bisulfate 75 MG TAB ONE (16:58)
[2018-08-18] MEDS: HYDROcodone/Acetaminophen 5/325 mg Tablet PO PRN ×5 (02:09→20:17)
[2018-08-18] MEDS ORDERED: Clopidogrel Bisulfate 75 MG TAB ONE (08:08)
[2018-08-18] MEDS: Senokot S 8.6-50 MG TAB PO SCH ×2 (08:15→20:17)
[2018-08-18] MEDS: Loratadine 10 MG TAB PO SCH (08:15)
[2018-08-18] MEDS: FLUoxetine HCl 20 MG CAP PO SCH (08:15)
[2018-08-18] MEDS: Apixaban 5 MG TAB PO SCH ×2 (08:15→20:17)
[2018-08-18] MEDS: Saccharomyces boulardii 250 MG CAP PO SCH (08:15)
--- NOTE | 2018-08-18 23:42 | PDOC.PN ---
- Subjective Encounter Start Date: 08/18/18 Encounter Start Time: 12:30 Patient seen and examined for foot infection. No fever/N/V. No new complaints. No overnight events - Objective Resuscitation Status - Order Detail: 08/06/18 20:30 Resuscitation Status Routine Resuscitation Status: FULL: Full Resuscitation MAR Reviewed: Yes Vital Signs & Weight: Vital Signs (12 hours) Temp Pulse Resp BP BP Pulse Ox 08/18/18 19:47 97.3 F L 67 18 136/87 97 08/18/18 19:37 97.3 F L 67 18 136/87 97 Weight Admit Weight 187 lb Weight 184 lb 4 oz I&O: 08/17/18 08/18/18 08/19/18 06:59 06:59 06:59 Intake Total 3600 4700 2600 Output Total 3720 3500 Balance -120 1200 2600 Result Diagrams: 08/07/18 06:40 08/07/18 06:40 Phys Exam - Physical Examination Constitutional: NAD Respiratory: no wheezing, no rhonchi Cardiovascular: RRR, no rub Gastrointestinal: soft, non-tender, positive bowel sounds Musculoskeletal: edema present (LLE improving. Wound vac+) Neurological: moves all 4 limbs Dx/Plan - Plan DVT proph w/lovenox, DVT proph w/SCDs IMPRESSION: Infected LLE venous ulcer with Cellulitis - Completed IV Atbx Recent diagnosis of LLE DVT - on Eliquis Chronic venous stasis Chronic Anemia Med noncompliance PLAN: Cont wound care with irrigation Antibiotics completed Cont Eliquis Eliquis assistance in process Cont other meds as below DC home when ok with gen surg Review of Systems - Review of Systems Constitutional: negative: fever, chills, sweats, weakness, malaise, other Respiratory: negative: Cough, Dry, Shortness of Breath, Hemoptysis, SOB with Excertion, Pleuritic Pain, Sputum, Wheezing Cardiovascular: negative: chest pain, palpitations, orthopnea, paroxysmal nocturnal dyspnea, edema, light headedness, other Gastrointestinal: negative: Nausea, Vomiting, Abdominal Pain, Diarrhea, Constipation, Melena, Hematochezia, Other - Medications/Allergies Allergies/Adverse Reactions: Allergies Allergy/AdvReac Type Severity Reaction Status Date / Time clonidine Allergy Unknown back pain Verified 07/17/18 00:19 lisinopril Allergy Unknown back pain Verified 07/17/18 00:19 Medications: Current Medications Acetaminophen (Tylenol) 650 mg PO Q4H PRN PRN Reason: Headache/Fever/Mild Pain (1-3) Last Admin: 08/16/18 14:42 Dose: 650 mg Acetaminophen (Tylenol) 650 mg [place] Q4H PRN PRN Reason: Headache/Fever/Mild Pain (1-3) Hydrocodone Bitart/Acetaminophen ([place] 5/325) 1 tab PO Q4H PRN PRN Reason: Moderate Pain (4-6) Last Admin: 08/18/18 20:17 Dose: 1 tab Apixaban (Eliquis) 5 mg PO BID [facility] Last Admin: 08/18/18 20:17 Dose: 5 mg Fluoxetine HCl (Prozac) 40 mg PO DAILY [facility] Last Admin: 08/18/18 08:15 Dose: 40 mg Loratadine (Claritin) 10 mg PO DAILY [facility] Last Admin: 08/18/18 08:15 Dose: 10 mg Magnesium Hydroxide (Milk Of Magnesium) 30 ml PO DAILYPRN PRN PRN Reason: Constipation Mineral Oil/White Petrolatum (Aquaphor 99 Gm) 0 gm TOP DAILY [facility] Last Admin: 08/18/18 09:50 Dose: 1 applic Ondansetron HCl (Zofran Odt) 4 mg PO Q6H PRN PRN Reason: Nausea/Vomiting Ondansetron HCl (Zofran) 4 mg IVP Q6H PRN PRN Reason: Nausea/Vomiting Polyethylene Glycol (Miralax) 17 gm PO DAILY PRN PRN Reason: Constipation Saccharomyces Boulardii (Florastor) 250 mg PO DAILY [facility] Last Admin: 08/18/18 08:15 Dose: 250 mg Senna/Docusate Sodium (Senokot S) 1 tab PO BID [facility] Last Admin: 08/18/18 20:17 Dose: 1 tab Sodium Chloride (Flush - Normal Saline) 10 ml IVF Q12HR [facility] Last Admin: 08/18/18 20:17 Dose: Not Given Sodium Chloride (Flush - Normal Saline) 10 ml IVF PRN PRN PRN Reason: Saline Flush Last Admin: 08/14/18 15:56 Dose: 10 ml Sodium Hypochlorite (Dakin's Half Strength 0.25% Solution) 0 ml TOP ASDIR PRN PRN Reason: Wound Care
[2018-08-19] MEDS: Apixaban 5 MG TAB PO SCH ×2 (09:04→19:31)
[2018-08-19] MEDS: Saccharomyces boulardii 250 MG CAP PO SCH (09:04)
[2018-08-19] MEDS: Senokot S 8.6-50 MG TAB PO SCH ×2 (09:04→19:30)
[2018-08-19] MEDS: FLUoxetine HCl 20 MG CAP PO SCH (09:04)
[2018-08-19] MEDS: Loratadine 10 MG TAB PO SCH (09:04)
[2018-08-19] MEDS: HYDROcodone/Acetaminophen 5/325 mg Tablet PO PRN ×4 (09:04→23:59)
--- NOTE | 2018-08-19 18:30 | PDOC.PN ---
- Subjective Encounter Start Date: 08/19/18 Encounter Start Time: 15:00 Patient seen and examined for foot ulcer. Pain controlled. No new complaints. No overnight events - Objective Resuscitation Status - Order Detail: 08/06/18 20:30 Resuscitation Status Routine Resuscitation Status: FULL: Full Resuscitation MAR Reviewed: Yes Vital Signs & Weight: Vital Signs (12 hours) Temp Pulse Resp BP Pulse Ox 08/19/18 08:00 97 08/19/18 07:41 97.8 F 68 16 129/82 97 Weight Admit Weight 187 lb Weight 184 lb 4 oz I&O: 08/18/18 08/19/18 08/20/18 06:59 06:59 06:59 Intake Total 4700 4600 2250 Output Total 3500 800 Balance 1200 3800 2250 Result Diagrams: 08/07/18 06:40 08/07/18 06:40 Phys Exam - Physical Examination Constitutional: NAD Respiratory: no wheezing, no rhonchi Cardiovascular: RRR, no rub Gastrointestinal: soft, non-tender, positive bowel sounds Musculoskeletal: no edema Neurological: moves all 4 limbs Dx/Plan - Plan DVT proph w/SCDs IMPRESSION: Infected LLE venous ulcer with Cellulitis - Recent diagnosis of LLE DVT - on Eliquis Chronic venous stasis Chronic Anemia Med noncompliance PLAN: Patient completed IV Atbx Cont wound care Eliquis assistance in process Cont other meds as below DC home when ok with gen surg Review of Systems - Review of Systems Respiratory: negative: Cough, Dry, Shortness of Breath, Hemoptysis, SOB with Excertion, Pleuritic Pain, Sputum, Wheezing Cardiovascular: negative: chest pain, palpitations, orthopnea, paroxysmal nocturnal dyspnea, edema, light headedness, other - Medications/Allergies Allergies/Adverse Reactions: Allergies Allergy/AdvReac Type Severity Reaction Status Date / Time clonidine Allergy Unknown back pain Verified 07/17/18 00:19 lisinopril Allergy Unknown back pain Verified 07/17/18 00:19 Medications: Current Medications Acetaminophen (Tylenol) 650 mg PO Q4H PRN PRN Reason: Headache/Fever/Mild Pain (1-3) Last Admin: 08/16/18 14:42 Dose: 650 mg Acetaminophen (Tylenol) 650 mg [place] Q4H PRN PRN Reason: Headache/Fever/Mild Pain (1-3) Hydrocodone Bitart/Acetaminophen ([place] 5/325) 1 tab PO Q4H PRN PRN Reason: Moderate Pain (4-6) Last Admin: 08/19/18 15:33 Dose: 1 tab Apixaban (Eliquis) 5 mg PO BID [facility] Last Admin: 08/19/18 09:04 Dose: 5 mg Cholecalciferol (Vitamin D3) 1,000 units PO DAILY [facility] Fluoxetine HCl (Prozac) 40 mg PO DAILY [facility] Last Admin: 08/19/18 09:04 Dose: 40 mg Folic Acid (Folvite) 1 mg PO DAILY [facility] Loratadine (Claritin) 10 mg PO DAILY [facility] Last Admin: 08/19/18 09:04 Dose: 10 mg Magnesium Hydroxide (Milk Of Magnesium) 30 ml PO DAILYPRN PRN PRN Reason: Constipation Mineral Oil/White Petrolatum (Aquaphor 99 Gm) 0 gm TOP DAILY [facility] Last Admin: 08/19/18 09:05 Dose: 1 applic Multivitamins (Theragran) 1 tab PO DAILY [facility] Ondansetron HCl (Zofran Odt) 4 mg PO Q6H PRN PRN Reason: Nausea/Vomiting Ondansetron HCl (Zofran) 4 mg IVP Q6H PRN PRN Reason: Nausea/Vomiting Polyethylene Glycol (Miralax) 17 gm PO DAILY PRN PRN Reason: Constipation Saccharomyces Boulardii (Florastor) 250 mg PO DAILY [facility] Last Admin: 08/19/18 09:04 Dose: 250 mg Senna/Docusate Sodium (Senokot S) 1 tab PO BID [facility] Last Admin: 08/19/18 09:04 Dose: 1 tab Sodium Chloride (Flush - Normal Saline) 10 ml IVF Q12HR [facility] Last Admin: 08/19/18 09:05 Dose: Not Given Sodium Chloride (Flush - Normal Saline) 10 ml IVF PRN PRN PRN Reason: Saline Flush Last Admin: 08/14/18 15:56 Dose: 10 ml Sodium Hypochlorite (Dakin's Half Strength 0.25% Solution) 0 ml TOP ASDIR PRN PRN Reason: Wound Care
[2018-08-20] MEDS: HYDROcodone/Acetaminophen 5/325 mg Tablet PO PRN ×4 (06:01→19:58)
[2018-08-20] MEDS: Saccharomyces boulardii 250 MG CAP PO SCH (09:05)
[2018-08-20] MEDS: Folic Acid 1 MG TAB PO SCH (09:05)
[2018-08-20] MEDS: Multivit, Therapeutic 1 TAB PO SCH (09:05)
[2018-08-20] MEDS: Apixaban 5 MG TAB PO SCH ×2 (09:05→19:59)
[2018-08-20] MEDS: Loratadine 10 MG TAB PO SCH (09:05)
[2018-08-20] MEDS: FLUoxetine HCl 20 MG CAP PO SCH (09:05)
[2018-08-20] MEDS: Senokot S 8.6-50 MG TAB PO SCH ×2 (09:05→19:59)
--- NOTE | 2018-08-20 18:01 | PDOC.GSPN ---
Surgery Progress Note: Subj - Subjective Narrative: Yesterday with wound care team. Wound looks great. Filling in and granulating with very minimal superficial slough. His ankle is still quite swollen with a restless leg is gone down quite a bit. Regular VAC was placed and from a surgical standpoint no further debridement is planned. Home with wound VAC when medically stable. Can follow up in outpatient wound care center. Surgery Progress Note: Obj - Vital signs Vital signs: Vital Signs - Most Recent Temp Pulse Resp BP Pulse Ox 97.8 F 71 16 138/86 98 08/20/18 08:00 08/20/18 08:00 08/20/18 08:00 08/20/18 08:00 08/20/18 09:05 Surgery Progress Note: Results - Labs Result Diagrams: 08/07/18 06:40 08/07/18 06:40
--- NOTE | 2018-08-20 20:22 | PDOC.PN ---
- Subjective Encounter Start Date: 08/20/18 Encounter Start Time: 15:30 Patient seen and examined for foot infection. Tolerating wound vac. No new complaints. No overnight events - Objective Resuscitation Status - Order Detail: 08/06/18 20:30 Resuscitation Status Routine Resuscitation Status: FULL: Full Resuscitation MAR Reviewed: Yes Vital Signs & Weight: Vital Signs (12 hours) Pulse Ox 08/20/18 09:05 98 Weight Admit Weight 187 lb Weight 184 lb 4 oz I&O: 08/19/18 08/20/18 08/21/18 06:59 06:59 06:59 Intake Total 4600 3750 1920 Output Total 800 2700 1470 Balance 3800 1050 450 Result Diagrams: 08/07/18 06:40 08/07/18 06:40 Phys Exam - Physical Examination Constitutional: NAD Respiratory: no wheezing, no rhonchi Cardiovascular: RRR, no rub Gastrointestinal: soft, non-tender, positive bowel sounds Musculoskeletal: no edema Neurological: non-focal, moves all 4 limbs Dx/Plan - Plan DVT proph w/SCDs IMPRESSION: Infected LLE venous ulcer with Cellulitis - completed IV Atbx Recent diagnosis of LLE DVT - on Eliquis Chronic venous stasis Chronic Anemia Med noncompliance PLAN: Cont wound care Eliquis assistance in process - Will receive Eliquis tomorrow Cont other meds as below Stable for discharge Review of Systems - Review of Systems Respiratory: negative: Cough, Dry, Shortness of Breath, Hemoptysis, SOB with Excertion, Pleuritic Pain, Sputum, Wheezing Cardiovascular: negative: chest pain, palpitations, orthopnea, paroxysmal nocturnal dyspnea, edema, light headedness, other Gastrointestinal: negative: Nausea, Vomiting, Abdominal Pain, Diarrhea, Constipation, Melena, Hematochezia, Other - Medications/Allergies Allergies/Adverse Reactions: Allergies Allergy/AdvReac Type Severity Reaction Status Date / Time clonidine Allergy Unknown back pain Verified 07/17/18 00:19 lisinopril Allergy Unknown back pain Verified 07/17/18 00:19 Medications: Current Medications Acetaminophen (Tylenol) 650 mg PO Q4H PRN PRN Reason: Headache/Fever/Mild Pain (1-3) Last Admin: 08/16/18 14:42 Dose: 650 mg Acetaminophen (Tylenol) 650 mg [place] Q4H PRN PRN Reason: Headache/Fever/Mild Pain (1-3) Hydrocodone Bitart/Acetaminophen ([place] 5/325) 1 tab PO Q4H PRN PRN Reason: Moderate Pain (4-6) Last Admin: 08/20/18 19:58 Dose: 1 tab Apixaban (Eliquis) 5 mg PO BID [facility] Last Admin: 08/20/18 19:59 Dose: 5 mg Cholecalciferol (Vitamin D3) 1,000 units PO DAILY [facility] Last Admin: 08/20/18 09:05 Dose: 1,000 units Fluoxetine HCl (Prozac) 40 mg PO DAILY [facility] Last Admin: 08/20/18 09:05 Dose: 40 mg Folic Acid (Folvite) 1 mg PO DAILY [facility] Last Admin: 08/20/18 09:05 Dose: 1 mg Loratadine (Claritin) 10 mg PO DAILY [facility] Last Admin: 08/20/18 09:05 Dose: 10 mg Magnesium Hydroxide (Milk Of Magnesium) 30 ml PO DAILYPRN PRN PRN Reason: Constipation Mineral Oil/White Petrolatum (Aquaphor 99 Gm) 0 gm TOP DAILY [facility] Last Admin: 08/20/18 09:05 Dose: 1 applic Multivitamins (Theragran) 1 tab PO DAILY [facility] Last Admin: 08/20/18 09:05 Dose: 1 tab Ondansetron HCl (Zofran Odt) 4 mg PO Q6H PRN PRN Reason: Nausea/Vomiting Ondansetron HCl (Zofran) 4 mg IVP Q6H PRN PRN Reason: Nausea/Vomiting Polyethylene Glycol (Miralax) 17 gm PO DAILY PRN PRN Reason: Constipation Saccharomyces Boulardii (Florastor) 250 mg PO DAILY [facility] Last Admin: 08/20/18 09:05 Dose: 250 mg Senna/Docusate Sodium (Senokot S) 1 tab PO BID [facility] Last Admin: 08/20/18 19:59 Dose: 1 tab Sodium Chloride (Flush - Normal Saline) 10 ml IVF Q12HR [facility] Last Admin: 08/20/18 20:01 Dose: Not Given Sodium Chloride (Flush - Normal Saline) 10 ml IVF PRN PRN PRN Reason: Saline Flush Last Admin: 08/14/18 15:56 Dose: 10 ml Sodium Hypochlorite (Dakin's Half Strength 0.25% Solution) 0 ml TOP ASDIR PRN PRN Reason: Wound Care
[2018-08-21] MEDS: HYDROcodone/Acetaminophen 5/325 mg Tablet PO PRN ×4 (00:16→13:17)
[2018-08-21 07:44] LABS: #Basophils 0.1 thou/uL (0.0-0.2); #Eosinphils 0.2 thou/uL (0.0-0.7); #Lymphocytes 2.4 thou/uL (1.20-3.40); #Monocytes 0.7 thou/uL (0.11-0.59); #Neutrophils 4.2 thou/uL (1.40-6.50); %Basophils 1.3 % (0.0-1.0); %Eosinophils 2.3 % (0.0-10.0); %Lymphocytes 31.3 % (21.0-51.0); %Monocytes 9.6 % (0.0-10.0); %Neutrophils 55.4 % (42.0-75.0); Hemoglobin 14.3 g/dL (14.0-18.0); Mean Corpuscular HGB CONC 33.4 g/dL (32.0-36.0); Mean Corpuscular Hemoglobin 30.2 pg (27.0-31.0); Mean Corpuscular Volume 90.4 fL (78.0-98.0); Mean Platelet Volume 7.3 fL (7.4-10.4); Platelet Count 422 thou/uL (130-400); RBC Distribution Width 13.6 % (11.5-14.5); Red Blood Cell (RBC) Count 4.72 mill/uL (4.70-6.10); White Blood Cell (WBC) Count 7.6 thou/uL (4.8-10.8)
[2018-08-21 07:45] LABS: ALT (SGPT) 16 U/L (8-55); AST (SGOT) 19 U/L (5-34); Albumin 4.6 g/dL (3.4-4.8); Alkaline Phosphatase 78 U/L (40-150); Anion Gap 12 mmol/L (10-20); BUN (Urea Nitrogen) 19 mg/dL (8.4-25.7); Bilirubin, Total 0.7 mg/dL (0.2-1.2); Calc. Creatinine Clearance 108 mL/min (70-130); Calcium 10.3 mg/dL (7.8-10.44); Carbon Dioxide 28 mmol/L (23-31); Chloride 96 mmol/L (98-107); Estimated GFR-MDRD Greater than 90; Globulin 4.4 g/dL (2.4-3.5); Glucose 104 mg/dL (80-115); Potassium 4.3 mmol/L (3.5-5.1); Sodium 132 mmol/L (136-145)
[2018-08-21] MEDS: Apixaban 5 MG TAB PO SCH (09:06)
[2018-08-21] MEDS: Saccharomyces boulardii 250 MG CAP PO SCH (09:06)
[2018-08-21] MEDS: Multivit, Therapeutic 1 TAB PO SCH (09:06)
[2018-08-21] MEDS: Loratadine 10 MG TAB PO SCH (09:06)
[2018-08-21] MEDS: Folic Acid 1 MG TAB PO SCH (09:06)
[2018-08-21] MEDS: Senokot S 8.6-50 MG TAB PO SCH (09:06)
[2018-08-21] MEDS: FLUoxetine HCl 20 MG CAP PO SCH (09:06)
[2018-08-21 13:47] VITALS: BP 142/84; TEMP 97.9
--- NOTE | 2018-08-22 01:55 | DIS ---
DATE OF ADMISSION: 08/06/2018 DATE OF DISCHARGE: 08/21/2018 CONSULTANTS: 1. Dr. Gillette of General Surgery. 2. Dr. Mak of Infectious Disease. MEDICATIONS: Reconciled at discharge. New medications: 1. Thornton 5/325 one tablet every 4 hours as needed for moderate pain. Prescription provided for 35 tablets. Further refills from patient's primary care provider, Dr. Herrera. 2. MiraLAX 17 g p.o. daily as needed for constipation. 3. Senokot S one tablet p.o. b.i.d. to help reduce the risk of constipation. Medications to resume: 1. Eliquis 5 mg b.i.d. - see below, medication assistance was found for the patient and the prescription was mailed to his home. 2. Vitamin D3 1000 units daily. 3. Prozac 40 mg daily. 4. Folic acid 0.8 mg daily. 5. One A Day multivitamin one daily. MEDICATIONS DISCONTINUED: Naproxen and ibuprofen. These are discontinued as the patient is on Eliquis. FOLLOWUP: 1. Followup is with the [facility] as currently scheduled on 08/23, at 8: 00 a.m. 2. Followup with Dr. Herrera recommend either in 2 days on Sunday or in 5 days to review overall health and refill pain medication as needed. FINAL DIAGNOSES: 1. Infected left lower extremity venous ulcer with cellulitis, now status post debridement with wound VAC in place. 2. Left lower extremity deep vein thrombosis. 3. Hyponatremia, mild. SECONDARY DIAGNOSES: 1. Chronic venous stasis. 2. Chronic anemia. 3. History of hypertension. 4. Mood disorder. HISTORY OF PRESENT ILLNESS: Mr. Urena is a 62-year-old male with the above medical problems, who presented to the emergency room with known DVT, ran out of medications and has a nonhealing wound. There was significant swelling, change in the skin and odor from the wound concerning for infection. HOSPITAL COURSE: The patient was evaluated by General Surgery and underwent debridement at the bedside for this. A wound VAC is in place and the patient will follow up with the [facility]. Infectious Disease, Dr. Mak evaluated the patient and he was on broad-spectrum antibiotics with Zosyn and vancomycin. These have been completed and the patient does not require any further antibiotic care. The patient does have an extensive DVT and he was restarted on Eliquis. Case management has worked with the patient to find a program to help fund the Eliquis which he will remain on as an outpatient. The duration of treatment to be determined with his primary care provider, anticipate a minimum of 3 months. The patient was kept on his usual home medications, MiraLAX was added for as needed and Senokot scheduled to help reduce the risk of constipation. The patient overall feeling well, does have the Eliquis now for discharge, has the wound VAC in place and a plan for followup care. He does meet criteria for discharge to home. PHYSICAL EXAMINATION: VITAL SIGNS: On day of discharge, blood pressure 145/91, temp 98, pulse 71, respirations 18, sats 96% on room air. GENERAL: Awake, alert, responsive, in no apparent distress. LUNGS: Clear to auscultation bilateral. HEART: Normal S1 and S2. Regular rate and rhythm. No audible murmurs. ABDOMEN: Soft with present bowel sounds. Nontender, nondistended. EXTREMITIES: His left lower extremity is bandaged, edematous, and wound VAC is in place. MCCOLLUM FINDINGS AND TEST RESULTS: CBC today; 7.6, 14.3, 42.6, 422, the highest white count was 8.4. Chemistry; 132, 4.3, 96, 28, 19, 0.82, 104. Calcium 10.3, T bilirubin 0.7, AST 19, ALT 16, alkaline phosphatase 78, total protein 9, albumin 4.6. CRP when checked, it was 1.86. Foot x-ray on 08/06, showed soft tissue abnormality at the level of the ankle. No evidence of erosion or destruction of the osseous structures of the left foot. No radiographic evidence of osteomyelitis. Ankle x-ray on 08/06, shows soft tissue cellulitis with possible soft tissue abscess along the medial aspect of the left lower extremity. DIET: Regular. ACTIVITY: As tolerated, the patient is advised that he can ambulate with the wound VAC. DISCHARGE DISPOSITION: Home. CODE STATUS: Full. Reviewed with the patient this hospitalization, the prescription of Thornton that will need to be refilled and reassessed with Dr. Herrera, to avoid anti- inflammatories as he is on Eliquis, and seek care precautions. He demonstrates understanding. Total time coordinating discharge is 35 minutes. Job ID: [id number] [facility]
== END 2018-08-21 14:14 | disposition home or self-care (01) | DRG 264 ==
LOC: ERS 14:23 → T4-B 17:39
PROVIDERS: ADMIT Family Medicine; ATTEND Family Medicine
PROC: 0JBP0ZZ Excision of Left Lower Leg Subcutaneous Tissue and Fascia, Open Approach (ICD-10-PCS; principal; 2018-08-08)
DX: I87.2 Venous insufficiency (chronic) (peripheral) (principal); L03.116 Cellulitis of left lower limb; E87.1 Hypo-osmolality and hyponatremia; I82.402 Acute embolism and thrombosis of unspecified deep veins of left lower extremity; I10 Essential (primary) hypertension; F32.9 Major depressive disorder, single episode, unspecified; E78.5 Hyperlipidemia, unspecified; I87.002 Postthrombotic syndrome without complications of left lower extremity; D64.9 Anemia, unspecified; F39 Unspecified mood [affective] disorder; Z88.8 Allergy status to other drugs, medicaments and biological substances; Z91.14 Patient's other noncompliance with medication regimen
CPT/HCPCS: 36415; 36416; 80048; 80053; 80202; 83605; 85025; 85610; 85652; 85730; 86140; 87040; 96365; 96367; 96375; J2270; J2405; J2543; J3370; J3490; J7050

== ENCOUNTER 2018-08-23 11:22 | Outpatient (CLI) | payer OTHER, SELFPAY ==
[2018-08-23] MEDS ORDERED: Sodium Chloride 0.9% 15 ML NEB ONE (18:00)
== END 2018-08-23 11:23 | disposition home or self-care (01) ==
LOC: WCC 11:22
PROVIDERS: ATTEND Family Medicine
DX: T81.89XD Other complications of procedures, not elsewhere classified, subsequent encounter (principal)
CPT/HCPCS: 97605; A4218

== ENCOUNTER 2018-08-27 09:06 | Outpatient (CLI) | payer OTHER, SELFPAY ==
[2018-08-27] MEDS ORDERED: Sodium Chloride 0.9% 15 ML NEB ONE (11:11)
== END 2018-08-27 09:07 | disposition home or self-care (01) ==
LOC: WCC 09:06
PROVIDERS: ATTEND Family Medicine
DX: T81.89XD Other complications of procedures, not elsewhere classified, subsequent encounter (principal)
CPT/HCPCS: 97605; A4218

== ENCOUNTER 2018-08-30 14:51 | Outpatient (CLI) | payer OTHER, SELFPAY ==
[2018-08-30] MEDS ORDERED: Sodium Chloride 0.9% 15 ML NEB ONE (15:00)
== END 2018-08-30 14:52 | disposition home or self-care (01) ==
LOC: WCC 14:51
PROVIDERS: ATTEND Family Medicine
DX: T81.89XD Other complications of procedures, not elsewhere classified, subsequent encounter (principal)
CPT/HCPCS: 97605; A4218

== ENCOUNTER 2018-09-03 09:54 | Outpatient (CLI) | payer OTHER, SELFPAY ==
[2018-09-03] MEDS ORDERED: Sodium Chloride 0.9% 15 ML NEB ONE (18:00)
== END 2018-09-03 09:55 | disposition home or self-care (01) ==
LOC: WCC 09:54
PROVIDERS: ATTEND Family Medicine
DX: T81.89XD Other complications of procedures, not elsewhere classified, subsequent encounter (principal)
CPT/HCPCS: 97605; A4218

== ENCOUNTER 2018-09-06 11:13 | Outpatient (CLI) | payer OTHER, SELFPAY ==
[2018-09-06] MEDS ORDERED: Sodium Chloride 0.9% 15 ML NEB ONE (15:00)
== END 2018-09-06 11:14 | disposition home or self-care (01) ==
LOC: WCC 11:13
PROVIDERS: ATTEND Family Medicine
DX: T81.89XD Other complications of procedures, not elsewhere classified, subsequent encounter (principal)
CPT/HCPCS: A4218

== ENCOUNTER 2018-09-09 09:07 | Outpatient (CLI) | payer OTHER, SELFPAY ==
--- NOTE | 2018-09-09 10:40 | HP ---
HISTORY OF PRESENT ILLNESS: Mr. Buster Urena is a very pleasant 62-year-old gentleman, who presents to the Wound Center for evaluation of an ulceration of the left medial ankle. 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 He states that he developed an infectious process of his left lower leg and subsequently deep venous thrombosis of the left lower extremity. He states that the wound of his left lower leg in the region of the medial malleolus developed after wearing loafers with significant edema of his left lower extremity. The patient states he worked an entire shift with significant left lower extremity edema resulting in the ulceration. The patient states that he was seen by his primary care physician, Dr. Herrera the following day. He states that he was admitted to [facility] for approximately 14 days. The patient states that he required readmission for 4 days and a second readmission for approximately 17 days. The patient states that while at home, he had been changing his dressing four times a day because of drainage associated with his wound. He states that he was last readmitted to [facility] for an infectious process. He states that during this admission, his ulceration was debrided at bedside by Dr. Gillette. Negative pressure therapy was initiated, and upon discharge from [facility], the patient was referred to the Wound Center for assistance with dressing changes of the wound VAC. PAST MEDICAL HISTORY: 1. Hypertension. 2. Seasonal allergies. 3. Deep venous thrombosis of left lower extremity. 4. Anemia. PAST SURGICAL HISTORY: 1. Sinus surgery. 2. Left patellar tendon repair. 3. Right shoulder surgery, arthroscopic. 4. Right second finger surgery. MEDICATIONS: 1. [place]. 2. MiraLAX. 3. Prozac. 4. Eliquis. 5. Folic acid. 6. Multivitamin. 7. Vitamin D3. ALLERGIES: CLONIDINE, LISINOPRIL. SOCIAL HISTORY: Social history is significant for EtOH use of 3 drinks per day since the patient's college years. FAMILY HISTORY: Significant for diabetes mellitus. The patient states his maternal grandfather was diagnosed with diabetes mellitus. The patient states that his grandfather's sister was also diagnosed with diabetes mellitus. Family history is also significant for coronary artery disease. The patient states that he has a maternal uncle and a paternal uncle who were both diagnosed with coronary artery disease. PHYSICAL EXAMINATION: VITAL SIGNS: Temperature 98.5, pulse 89, respirations 18, blood pressure 121/77. GENERAL: A 62-year-old gentleman, sitting on chair in examination room, in no acute distress. HEENT: Normocephalic. NECK: No nuchal rigidity. CHEST: Clear to auscultation. CV: Regular rate and rhythm. ABDOMEN: Soft. EXTREMITIES: An ulceration of the left lower leg in the region of the medial malleolus is present. The dimensions of the wound are approximately 6.0 x 7.2 cm. Granulation tissue is present within the wound margins. No purulent drainage is associated with the wound. No erythema of the skin surrounding the wound is present. No maceration of the skin of the periwound is noted. A dorsalis pedis pulse is easily palpable on the left. Significant edema of the left foot and lower leg is present on exam today. NEUROLOGIC: Grossly nonfocal. ASSESSMENT AND PLAN: 1. Ulceration of left lower leg in the region of the medial malleolus as described above. Negative pressure therapy will be continued with dressing changes of the wound VAC here in the Wound Center. Promogran will be applied to the wound bed at the time of dressing changes. The 3M Coban 2-Layer Compression System will be applied to the left foot and lower leg in conjunction with the wound VAC. No antibiotics will be prescribed today based upon the appearance of the wound. The patient will be seen by Dr. Gillette next week. I will see Mr. Urena again in 2 weeks. 2. Hypertension. 3. Seasonal allergies. 4. Deep venous thrombosis of left lower extremity. 5. Anemia. Job ID: [id number]
[2018-09-09] MEDS ORDERED: Sodium Chloride 0.9% 15 ML NEB ONE (15:00)
== END 2018-09-09 09:08 | disposition home or self-care (01) ==
LOC: WCC 09:07
PROVIDERS: ATTEND Family Medicine
DX: L97.929 Non-pressure chronic ulcer of unspecified part of left lower leg with unspecified severity (principal); I10 Essential (primary) hypertension; J30.2 Other seasonal allergic rhinitis; D64.9 Anemia, unspecified; I82.402 Acute embolism and thrombosis of unspecified deep veins of left lower extremity
CPT/HCPCS: A4218

== ENCOUNTER 2018-09-12 08:03 | Outpatient (CLI) | payer OTHER | END 2018-09-12 08:04 | disposition home or self-care (01) | LOC: WCC 08:03 | PROVIDERS: ATTEND Family Medicine | DX: T81.89XD Other complications of procedures, not elsewhere classified, subsequent encounter (principal) ==

== ENCOUNTER 2018-09-16 10:06 | Outpatient (CLI) | payer OTHER, SELFPAY ==
[2018-09-16] MEDS ORDERED: Sodium Chloride 0.9% 15 ML NEB ONE ×2 (11:11)
== END 2018-09-16 10:07 | disposition home or self-care (01) ==
LOC: WCC 10:06
PROVIDERS: ATTEND Family Medicine
DX: T81.89XD Other complications of procedures, not elsewhere classified, subsequent encounter (principal)
CPT/HCPCS: A4218

== ENCOUNTER 2018-09-19 11:57 | Outpatient (CLI) | payer OTHER, SELFPAY ==
[~2018-09-19 11:57] MED LIST: Sodium Chloride 0.9% 15 ML NEB ONE
== END 2018-09-19 11:58 | disposition home or self-care (01) ==
LOC: WCC 11:57
PROVIDERS: ATTEND Family Medicine
DX: T81.89XD Other complications of procedures, not elsewhere classified, subsequent encounter (principal)
CPT/HCPCS: 97605; A4218

== ENCOUNTER 2018-09-23 09:31 | Outpatient (CLI) | payer OTHER, SELFPAY ==
--- NOTE | 2018-09-23 10:51 | PRG ---
DATE OF SERVICE: 09/23/2018 HISTORY: Mr. Buster Urena is a very pleasant 62-year-old gentleman, who presents to the Wound Center for evaluation of an ulceration of the left medial ankle. 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 He stated that he developed an infectious process of his left lower leg and subsequently deep venous thrombosis of the left lower extremity. He stated that the wound of his left lower leg in the region of the medial malleolus developed after wearing loafers with significant edema of his left lower extremity. The patient stated he worked in entire shift with significant left lower extremity edema resulting in the ulceration. The patient stated that he was seen by his primary care physician, Dr. Herrera the following day. He stated that he was admitted to [facility] for approximately 14 days. The patient stated that he required readmission for 4 days and a second readmission for approximately 17 days. The patient stated that while at home, he had been changing his dressing 4 times a day because of drainage associated with his wound. He stated that he was last readmitted to [facility] for an infectious process. He stated that during this admission, his ulceration was debrided at bedside by Dr. Gillette. Negative pressure therapy was initiated, and upon discharge from [facility], the patient was referred to the Wound Center for assistance with dressing changes of the wound VAC. PHYSICAL EXAMINATION: VITAL SIGNS: Temperature 97.7, pulse 83, respirations 21, and blood pressure 158/90. EXTREMITIES: An ulceration of the left lower leg in the region of the medial malleolus is still present. The dimensions of the wound are approximately 6.7 x 4.7 cm. The dimensions of the wound at the time of the patient's visit on 09/09/2018 were approximately 6.0 x 7.2 cm. Granulation tissue is present within the wound margins. No purulent drainage is associated with the wound. No erythema of the skin surrounding the wound is present. No maceration of the skin of the periwound is noted. Less edema of the left foot and lower leg is present on exam today than at the time of the patient's visit on 09/09/2018. ASSESSMENT AND PLAN: 1. Ulceration of left lower leg in the region of the medial malleolus as described above. Negative pressure therapy will be continued with dressing changes of the wound VAC here in the Wound Center. The 3M Coban 2 Layer Compression System will be applied to the left foot and lower leg in conjunction with the wound VAC. The patient will be seen by Dr. Gillette next week. I will see Mr. Urena again in 2 weeks. The patient has been given a release from work as well as prescriptions for Adilson and Eliquis. 2. Hypertension. 3. Seasonal allergies. 4. Deep venous thrombosis of left lower extremity. 5. Anemia. Job ID: [id number]
[2018-09-23] MEDS ORDERED: Sodium Chloride 0.9% 15 ML NEB ONE (15:00)
== END 2018-09-23 09:32 | disposition home or self-care (01) ==
LOC: WCC 09:31
PROVIDERS: ATTEND Family Medicine
DX: L97.329 Non-pressure chronic ulcer of left ankle with unspecified severity (principal); I10 Essential (primary) hypertension; J30.2 Other seasonal allergic rhinitis; I82.402 Acute embolism and thrombosis of unspecified deep veins of left lower extremity; D64.9 Anemia, unspecified
CPT/HCPCS: A4218

== ENCOUNTER 2018-09-26 16:06 | Outpatient (CLI) | payer OTHER, SELFPAY ==
[2018-09-28] MEDS ORDERED: Sodium Chloride 0.9% 15 ML NEB ONE (14:30)
== END 2018-09-26 16:07 | disposition home or self-care (01) ==
LOC: WCC 16:06
PROVIDERS: ATTEND Family Medicine
DX: T81.89XD Other complications of procedures, not elsewhere classified, subsequent encounter (principal)
CPT/HCPCS: 97605

== ENCOUNTER 2018-10-01 08:09 | Outpatient (CLI) | payer OTHER, SELFPAY ==
[2018-10-01] MEDS ORDERED: Sodium Chloride 0.9% 15 ML NEB ONE (18:00)
== END 2018-10-01 08:10 | disposition home or self-care (01) ==
LOC: WCC 08:09
PROVIDERS: ATTEND Family Medicine
DX: T81.89XD Other complications of procedures, not elsewhere classified, subsequent encounter (principal)
CPT/HCPCS: A4218

== ENCOUNTER 2018-10-04 08:01 | Outpatient (CLI) | payer OTHER, SELFPAY ==
[2018-10-04] MEDS ORDERED: Sodium Chloride 0.9% 15 ML NEB ONE (15:00)
== END 2018-10-04 08:02 | disposition home or self-care (01) ==
LOC: WCC 08:01
PROVIDERS: ATTEND Family Medicine
DX: T81.89XD Other complications of procedures, not elsewhere classified, subsequent encounter (principal)
CPT/HCPCS: A4218

== ENCOUNTER 2018-10-09 16:01 | Outpatient (CLI) | payer OTHER, SELFPAY ==
--- NOTE | 2018-10-09 15:15 | PRG ---
DATE OF SERVICE: 10/09/2018 HISTORY: Mr. Buster Urena is a very pleasant 62-year-old gentleman who presents to the Wound Center for evaluation of an ulceration of the left medial ankle. 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 He stated that he developed an infectious process of his left lower leg and subsequently deep venous thrombosis of the left lower extremity. He stated that the wound of his left lower leg in the region of the medial malleolus developed after wearing loafers with significant edema of his left lower extremity. The patient stated he worked an entire shift with significant left lower extremity edema resulting in the ulceration. The patient stated that he was seen by his primary care physician, Dr. Herrera the following day. He stated that he was admitted to [facility] for approximately 14 days. The patient stated that he required readmission for 4 days and a second readmission for approximately 17 days. The patient stated that while at home, he had been changing his dressing 4 times a day because of drainage associated with his wound. He stated that he was last readmitted to [facility] for an infectious process. He stated that during this admission, his ulceration was debrided at bedside by Dr. Gillette. Negative pressure therapy was initiated, and upon discharge from [facility], the patient was referred to the Wound Center for assistance with dressing changes of the wound VAC. The patient has completed a course of negative pressure therapy and is now receiving dressing changes of Xeroform gauze in conjunction with the 3M Coban 2 Layer Compression System as per Dr. Gillette. OBJECTIVE: VITAL SIGNS: Temperature 98.3, pulse 87, respirations 18, and blood pressure 123/90. EXTREMITIES: An ulceration of the left lower leg in the region of the medial malleolus is still present. The dimensions of the wound are approximately 5.9 x 4.1 cm. The dimensions of the wound at the time of the patient's visit on 09/23/2018, were approximately 6.7 x 4.7 cm. Granulation tissue is present within the wound margins. No purulent drainage is associated with the wound. No erythema of the skin surrounding the wound is present. No maceration of the skin of the periwound is noted. Edema of the left foot and lower leg is still present on today's exam. ASSESSMENT AND PLAN: 1. Ulceration of left lower leg in the region of the medial malleolus as described above. Xeroform gauze, ABD, Webril, and the 3M Coban 2 Layer Compression System will be applied to the ulceration today. The patient will be seen by Dr. Gillette next week. I will see Mr. Urena again in 2 weeks. 2. Hypertension. 3. Seasonal allergies. 4. Deep venous thrombosis of left lower extremity. 5. Anemia. Job ID: [id number]
== END 2018-10-09 16:02 | disposition home or self-care (01) ==
LOC: WCC 16:01
PROVIDERS: ATTEND Family Medicine
DX: L97.929 Non-pressure chronic ulcer of unspecified part of left lower leg with unspecified severity (principal); I10 Essential (primary) hypertension; J30.2 Other seasonal allergic rhinitis; I82.402 Acute embolism and thrombosis of unspecified deep veins of left lower extremity; D64.9 Anemia, unspecified
CPT/HCPCS: A4218

== ENCOUNTER 2018-10-16 08:06 | Outpatient (CLI) | payer SELFPAY | END 2018-10-16 08:07 | disposition home or self-care (01) | LOC: WCC 08:06 | PROVIDERS: ATTEND Family Medicine | DX: T81.89XD Other complications of procedures, not elsewhere classified, subsequent encounter (principal) | CPT/HCPCS: 97605 ==

== ENCOUNTER 2018-10-24 10:25 | Outpatient (CLI) | payer SELFPAY ==
--- NOTE | 2018-10-24 10:20 | PRG ---
DATE OF SERVICE: 10/24/2018 HISTORY: Mr. Buster Urena is a very pleasant 62-year-old gentleman, who presents to the Wound Center for evaluation of an ulceration of the left medial ankle. 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 He stated that he developed an infectious process of his left lower leg and subsequently deep venous thrombosis of the left lower extremity. He stated that the wound of his left lower leg in the region of the medial malleolus developed after wearing loafers with significant edema of his left lower extremity. The patient stated he worked an entire shift with significant left lower extremity edema resulting in the ulceration. The patient stated that he was seen by his primary care physician, Dr. Herrera, the following day. He stated that he was admitted to [facility] for approximately 14 days. The patient stated that he required readmission for 4 days and a second readmission for approximately 17 days. The patient stated that while at home, he had been changing his dressing 4 times a day because of drainage associated with his wound. He stated that he was last readmitted to [facility] for an infectious process. He stated that during this admission, his ulceration was debrided at bedside by Dr. Gillette. Negative pressure therapy was initiated, and upon discharge from [facility], the patient was referred to the Wound Center for assistance with dressing changes of the wound VAC. The patient has completed a course of negative pressure therapy and is now receiving dressing changes of Xeroform gauze in conjunction with the 3M Coban 2 Layer Compression System as per Dr. Gillette. ABDs and Webril are also utilized at the time of dressing changes. PHYSICAL EXAMINATION: VITAL SIGNS: Temperature 97.9, pulse 76, respirations 20, blood pressure 130/101. EXTREMITIES: An ulceration of the left lower leg in the region of the medial malleolus is still present. The dimensions of the wound are approximately 4.7 x 4.3 cm. The dimensions of the wound at the time of the patient's visit on 10/09/2018 were approximately 5.9 x 4.1 cm. Granulation tissue is present within the wound margins. No purulent drainage is associated with the wound. No erythema of the skin surrounding the wound is present. No maceration of the skin of the periwound is noted. No significant edema of the left foot or lower leg is present on exam today. ASSESSMENT AND PLAN: 1. Ulceration of left lower leg in the region of the medial malleolus as described above. Xeroform gauze, an ABD, Webril, and the 3M Coban 2 Layer Compression System will be applied to the ulceration today. The patient will be seen by Dr. Gillette next week. I will see Mr. Urena again in 2 weeks. 2. Hypertension. 3. Seasonal allergies. 4. Deep venous thrombosis of left lower extremity. 5. Anemia. Job ID: [id number]
== END 2018-10-24 10:26 | disposition home or self-care (01) ==
LOC: WCC 10:25
PROVIDERS: ATTEND Family Medicine
DX: L97.329 Non-pressure chronic ulcer of left ankle with unspecified severity (principal); I10 Essential (primary) hypertension; J30.2 Other seasonal allergic rhinitis; I82.402 Acute embolism and thrombosis of unspecified deep veins of left lower extremity; D64.9 Anemia, unspecified
CPT/HCPCS: 29581; A4218

== ENCOUNTER 2018-10-31 08:17 | Outpatient (CLI) | payer SELFPAY ==
[2018-10-31] MEDS ORDERED: Sodium Chloride 0.9% 15 ML NEB ONE (09:00)
== END 2018-10-31 08:18 | disposition home or self-care (01) ==
LOC: WCC 08:17
PROVIDERS: ATTEND Family Medicine
DX: T81.89XD Other complications of procedures, not elsewhere classified, subsequent encounter (principal)
CPT/HCPCS: 97605; A4218

== ENCOUNTER 2018-11-07 09:06 | Outpatient (CLI) | payer SELFPAY ==
--- NOTE | 2018-11-07 09:59 | PRG ---
DATE OF SERVICE: 11/07/2018 HISTORY: Mr. Buster Urena is a very pleasant 63-year-old gentleman who presents to the Wound Center for evaluation of an ulceration of the left medial ankle. 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 He stated that he developed an infectious process of his left lower leg and subsequently deep venous thrombosis of the left lower extremity. He stated that the wound of his left lower leg in the region of the medial malleolus developed after wearing loafers with significant edema of his left lower extremity. The patient stated he worked an entire shift with significant left lower extremity edema resulting in the ulceration. The patient stated that he was seen by his primary care physician, Dr. Herrera, the following day. He stated that he was admitted to [facility] for approximately 14 days. The patient stated that he required readmission for 4 days and a second readmission for approximately 17 days. The patient stated that while at home, he had been changing his dressing 4 times a day because of drainage associated with his wound. He stated that he was last readmitted to [facility] for an infectious process. He stated that during this admission, his ulceration was debrided at bedside by Dr. Gillette. Negative pressure therapy was initiated, and upon discharge from [facility], the patient was referred to the Wound Center for assistance with dressing changes of the wound VAC. The patient has completed a course of negative pressure therapy and is now receiving dressing changes of Xeroform gauze in conjunction with the 3M Coban 2 Layer Compression System as per Dr. Gillette. ABDs and Webril are also utilized at the time of dressing changes. PHYSICAL EXAMINATION: VITAL SIGNS: Temperature 98.0, pulse 77, respirations 16, and blood pressure 122/84. EXTREMITIES: An ulceration of the left lower leg in the region of the medial malleolus is present. The dimensions of the wound are approximately 4.2 x 3.2 cm. The dimensions of the wound at the time of the patient's visit on 10/24/2018, were approximately 4.7 x 4.3 cm. Granulation tissue is present within the wound margins. Three samples of granulation tissue were excised with the use of scissors and sent for aerobic and anaerobic cultures. No purulent drainage is associated with the wound. Erythema of the skin surrounding the wound is present. No maceration of the skin of the periwound is noted. No significant edema of the left foot or lower leg is present on exam today. Portions of the wound bed are associated with eschar. ASSESSMENT AND PLAN: 1. Ulceration of left lower leg in the region of the medial malleolus as described above. Erythema of the skin surrounding the wound is present, and portions of the wound bed are associated with eschar. The patient has been given a prescription for Bactrim DS, #21, p.o. b.i.d. x10 days. Antibiotic therapy will be modified based upon the results of the tissue cultures obtained today. Xeroform gauze, an ABD, Webril, and the 3M Coban 2 Layer Compression System will be applied to the ulceration today. The patient will be seen by Dr. Gillette in 1 week. I will see Mr. Urena again in 2 weeks. 2. Hypertension. 3. Seasonal allergies. 4. Deep venous thrombosis of the left lower extremity. 5. Anemia. Job ID: [id number]
== END 2018-11-07 09:07 | disposition home or self-care (01) ==
LOC: WCC 09:06
PROVIDERS: ATTEND Family Medicine
DX: L97.929 Non-pressure chronic ulcer of unspecified part of left lower leg with unspecified severity (principal); L53.9 Erythematous condition, unspecified; I10 Essential (primary) hypertension; I82.402 Acute embolism and thrombosis of unspecified deep veins of left lower extremity; J30.2 Other seasonal allergic rhinitis; D64.9 Anemia, unspecified
CPT/HCPCS: 87070; 87077; 87186; 87205; A4218

== ENCOUNTER 2018-11-14 08:35 | Outpatient (CLI) | payer SELFPAY ==
[2018-11-14] MEDS ORDERED: Sodium Chloride 0.9% 15 ML NEB ONE (09:00)
== END 2018-11-14 08:36 | disposition home or self-care (01) ==
LOC: WCC 08:35
PROVIDERS: ATTEND Family Medicine
DX: T81.89XD Other complications of procedures, not elsewhere classified, subsequent encounter (principal)
CPT/HCPCS: 29581; A4218

== ENCOUNTER 2018-11-21 11:13 | Outpatient (CLI) | payer SELFPAY ==
--- NOTE | 2018-11-21 09:49 | PRG ---
DATE OF SERVICE: 11/21/2018 HISTORY: Mr. Buster Urena is a very pleasant 63-year-old gentleman, who presents to [facility] for evaluation of an ulceration of the left medial ankle. 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 He stated that he developed an infectious process of his left lower leg and subsequently deep venous thrombosis of the left lower extremity. He stated that the wound of his left lower leg in the region of the medial malleolus developed after wearing loafers with significant edema of his left lower extremity. The patient stated he worked an entire shift with significant left lower extremity edema resulting in the ulceration. The patient stated that he was seen by his primary care physician, Dr. Herrera the following day. He stated that he was admitted to [facility] for approximately 14 days. The patient stated that he required readmission for 4 days and a second readmission for approximately 17 days. The patient stated that while at home, he had been changing his dressing 4 times a day because of drainage associated with his wound. He stated that he was last readmitted to [facility] for an infectious process. He stated that during this admission, his ulceration was debrided at bedside by Dr. Gillette. Negative pressure therapy was initiated, and upon discharge from [facility], the patient was referred to the [facility]ound Center for assistance with dressing changes of the wound VAC. The patient has completed a course of negative pressure therapy and is now receiving dressing changes of Xeroform gauze in conjunction with the 3M Coban 2 Layer Compression System as per Dr. Gillette. ABDs and Webril are also utilized at the time of dressing changes. PHYSICAL EXAMINATION: VITAL SIGNS: Temperature 97.8, pulse 75, respirations 19, and blood pressure 129/85. EXTREMITIES: An ulceration of the left lower leg in the region of the medial malleolus is present. The dimensions of the wound are approximately 2.0 x 2.0 cm. The dimensions of the wound at the time of the patient's visit on 11/07/2018 were approximately 4.2 x 3.2 cm. Granulation tissue is present within the wound margins. Necrotic and nonviable tissue present within the wound margins was debrided with an excisional full-thickness debridement with the use of a curette. No purulent drainage is associated with the wound. No erythema of the skin surrounding the wound is present. No maceration of the skin of the periwound is noted. No significant edema of the left foot or lower leg is present on exam today. ASSESSMENT AND PLAN: 1. Ulceration of left lower leg in the region of the medial malleolus as described above. Xeroform gauze, Webril and the 3M Coban 2 Layer Compression System will be applied to the ulceration today. The patient is to discontinue his compression wrap in 1 week and begin wearing compression garments. The patient has been given a prescription for compression stockings knee-high open or closed toe to yield a compression of 20 to 30 mmHg. The patient has been reassured that the wound has almost healed completely. The patient has a followup visit with Dr. Gillette in early November. Mr. Urena will be discharged from clinic today with followup on a p.r.n. basis. 2. Hypertension. 3. Seasonal allergies. 4. Deep venous thrombosis of the left lower extremity. 5. Anemia. Job ID: [id number]
[~2018-11-21 11:13] MED LIST changes: +Lidocaine 2% PF 100 mg/5 ml Syringe ONE
== END 2018-11-21 11:14 | disposition home or self-care (01) ==
LOC: WCC 11:13
PROVIDERS: ATTEND Family Medicine
DX: L97.929 Non-pressure chronic ulcer of unspecified part of left lower leg with unspecified severity (principal); I10 Essential (primary) hypertension; D64.9 Anemia, unspecified; I82.402 Acute embolism and thrombosis of unspecified deep veins of left lower extremity; J30.2 Other seasonal allergic rhinitis
CPT/HCPCS: A4218; J2001

== ENCOUNTER 2020-03-12 14:46 | Outpatient (CLI) | payer MEDICARE ==
--- NOTE | 2020-03-12 15:27 | RAD ---
Exam:2 views right hip HISTORY: Pain COMPARISON: None FINDINGS: Degenerative change loss of joint space height, sclerosis and subchondral cyst formation. P rominent osteophyte formation is identified. IMPRESSION: Severe degenerative change of the right hip.
== END 2020-03-12 14:47 | disposition home or self-care (01) ==
LOC: BICRAD 14:46
PROVIDERS: ATTEND Family Medicine
DX: M25.551 Pain in right hip (principal); M16.11 Unilateral primary osteoarthritis, right hip

== ENCOUNTER 2020-10-05 08:15 | Outpatient (CLI) | payer MEDICARE ==
[2020-10-06 13:25] LABS: SARS-CoV-2 PCR by NAA Not Detected (NotDetected)
== END 2020-10-05 08:16 | disposition home or self-care (01) ==
LOC: LABBT 08:15
PROVIDERS: ATTEND Internal Medicine Cardiovascular Disease
DX: Z01.818 Encounter for other preprocedural examination (principal); I48.91 Unspecified atrial fibrillation; Z20.822 Contact with and (suspected) exposure to COVID-19
CPT/HCPCS: 93005; U0003; U0005; 93010

== ENCOUNTER 2020-10-17 03:52 | Emergency (ER) | payer MEDICARE ==
[2020-10-17] MEDS ORDERED: Calcium Chloride 1 GM/10 ML Abboject SYRINGE ONE (04:01)
[2020-10-17] MEDS ORDERED: Atropine Sulfate 1 mg/10 ml Syringe ONE (04:01)
[2020-10-17] MEDS ORDERED: EPINEPHrine 1 MG/10 ML Abboject SYRINGE ONE (04:01)
[2020-10-17] MEDS ORDERED: Sodium Bicarb 50 MEQ/50 ML Abboject 8.4% SYRINGE ONE (04:01)
[2020-10-17] MEDS ORDERED: Norepinephrine 8 MG/0.9% NS 250 ML ONE (04:08)
[2020-10-17 04:48] LABS: Band 38 % (5-11); Hemoglobin 17.2 g/dL (14.0-18.0); Lymphocytes 13 % (21-51); MDiff Complete? YES; Mean Corpuscular HGB CONC 34.4 g/dL (32.0-36.0); Mean Corpuscular Hemoglobin 31.3 pg (27.0-31.0); Mean Corpuscular Volume 91.1 fL (78.0-98.0); Mean Platelet Volume 13.1 fL (7.4-10.4); Metamyelocyte 1 % (0-0); Monocytes 6 % (0-10); Neutrophil 27 % (42-75); Platelet Count 58 thou/uL (130-400); Platelet Morphology Comment Appears Decreased; RBC Distribution Width 12.3 % (11.5-14.5); RBC Morphology Normal; Reactive Lymphocytes 15 % (0-10); Red Blood Cell (RBC) Count 5.49 mill/uL (4.70-6.10); Toxic Granulation MODERATE; Vacuoles MODERATE; White Blood Cell (WBC) Count 20.8 thou/uL (4.8-10.8)
[2020-10-17 04:49] LABS: ALT (SGPT) 576 U/L (8-55); AST (SGOT) 1508 U/L (5-34); Albumin 2.7 g/dL (3.4-4.8); Alkaline Phosphatase 109 U/L (40-110); BUN (Urea Nitrogen) 46 mg/dL (8.4-25.7); Bilirubin, Total 1.3 mg/dL (0.2-1.2); Calc. Creatinine Clearance 0 mL/min (70-130); Calcium 9.2 mg/dL (7.8-10.44); Carbon Dioxide Less than 8 mmol/L (23-31); Chloride 90 mmol/L (98-107); Globulin 3.1 g/dL (2.4-3.5); Glucose 45 mg/dL (80-115); Potassium 5.8 mmol/L (3.5-5.1); Protein, Total 5.8 g/dL (5.8-8.1); Sodium 129 mmol/L (136-145)
== END 2020-10-17 04:29 | disposition expired ==
LOC: ERS 03:52
DX: I46.9 Cardiac arrest, cause unspecified (principal); I10 Essential (primary) hypertension
CPT/HCPCS: 36415; 36556; 80053; 83605; 84484; 85025; 85060; 93005; 96374; 96375; J0171; J0461